=== PATIENT | female | born 1950 | race Caucasian/White ===

== ENCOUNTER → 2024-08-07 | Outpatient (CLI) | payer MEDICAID, SELFPAY ==
--- NOTE | 2024-08-07 14:05 | XR_ITS ---
Examination: Bone densitometry Date and time of exam:August 07, 2024 1415 hours INDICATIONS: Menopause age 51 Technique: Lumbar spine and hip total bone mineralization values of an calculated. Peak reference and age match control results have been displayed. Findings: Lumbar spine total bone mineralization is0.879 gm/cm2. This is 1.5 standard deviations below peak reference. This is 0.8 standard deviations above age-matched controls. Hip total bone mineralization is 0.888 gm/cm2 This is 0.4 standard deviations below peak reference. This is 1.2 standard deviations above age-matched controls Impression: There is osteopenia based on lumbar spine measurements. There is osteopenia based on hip measurements Lumbar mineralization is decreased 16.6% compared with August 25, 2017 Hip mineralization is decreased 15.9% compared with August 25, 2017
== END | disposition home or self-care (01) ==
PROVIDERS: PCP Physician Assistant; Referring Provider Physician Assistant; Visit Provider Physician Assistant
DX: M85.89 Other specified disorders of bone density and structure, multiple sites (principal)
CPT/HCPCS: 77080

== ENCOUNTER 2024-11-17 10:17 | Inpatient (IN) | payer MEDICARE, MEDICAID, SELFPAY ==
--- NOTE | 2024-11-17 | XR_ITS ---
Examination: CT abdomen with intravenous contrast CT pelvis with intravenous contrast 2-D coronal reconstructions 2-D sagittal reconstructions Date and time of exam:November 17, [address] abdomen and pelvis without contrast November 17, 2024 INDICATIONS: Left lower abdominal pain this week, acute sigmoid diverticulitis, suspicious for a 32 mm. Diverticular abscess on this CT abdomen and pelvis this morning. CTDI: vol (mGy) 32.9 DLP: (mGycm) 1315 Technique: Multiple axial sections of the abdomen and pelvis have been obtained. 64 slice high-resolution scanner used. 3 mm axial sections have been obtained, post intravenous injection 30 cc Isovue 300 2-D sagittal, coronal reconstructions obtained. Low dose protocols were performed. One or more of the following dose reduction techniques were used; automated exposure control, adjustment of the mA and/or KV according to patient size, use of iterative reconstruction technique. Findings: There is very poor opacification of the abdominal structures Absent gallbladder Left ileostomy again depicted Sigmoid diverticulitis again noted with a 4.5 x 3.3 cm. Peridiverticular abscess This is contiguous with the upper margin of the bladder and there is marked wall thickening in the bladder. IMPRESSION: Acute sigmoid diverticulitis 4.5 x 3.3 cm pelvic abscess Findings remains suspicious for fistulous communication diverticular abscess to the urinary bladder with marked cystitis
[2024-11-17 10:19] VITALS: BMI 26.9
[2024-11-17 10:45] VITALS: BP 143/72; PULSE 88; RESP 16; TEMP 36.8; O2SAT 96
--- NOTE | 2024-11-17 11:03 | XR_ITS ---
Examination: CT abdomen and pelvis without contrast. Coronal 3-D reconstructions. Sagittal 2-D reconstructions. Date and time of exam:November 17, 2024 1129 hrs. Comparison December 29, 2021 Indications: Painful urination one week, history appendectomy cholecystectomy colostomy secondary to diverticulitis CTDI: vol (mGy): 10.4 DLP: (mGycm): 524 Technique: Axial images of the abdomen have been obtained, 3 mm slice thickness Intravenous contrast material has not been administered. Low dose protocols were performed. One or more of the following dose reduction techniques were used; automated exposure control, adjustment of the mA and/or KV according to patient size, use of iterative reconstruction technique. Findings: No focal liver or splenic lesions Absent gallbladder No pancreatic or adrenal mass Left ileostomy Minimal fluid distended small bowel loops No bowel obstruction Absent appendix Mild acute sigmoid diverticulitis Suspicious for 32 mm peridiverticular abscess axial image 173 on this noncontrast study Urinary bladder wall thickening, suspicious for fistulous communication between the abscess and the urinary bladder Impression: Acute sigmoid diverticulitis Suspicious for 32 mm peridiverticular abscess on this noncontrast study Suspicious for fistulous communication between the abscess and the urinary bladder producing marked cystitis pattern Repeating this study with intravenous contrast would be helpful
--- NOTE | 2024-11-17 11:23 | PD.EDADULT ---
ED General RME/HPI General Chief complaint: Urogenital-Female Stated complaint: DYSURIA X2 WEEKS ON ABX Time Seen by Provider: 11/17/24 11:08 Arrival date/time: 11/17/24 10:17 Limitations: no limitations RME / HPI RME / HPI narrative: DR. BRADLEY MAIN ED EVALUATION: 74 year old female with past medical history significant for chronic kidney disease presents to the Emergency Department with complaint of dysuria and mild hematuria onset 2 weeks. Patient states she went to see her PCP on Monday, 6 days ago, and was prescribed macrobid for her UTI, which helped for a couple of days but now worsening again in the last 2 days. Patient is nauseous but no vomiting or diarrhea. Related Data Home Medications ?Medication ?Instructions ?Recorded ?Confirmed MONTELUKAST SODIUM 10 mg PO QDAY 30 days ##0 06/08/17 12/29/21 losartan 50 mg tablet 50 mg PO QDAY 12/30/21 12/30/21 Held on 01/01/22. Instructions: Resume on 01/24/22. Follow-up with nephrology and PCP within 2 weeks of discharge prior to resuming this medication Allergies Allergy/AdvReac Type Severity Reaction Status Date / Time codeine Allergy Intermediate Rash Verified 11/17/24 10:18 Review of Systems Review of Systems Systems Reviewed: All systems reviewed, normal except as documented Past Medical History Past Medical History CARDIAC: Positive Cardiac Disorders, Hypercholesterolemia and Hypertension RESPIRATORY: Positive Chronic Obstructive Pulmonary Disease (COPD), Bronchitis and Pneumonia GASTROINTESTINAL: Positive Gastrointestinal Disorders and Gall Bladder Disease GENITOURINARY: Positive Genitourinary Disorders REPRODUCTIVE: Positive Previous Pregnancies PSYCHO/SOCIAL: Positive Depression and Anxiety OTHER HISTORY: Positive Hospitalization Family History FAMILY HISTORY: Positive Family Psychiatric Problems, Family Respiratory Disorders, Family Cardiac Disorders and Family Surgery Surgical History SURGICAL: Positive Gastrostomy Social History SMOKING STATUS: Never smoker SUBSTANCE USE: does not use ALCOHOL: Never ED Exam General Limitations: Present no limitations General appearance: Present alert and in no apparent distress Head Head exam: Present atraumatic, normocephalic and normal inspection Eye Eye exam: Present normal appearance, PERRL and EOMI ENT ENT exam: Present normal exam, normal oropharynx and mucous membranes moist Neck Neck exam: Present normal inspection, full ROM and trachea midline Chest Chest inspection: Present normal inspection and symmetric chest wall rise Respiratory Respiratory exam: Present normal lung sounds bilaterally Cardiovascular Cardiovascular exam: Present regular rate, normal rhythm and normal heart sounds Abdominal Exam Abdominal exam: Present soft, normal bowel sounds and other (left colostomy bag, stools in place) Extremities Exam Extremities exam: Present normal inspection and full ROM Back Exam Back exam: Present normal inspection and full ROM Neurological Exam Neurological exam: Present alert, oriented X3 and CN II-XII intact Psychiatric Psychiatric exam: Present normal affect and normal mood Skin Skin exam: Present warm, dry, intact and normal color Course Quality Measures none Orders Category Date Time Status COVID-19 Screening Questionnaire NOW Care 11/17/24 17:[address] Screening NOW Care 11/17/24 12:41 Active Decision to Admit X1 Care 11/17/24 17:17 Active Insert [Insert IV] NOW Care 11/17/24 11:26 Active Consult to General Surgery Stat Cons 11/17/24 17:[address] abdomen pelvis w con Stat Exams 11/17/[address] abdomen pelvis wo con Stat Exams 11/17/24 11:03 Completed Blood Culture (Lab) Stat Lab 11/17/24 13:00 Received CBC Stat Lab 11/17/24 11:40 Completed Comprehensive Metabolic Panel Stat Lab 11/17/24 11:40 Completed Lactic Acid [Lactate (Lactic Acid)] Stat Lab 11/17/24 13:04 Completed Lipase Stat Lab 11/17/24 11:40 Completed UA, C/S IF [Urinalysis, C/S if Indicated] Stat Lab 11/17/24 11:32 Completed Urine Culture Stat Lab 11/17/24 11:32 Received Famotidine Inj [Pepcid Inj] Med 11/17/24 11:29 Discontinued 20 mg IVP X1 ONE Ondansetron Inj [Zofran Inj] Med 11/17/24 11:26 Discontinued 4 mg IV X1 ONE Piper/Tazo 3.375 gm Premix [Zosyn] Med 11/17/24 12:49 Discontinued 3.375 gm in 50 ml IV X1 Piper/Tazo 3.375 gm Premix [Zosyn] Med 11/17/24 19:00 Active 3.375 gm in 50 ml IV X1 Sodium Chloride 0.9% 1000 ml [Ns] 1,000 ml Med 11/17/24 11:26 Discontinued IV 999 mls/hr Vital Signs Vital signs: Vital Signs Temperature 98.3 F 05/25/25 10:45 Pulse Rate 88 11/17/24 10:45 Respiratory Rate 16 11/17/24 10:45 Blood Pressure 143/72 H 11/17/24 10:45 Pulse Oximetry (%) 96 11/17/24 10:45 Oxygen Delivery Method Room Air 11/17/24 10:45 Critical Care Time Critical Care Time Critical Care Time: Yes Total Critical Care Time (min.): 80 Attestation: The high probability of sudden, clinically significant deterioration in the patient?s condition required the highest level of my preparedness to intervene urgently. The services I provided to this patient were to treat and/or prevent clinically significant deterioration. Services included the following: chart data review, reviewing nursing notes and/or old charts, documentation time, client care consultant collaboration regarding findings and treatment options, medication orders and management, direct patient care, vital sign assessments and ordering, interpreting and reviewing diagnostic studies and lab tests. Aggregate critical care time includes only time during which I was engaged in work directly related to the patient?s care, as described above, whether at bedside or elsewhere in the Emergency Department. It did not include time spent performing other reported procedures or the services of residents, students, nurses or physician assistants. Discharge Plan Plan Patient Disposition: Admit Acute Care w/in Hospital Prescriptions/Referrals Prescriptions/Med Rec: No Action MONTELUKAST SODIUM 10 MG tablet 10 mg PO QDAY 30 Days Qty: 0 losartan 50 mg Tablet 50 mg PO QDAY Referrals: Katharina Arana PA-C [Primary Care Provider] - In 1 week Problem List Clinical Impression: Diverticulitis of sigmoid colon, Pelvic abscess Patient/Caregiver Discharge Instructions Print Language: Spanish Stand Alone Forms: Josette Award Info., Patient Portal Info Letter MDM Narrative [facility] hospital course: I, Dyan Salgado am scribing for and in the presence of Dr. Bradley. Abdomen/pelvis CT came back and showed acute sigmoid diverticulitis, and suspicious for 32 mm peridiverticular abscess on this noncontrast study and/or fistulous communication between the abscess and the urinary bladder producing marked cystitis pattern. We will repeat this study with intravenous contrast. Abdomen/pelvis CT with contrast showed acute sigmoid diverticulitis, 4.5 x 3.3 cm pelvic abscess, and findings remains suspicious for fistulous communication diverticular abscess to the urinary bladder with marked cystitis. Clinical Information Provided by patient Medical Records Reviewed [facility] Meds/Rx Considered, not Ordered None Labs/Rad/Tests considered, not Ordered None Chronic Illness/Social Conditions Add or document further as needed: chronic kidney disease Lab Interpretation Labs: see narrative above Imaging Imaging interpretation: see narrative above Radiology reports / interpretation(s): Procedure(s): CT abdomen pelvis wo con Accession Number(s): [id number] cc: Katharina Arana PA-C; John (NIA),Ignacio KRAMER; Manjinder Palacios MD~ Examination: CT abdomen and pelvis without contrast. Coronal 3-D reconstructions. Sagittal 2-D reconstructions. Date and time of exam:November 17, 2024 1129 hrs. Comparison December 29, 2021 Indications: Painful urination one week, history appendectomy cholecystectomy colostomy secondary to diverticulitis CTDI: vol (mGy): 10.4 DLP: (mGycm): 524 Technique: Axial images of the abdomen have been obtained, 3 mm slice thickness Intravenous contrast material has not been administered. Low dose protocols were performed. One or more of the following dose reduction techniques were used; automated exposure control, adjustment of the mA and/or KV according to patient size, use of iterative reconstruction technique. Findings: No focal liver or splenic lesions Absent gallbladder No pancreatic or adrenal mass Left ileostomy Minimal fluid distended small bowel loops No bowel obstruction Absent appendix Mild acute sigmoid diverticulitis Suspicious for 32 mm peridiverticular abscess axial image 173 on this noncontrast study Urinary bladder wall thickening, suspicious for fistulous communication between the abscess and the urinary bladder Impression: Acute sigmoid diverticulitis Suspicious for 32 mm peridiverticular abscess on this noncontrast study Suspicious for fistulous communication between the abscess and the urinary bladder producing marked cystitis pattern Repeating this study with intravenous contrast would be helpful Dictated By: Manjinder Palacios MD Procedure(s): CT abdomen pelvis w con Accession Number(s): [id number] cc: Katharina Arana PA-C; Shelton Bradley MD; Manjinder Palacios MD~ Examination: CT abdomen with intravenous contrast CT pelvis with intravenous contrast 2-D coronal reconstructions 2-D sagittal reconstructions Date and time of exam:November 17, [address] abdomen and pelvis without contrast November 17, 2024 INDICATIONS: Left lower abdominal pain this week, acute sigmoid diverticulitis, suspicious for a 32 mm. Diverticular abscess on this CT abdomen and pelvis this morning. CTDI: vol (mGy) 32.9 DLP: (mGycm) 1315 Technique: Multiple axial sections of the abdomen and pelvis have been obtained. 64 slice high-resolution scanner used. 3 mm axial sections have been obtained, post intravenous injection 30 cc Isovue 300 2-D sagittal, coronal reconstructions obtained. Low dose protocols were performed. One or more of the following dose reduction techniques were used; automated exposure control, adjustment of the mA and/or KV according to patient size, use of iterative reconstruction technique. Findings: There is very poor opacification of the abdominal structures Absent gallbladder Left ileostomy again depicted Sigmoid diverticulitis again noted with a 4.5 x 3.3 cm. Peridiverticular abscess This is contiguous with the upper margin of the bladder and there is marked wall thickening in the bladder. IMPRESSION: Acute sigmoid diverticulitis 4.5 x 3.3 cm pelvic abscess Findings remains suspicious for fistulous communication diverticular abscess to the urinary bladder with marked cystitis Dictated By: Manjinder Palacios MD Medication Administration(s) Medication Administration History Piperacillin/Tazobactam/Dextrose (Zosyn) 3.375 gm in 50 mls @ 100 mls/hr IV X1 ONE Stop: 11/17/24 19:29 Discontinued Medications Famotidine (Famotidine Inj 10 Mg/Ml Vial 2 Ml) 20 mg IVP X1 ONE Stop: 11/17/24 11:30 Last Admin: 11/17/24 11:46 Dose: 20 mg Documented By: AMANDA Sodium Chloride (Ns) 1,000 mls @ 999 mls/hr IV .Q1H1M ONE Stop: 11/17/24 12:26 Last Infusion: 11/17/24 13:05 Dose: Infused Documented By: Admin: 11/17/24 11:45 Dose: 999 mls/hr Documented By: AMANDA Piperacillin/Tazobactam/Dextrose (Zosyn) 3.375 gm in 50 mls @ 100 mls/hr IV X1 ONE Stop: 11/17/24 13:18 Last Infusion: 11/17/24 13:38 Dose: Infused Documented By: Admin: 11/17/24 13:05 Dose: 100 mls/hr Documented By: AMANDA Ondansetron HCl (Ondansetron Inj 2 Mg/Ml Inj 2 Ml) 4 mg IV X1 ONE; Protocol Stop: 11/17/24 11:27 Last Admin: 11/17/24 11:46 Dose: 4 mg Documented By: AMANDA Consultations/Discussions re: Management Consult #1: Date/time: 11/17/24 5:14 pm Physician, specialty, service, details: Discussed test HPI, PMHx, lab, radiology results and/or management with Dr. Soto. Will consult an admission to the hospitalist. Consult #2: Date/time: 11/17/24 5:15 pm Physician, specialty, service, details: Discussed test HPI, PMHx, lab, radiology results and/or management with resident Dr. Velasquez working with the hospitalist. Will admit for further evaluation and management. Accepts patient for admission. Diagnosis Differential diagnosis: UTI, pyelonephritis, sepsis Most likely dx, and/or detailed dx discussion: Acute sigmoid diverticulitis Pelvis abscess Fistula between the abscess and the bladder Dispositon Disposition: Admit
[2024-11-17] MEDS: SODIUM CHLORIDE 0.9% 1000 ML 1,000 ML 999 ML IV (11:45)
[2024-11-17] MEDS: FAMOTIDINE INJ 10 MG/ML VIAL 2 ML 20 MG IVP (11:46)
[2024-11-17] MEDS: ONDANSETRON INJ 2 MG/ML INJ 2 ML 4 MG IV (11:46)
[2024-11-17 12:05] LABS: Collection Type, Urine Clean Catch
[2024-11-17 12:11] LABS: Basophils # (Auto) 0.1 Thou/mm3 (0.0-0.2); Basophils % (Auto) 0 % (0-2.5); Eosinophils # (Auto) 0.1 Thou/mm3 (0.0-0.5); Eosinophils % (Auto) 1 % (0-10); Hematocrit 35.2 % (36.0-46.0); Hemoglobin 11.7 g/dL (12.0-16.0); Immature Granulocytes % (Auto) 1 % (0-0); Immature Granulocytes Auto 0.11 Thou/mm3 (0.00-0.00); Lymphocytes % (Auto) 29 % (10-50); Mean Corpuscular HGB Conc 33.2 g/dl (31.0-37.0); Mean Corpuscular Volume 87 fL (80-100); Monocytes # (Auto) 1.5 Thou/mm3 (0.0-0.8); Monocytes % (Auto) 11 % (0-12); Neutrophils # (Auto) 8.1 Thou/mm3 (1.8-7.7); Neutrophils % (Auto) 58 % (37-80); Nucleated Red Blood Cell % 0 /100 WBC (0); Platelet Count 386 Thou/mm3 (140-440); RDW Standard Deviation 39.8 fL (36.4-46.3); Red Blood Count 4.04 Miln/mm3 (4.00-5.20); White Blood Count 13.8 Thou/mm3 (3.6-11.0)
[2024-11-17 12:34] LABS: Alanine Aminotransferase 26 U/L (10-49); Albumin/Globulin Ratio 1.2 (1.2-2.2); Alkaline Phosphatase 96 U/L (46-116); Anion Gap 11 (7-16); Aspartate Amino Transferase 19 U/L (0-34); BUN/Creatinine Ratio 19 Ratio (12-20); Bilirubin,Total 0.5 mg/dL (0.3-1.2); Blood Urea Nitrogen 26 mg/dL (9-23); Calcium 8.6 mg/dL (8.3-10.6); Calcium (Corrected) 8.6 mg/dL (8.5-10.1); Chloride 107 mMol/L (98-107); Creatinine (Component) 1.4 mg/dL (0.6-1.3); Estimated Creatinine Clearance 32.1 mL/min (>60); Globulin 3.3 gm/dL (2.3-3.5); Glucose 79 mg/dL (74-106); Lipase 45 U/L (12-53); Osmolality,Calculated 290 (275-295); Potassium 4.3 mMol/L (3.4-5.1); Sodium 144 mMol/L (136-145); Total Protein 7.3 gm/dL (5.7-8.2); eGFR 40 See Note
[2024-11-17 12:45] LABS: Bilirubin,Urine Negative (Negative); Blood,Urine 1+ (Negative); Color,Urine Yellow (Lt Yel-Yel); Glucose, Urine Negative (Negative); Ketones,Urine Negative (Negative); Leukocyte Esterase,Urine Negative (Negative); Nitrite,Urine Negative (Negative); PH,Urine 6.5 (5.0-7.0); Protein,Urine 2+ (Neg - Trace); RBC,Urine 7 /hpf (0-3); Squamous Epithelial Cell,Urine 8 /hpf (0-5); Transitional Epi Cells,Urine < 1 /hpf (0-5); Urobilinogen,Urine Negative mg/dL (0.0-1.0); WBC,Urine 12 /hpf (0-5)
[2024-11-17 12:55] LABS: Clarity,Urine Hazy (Clear/Hazy); Culture Indicated,Urine Yes
[2024-11-17] MEDS: PIPER/TAZO 3.375 GM PREMIX 3.375 GM/50 ML BAG IV ×2 (13:05→21:14)
[2024-11-17 13:07] LABS: Lactate (Lactic Acid) 0.9 mMol/L (0.4-2.0)
[2024-11-17 14:35] VITALS: BP 162/75; PULSE 74; RESP 16; TEMP 36.7; O2SAT 95
--- NOTE | 2024-11-17 17:25 | PD.RESHP ---
Documentation for date of: 11/17/24 HPI History of Present Illness Chief complaint: suprapubic/abdominal pain History of present illness: 74-year-old female with past medical history of chronic kidney disease, diverticulosis, COPD, hypertension, history of ileostomy presented to the ED due to abdominal pain. Patient states she had suprapubic pain about 2 weeks ago pain was exacerbated when she urinated took antifungal thinking it was yeast infection however did not improve and later went to her primary care physician who prescribed nitrofurantoin and rifampin finished a course about 2 days ago but did not improve. Patient states her belly feels swollen and is having left lower quadrant and suprapubic pain that it gets worse with changing in position. At this time patient denies fever, chills, shortness of breath, chest pain, nausea, vomiting, recent sick contacts. Patient will be admitted for acute diverticulitis. ED course: ED vitals: BP 143/72, HR 88, RR 16, O2 sat 96% on room air ED labs: Leukocytosis, normocytic anemia, BUN 26, creatinine 1.4, GFR 40, UA shows +2 protein, +1 blood, 7 RBCs, [address] abdomen pelvis shows acute sigmoid diverticulitis with 4.5 x 3.3 cm pelvic abscess, fistulous communication diverticular abscess to urinary bladder with marked cystitis In the ED patient received Zosyn, famotidine, Zofran, 1 L NS PMHx: As above SX Hx: Ileostomy, appendectomy, cholecystectomy, Social Hx: Denies smoking, denies alcohol use denies illicit substances including THC FH X: Unknown allergies: Codeine causes rash Review of Systems Review of Systems Systems Reviewed: All systems reviewed, normal except as documented Narrative Review of Systems: All 12 systems reviewed and found normal unless otherwise stated in the HPi Exam Vital Signs Temp Pulse Resp BP Pulse Ox O2 Del Method 98.0 F 74 16 162/75 H 95 Room Air 11/17/24 14:35 11/17/24 14:35 11/17/24 14:35 11/17/24 14:35 11/17/24 14:35 11/17/24 14:35 Narrative Exam Physical Exam GENERAL: NAD, AAOx3 HEENT: Moist mucosa. Eyes open, symmetrical, & clear CARDIO: Heart RRR, no obvious murmurs PULM: No noted coughing/dyspnea CTA B/L, no R/W/R GI: Abdomen soft, nondistended, pain on palpation of left lower quadrant and suprapubic area ileostomy in place SKIN/MSK/EXT: No wounds/rashes/edema/amputations, no pain on palpation. Pedal pulses present B/L NEURO: AAOx3, no focal neuro deficits, able to move all 4 extremities Results: Labs 11/18/24 05:39 11/18/24 05:39 Labs: Short CBC 11/17/24 Range/Units 11:40 WBC 13.8 H (3.6-11.0) Thou/mm3 Hgb 11.7 L (12.0-16.0) g/dL Hct 35.2 L (36.0-46.0) % Plt Count 386 (140-440) Thou/mm3 BMP 11/17/24 11:40 Sodium 144 Potassium 4.3 Chloride 107 Carbon Dioxide 26.0 BUN 26 H Creatinine 1.4 H Glucose 79 Calcium 8.6 Liver Function 11/17/24 Range/Units 11:40 Total Bilirubin 0.5 (0.3-1.2) mg/dL AST 19 (0-34) U/L ALT 26 (10-49) U/L Alkaline Phosphatase 96 (46-116) U/L Albumin 4.0 (3.4-4.8) gm/dL Urine 11/17/24 Range/Units 11:32 Urine Color Yellow (Lt Yel-Yel) Urine Clarity Hazy (Clear/Hazy) Urine pH 6.5 (5.0-7.0) Ur Specific [place] 1.020 (1.001-1.035) Urine Protein 2+ A (Neg - Trace) Urine Glucose (UA) Negative (Negative) Quality Measures Quality Measures none Advance care planning discussed with:: patient Medications Home Medications and Allergies Home Medications ?Medication ?Instructions ?Recorded ?Confirmed ?Type losartan 50 mg tablet 50 mg PO QDAY 12/30/21 11/17/24 History Held on 01/01/22. Instructions: Resume on 01/24/22. Follow-up with nephrology and PCP within 2 weeks of discharge prior to resuming this medication carvedilol 12.5 mg tablet 12.5 mg PO 2XD 11/17/24 11/17/24 History nitrofurantoin 100 mg PO 1XD 11/17/24 11/17/24 History monohydrate/macrocrystals 100 mg capsule simvastatin 40 mg tablet 40 mg PO 1XD 11/17/24 11/17/24 History Allergies Allergy/AdvReac Type Severity Reaction Status Date / Time codeine Allergy Intermediate Rash Verified 11/17/24 10:18 Visit Medications Piperacillin/Tazobactam/Dextrose (Zosyn) 3.375 gm in 50 mls @ 100 mls/hr IV X1 ONE Stop: 11/17/24 19:29 Discontinued Medications Famotidine (Famotidine Inj 10 Mg/Ml Vial 2 Ml) 20 mg IVP X1 ONE Stop: 11/17/24 11:30 Last Admin: 11/17/24 11:46 Dose: 20 mg Sodium Chloride (Ns) 1,000 mls @ 999 mls/hr IV .Q1H1M ONE Stop: 11/17/24 12:26 Last Infusion: 11/17/24 13:05 Dose: Infused Piperacillin/Tazobactam/Dextrose (Zosyn) 3.375 gm in 50 mls @ 100 mls/hr IV X1 ONE Stop: 11/17/24 13:18 Last Infusion: 11/17/24 13:38 Dose: Infused Ondansetron HCl (Ondansetron Inj 2 Mg/Ml Inj 2 Ml) 4 mg IV X1 ONE; Protocol Stop: 11/17/24 11:27 Last Admin: 11/17/24 11:46 Dose: 4 mg Assessment & Plan Plan 74-year-old female with past medical history of CKD, diverticulosis, COPD, hypertension presented to the ED with left lower quadrant and suprapubic pain. Admitted for diverticulitis #Acute sigmoid diverticulitis #Peridiverticular abscess Patient states her belly feels swollen and is having left lower quadrant and suprapubic pain that it gets worse with changing in position Findings on CT show 4.5 x 3.3 cm abscess contiguous with the upper margin of the bladder and there is marked wall thickening ? on Zosyn ( ? Follow-up cultures ? IV fluids ? Clear liquid diet ? General Surgery Dr. Patel consulted, appreciate recommendations #CKD stage IIIb ? on IVF ? Avoid nephrotoxins ? Renally dose medications #COPD ? DuoNebs as needed #Hypertension ? Resume losartan 50 mg daily as taken at home once med rec is done Health Maintenance: Disposition: Med telemetry, IV antibiotics Fluids: NS Feeding: Clear liquid diet Thrombo prophylaxis: Lovenox Gastric Ulcer prophylaxis: Pantoprazole CODE STATUS: Limited code, no intubation Case discussed with my attending Dr. Kathia Toledo MD PGY-1 Attending Provider Attestation/Addendum Luz Maria Murphy, , attest that I was physically present for the valdez portions of the service and evaluated the patient with the resident and I reviewed and discussed the case with the resident and agree with the resident's findings and plans of care as documented above Patient is a 74-year-old female with past medical history of CKD,, hypertension and diverticulitis status post ileostomy and bowel resection who was brought to ED due to worsening abdominal pain. Patient states that she has had pain with urination for the past 2 weeks and was given Pyridium and antibiotics. However, she continued to have excruciating pain with urination in her suprapubic region. Patient subsequently brought to the ED due to worsening abdominal pain during which CT abdomen pelvis was done showing acute sigmoid diverticulitis with a suspicious 32 mm peridiverticular abscess and suspicious for fistulous communication between the abscess and urinary bladder causing cystitis pattern. Patient denies noting any changes in her urine including passing air or any discharge. Bowel movements have been regular. Patient states that she follows with Dr. Tr ahuja in [place] and plans for reversal of ileostomy in the near future. Patient has had previous episodes of diverticular abscess and noted to have a scar in her left lower quadrant due to abscess drainage. Ileostomy has been functioning and tissue appear healthy. She endorses having some pain and tenderness to palpation in her left lower quadrant. Will admit patient to med/telemetry for further workup and medical management of acute diverticulitis complicated by abscess. Will start on IV antibiotics and follow-up cultures. IR currently not available due to weekend. But will consult IR on Monday once available. Surgeon will be following and case was discussed with surgeon at bedside.
[2024-11-17 18:01] VITALS: BP 153/75; PULSE 78; RESP 18; TEMP 37; O2SAT 95
[2024-11-17 18:29] VITALS: PULSE 76; RESP 17; O2SAT 94
--- NOTE | 2024-11-17 18:37 | PD.SURCONS ---
HPI Consult details History of present illness: 74F HTN, COPD, CKD, chronic diverticulitis s/p diverting colostomy at [facility] (Dr Armando) planned for reversal in December, presenting with a painful UTI. Patient reports she has been having severe pain with urination for the past 2 weeks, had been prescribed Macrobid but felt that her symptoms worsened prompting her to seek care in ER. She denies any pneumaturia or fecaluria, at the moment is not having any abdominal pain. She has mild nausea but no fever or malaise and states her colostomy has been functioning throughout this time PMH: HTN, COPD, CKD, chronic diverticulitis PSH: Appendectomy, cholecystectomy, diverting colostomy Meds: No antiplatelet or anticoagulation Allergies: Codeine causes rash Review of Systems Review of Systems ROS Unobtainable: All systems reviewed & no additional complaints except as documented Meds Home Medications and Allergies Home Medications ?Medication ?Instructions ?Recorded ?Confirmed ?Type MONTELUKAST SODIUM 10 mg PO QDAY 30 days ##0 06/08/17 12/29/21 History losartan 50 mg tablet 50 mg PO QDAY 12/30/21 12/30/21 History Held on 01/01/22. Instructions: Resume on 01/24/22. Follow-up with nephrology and PCP within 2 weeks of discharge prior to resuming this medication Allergies Allergy/AdvReac Type Severity Reaction Status Date / Time codeine Allergy Intermediate Rash Verified 11/17/24 10:18 Exam Vital Signs Temp Pulse Resp BP Pulse Ox O2 Del Method 98.6 F 76 17 153/75 H 94 L Room Air 11/17/24 18:01 11/17/24 18:29 11/17/24 18:29 11/17/24 18:01 11/17/24 18:29 11/17/24 18:01 Constitutional Constitutional: no acute distress Routine Respiratory Exam Respiratory: Present no resp distress Routine Abdominal Exam Abdominal: Present soft and ostomy (Colostomy pink with brown stool in appliance); Absent tenderness or distended Results Results: Laboratory Laboratory results: results reviewed Results: Imaging CT scan - abdomen: report reviewed Assessment & Plan Plan 74F HTN, COPD, CKD, chronic diverticulitis s/p diverting colostomy at [facility] (Dr Armando) planned for reversal in December, presenting with a painful UTI workup consistent with sigmoid diverticulitis and associated colovesicular fistula. Patient appears overall clinically well with no signs of severe infection, not requiring urgent intervention IV ABX CLD, advance as tolerated Percutaneous drainage if abscess is amenable Follow up with Dr. Armando as outpatient
[2024-11-17 19:15] VITALS: BP 145/77; PULSE 78; RESP 18; TEMP 37.2; O2SAT 93
[2024-11-17] MEDS: SODIUM CHLORIDE 0.9% 1000 ML 1,000 ML 60 ML IV (19:18)
--- NOTE | 2024-11-17 19:38 | PC.NURSE ---
REPORT GIVEN TO LAURENCE NIX AT [facility]
[2024-11-17 20:00] VITALS: PULSE 73
[2024-11-17] MEDS: MELATONIN 3 MG TABLET PO (21:14)
[2024-11-18] VITALS (9 sets, daily range): BP systolic 113–152; BP diastolic 62–86; PULSE 66–85; RESP 17–19; TEMP 36.3–36.9; O2SAT 93–97; BMI 26.9
[2024-11-18] MEDS: PIPER/TAZO 3.375 GM PREMIX 3.375 GM/50 ML BAG IV ×3 (05:05→20:45)
[2024-11-18] MEDS: ONDANSETRON INJ 2 MG/ML INJ 2 ML 4 MG IVP ×2 (06:02→20:15)
[2024-11-18 06:44] LABS: Alanine Aminotransferase 18 U/L (10-49); Albumin, Serum 3.5 gm/dL (3.4-4.8); Albumin/Globulin Ratio 1.3 (1.2-2.2); Alkaline Phosphatase 78 U/L (46-116); Anion Gap 11 (7-16); Aspartate Amino Transferase 15 U/L (0-34); BUN/Creatinine Ratio 13 Ratio (12-20); Bilirubin,Total 0.5 mg/dL (0.3-1.2); Blood Urea Nitrogen 18 mg/dL (9-23); Calcium 8.3 mg/dL (8.3-10.6); Calcium (Corrected) 8.7 mg/dL (8.5-10.1); Carbon Dioxide 24.8 mMol/L (20.0-31.0); Chloride 109 mMol/L (98-107); Creatinine (Component) 1.4 mg/dL (0.6-1.3); Estimated Creatinine Clearance 32.1 mL/min (>60); Globulin 2.7 gm/dL (2.3-3.5); Glucose 84 mg/dL (74-106); Magnesium 1.7 mg/dL (1.6-2.6); Osmolality,Calculated 289 (275-295); Potassium 4.2 mMol/L (3.4-5.1); Sodium 145 mMol/L (136-145); Total Protein 6.2 gm/dL (5.7-8.2); eGFR 40 See Note
[2024-11-18 07:07] LABS: Basophils # (Auto) 0.1 Thou/mm3 (0.0-0.2); Basophils % (Auto) 1 % (0-2.5); Eosinophils # (Auto) 0.1 Thou/mm3 (0.0-0.5); Eosinophils % (Auto) 1 % (0-10); Hematocrit 32.6 % (36.0-46.0); Hemoglobin 10.7 g/dL (12.0-16.0); Immature Granulocytes % (Auto) 1 % (0-0); Immature Granulocytes Auto 0.09 Thou/mm3 (0.00-0.00); Lymphocytes # (Auto) 2.3 Thou/mm3 (1.0-4.8); Lymphocytes % (Auto) 25 % (10-50); Mean Corpuscular HGB Conc 32.8 g/dl (31.0-37.0); Mean Corpuscular Hemoglobin 29.2 pg (25.0-35.0); Mean Corpuscular Volume 89 fL (80-100); Monocytes # (Auto) 0.9 Thou/mm3 (0.0-0.8); Monocytes % (Auto) 10 % (0-12); Neutrophils # (Auto) 5.9 Thou/mm3 (1.8-7.7); Neutrophils % (Auto) 63 % (37-80); Nucleated Red Blood Cell % 0 /100 WBC (0); Platelet Count 282 Thou/mm3 (140-440); RDW Standard Deviation 39.8 fL (36.4-46.3); Red Blood Count 3.67 Miln/mm3 (4.00-5.20); White Blood Count 9.4 Thou/mm3 (3.6-11.0)
[2024-11-18] MEDS: Magnesium Sulfate 4 GM Ivpb 4 GM/50 ML BAG IV (09:20)
[2024-11-18] MEDS: SENNA TABLET 1 TAB PO (09:20)
[2024-11-18] MEDS: ENOXAPARIN SOD INJ 40 MG/0.4 ML SYRINGE SC (09:20)
--- NOTE | 2024-11-18 11:33 | PD.RESPRO ---
Documentation for date of: 11/18/24 Subjective Subjective Interval history: 11/18/2024: No acute overnight events to report. Patient seen and examined in hospital bed reporting improvement in presenting symptoms; however, with examination she still has some tenderness to palpation of the left lower quadrant. Blood cultures are positive for GPC, likely contaminant but we will repeat blood cultures. General surgery recommends clear liquid diet and advancing as tolerated;, patient will be n.p.o. after midnight for CT-guided IR drainage of the abscess. Will continue to monitor and expect discharge within the next 24-48 hours. Exam Vital Signs Temp Pulse Resp BP Pulse Ox O2 Del Method 97.4 F 77 18 132/74 H 95 Room Air 11/18/24 08:00 11/18/24 08:15 11/18/24 08:15 11/18/24 08:00 11/18/24 08:15 11/18/24 08:00 Narrative Exam Physical Exam: GENERAL: Awake, answering questions appropriately, appears stated age HEENT: Moist mucosa. Eyes open, symmetrical, & clear CARDIO: Heart RRR, no obvious murmurs PULM: No noted coughing/dyspnea CTA B/L, no R/W/R GI: Abdomen soft, nondistended, pain on palpation of left lower quadrant and suprapubic area ileostomy in place SKIN/MSK/EXT: No wounds/rashes/edema/amputations, no pain on palpation. Pedal pulses present B/L NEURO: AAOx3, no focal neuro deficits, able to move all 4 extremities Objective Labs 11/19/24 04:40 11/19/24 04:40 Labs: Laboratory Results - last 24 hr 11/17/24 11/17/24 11/17/24 11:32 11:40 13:04 WBC 13.8 H RBC 4.04 Hgb 11.7 L Hct 35.2 L MCV 87 MCH 29.0 MCHC 33.2 RDW Std Deviation 39.8 Plt Count 386 Neut % (Auto) 58 Lymph % (Auto) 29 [place] % (Auto) 11 Eos % (Auto) 1 Baso % (Auto) 0 Neut # (Auto) 8.1 H Lymph # (Auto) 4.0 [place] # (Auto) 1.5 H Eos # (Auto) 0.1 Baso # (Auto) 0.1 Immature Gran # (Auto) 0.11 H Absolute Nucleated RBC 0.00 Immature Gran % 1 H Nucleated RBC % 0 Sodium 144 Potassium 4.3 Chloride 107 Carbon Dioxide 26.0 Anion Gap 11 BUN 26 H Creatinine 1.4 H Estim Creat Clear Calc 32.1 L eGFR 40 L BUN/Creatinine Ratio 19 Glucose 79 Calculated Osmolality 290 Lactic Acid 0.9 Calcium 8.6 Corrected Calcium 8.6 Phosphorus Magnesium Total Bilirubin 0.5 AST 19 ALT 26 Alkaline Phosphatase 96 Total Protein 7.3 Albumin 4.0 Globulin 3.3 Albumin/Globulin Ratio 1.2 Lipase 45 Ur Collection Type Clean Catch Urine Color Yellow Urine Clarity Hazy Urine pH 6.5 Ur Specific [place] 1.020 Urine Protein 2+ A Urine Glucose (UA) Negative Urine Ketones Negative Urine Blood 1+ A Urine Nitrite Negative Urine Bilirubin Negative Urine Urobilinogen (Auto) Negative Ur Leukocyte Esterase Negative Urine RBC 7 H Urine WBC 12 H Ur Squamous Epith Cells 8 H Ur Transition Epith Cell < 1 Urine Bacteria None Ur Culture Indicated? Yes 11/18/24 05:39 WBC 9.4 RBC 3.67 L Hgb 10.7 L Hct 32.6 L MCV 89 MCH 29.2 MCHC 32.8 RDW Std Deviation 39.8 Plt Count 282 D Neut % (Auto) 63 Lymph % (Auto) 25 [place] % (Auto) 10 Eos % (Auto) 1 Baso % (Auto) 1 Neut # (Auto) 5.9 Lymph # (Auto) 2.3 [place] # (Auto) 0.9 H Eos # (Auto) 0.1 Baso # (Auto) 0.1 Immature Gran # (Auto) 0.09 H Absolute Nucleated RBC 0.00 Immature Gran % 1 H Nucleated RBC % 0 Sodium 145 Potassium 4.2 Chloride 109 H Carbon Dioxide 24.8 Anion Gap 11 BUN 18 Creatinine 1.4 H Estim Creat Clear Calc 32.1 L eGFR 40 L BUN/Creatinine Ratio 13 Glucose 84 Calculated Osmolality 289 Lactic Acid Calcium 8.3 Corrected Calcium 8.7 Phosphorus 4.0 Magnesium 1.7 Total Bilirubin 0.5 AST 15 ALT 18 Alkaline Phosphatase 78 Total Protein 6.2 Albumin 3.5 D Globulin 2.7 Albumin/Globulin Ratio 1.3 Lipase Ur Collection Type Urine Color Urine Clarity Urine pH Ur Specific [place] Urine Protein Urine Glucose (UA) Urine Ketones Urine Blood Urine Nitrite Urine Bilirubin Urine Urobilinogen (Auto) Ur Leukocyte Esterase Urine RBC Urine WBC Ur Squamous Epith Cells Ur Transition Epith Cell Urine Bacteria Ur Culture Indicated? Quality Measures Quality Measures none Advance care planning discussed with:: patient Assessment & Plan Assessment Current Active Medications: Generic Name Dose Route Start Last Admin Trade Name Freq PRN Reason Stop Dose Admin Acetaminophen 650 mg 11/17/24 17:47 Acetaminophen 325 Mg Tablet PO 12/17/24 17:46 Q6H PRN Fever >99.5 Acetaminophen 1,000 mg 11/18/24 10:32 Acetaminophen 500 Mg Tablet PO 12/17/24 17:46 Q6H PRN PAIN SCALE 1-3 (mild Albuterol/Ipratropium 3 ml 11/17/24 18:20 Albuterol/Ipratropium (Duoneb) Rt Malissa 3 Ml Nebu INH 12/17/24 18:19 Q6H PRN SHORTNESS OF BREATH OR WHEEZE Docusate Sodium 100 mg 11/18/24 09:00 11/18/24 09:19 Docusate Sod 100 Mg Capsule PO 12/18/24 08:59 Not Given QDAY GRANT Protocol Enoxaparin Sodium 40 mg 11/18/24 09:00 11/18/24 09:20 Enoxaparin Sod Inj 40 Mg/0.4 Ml Syringe SC 12/02/24 08:59 40 mg QDAY GRANT Administration Piperacillin/Tazobactam/Dextrose 3.375 gm in 50 mls @ 12.5 mls/hr 11/17/24 22:00 11/18/24 05:05 Zosyn IV 11/24/24 21:59 12.5 mls/hr Q8HR GRANT Administration Sodium Chloride 1,000 mls @ 60 mls/hr 11/17/24 17:51 11/17/24 19:18 Ns IV 12/17/24 17:50 60 mls/hr .[id number] GRANT Administration Magnesium Sulfate 4 gm in 50 mls @ 12.5 mls/hr 11/18/24 07:54 11/18/24 09:20 Magnesium Sulfate Ivpb IV 11/18/24 11:53 12.5 mls/hr X1 ONE Administration Melatonin 3 mg 11/17/24 21:00 11/17/24 21:14 Melatonin 3 Mg Tablet PO 12/17/24 20:59 3 mg HS GRANT Administration Morphine Sulfate 2 mg 11/17/24 17:47 Morphine Sulf Inj 10 Mg/Ml Vial IVP 11/22/24 17:46 Q4H PRN PAIN SCALE 7-10 (Severe Ondansetron HCl 4 mg 11/17/24 17:47 11/18/24 06:02 Ondansetron Inj 2 Mg/Ml Inj 2 Ml IVP 12/17/24 17:46 4 mg Q6H PRN Administration NAUSEA OR VOMITING Protocol Sennosides 1 tab 11/18/24 09:00 11/18/24 09:20 Senna Tablet PO 12/18/24 08:59 1 tab QDAY GRANT Administration Protocol Plan 74-year-old female with past medical history of CKD, diverticulosis, COPD, hypertension presented to the ED with left lower quadrant and suprapubic pain. Admitted for diverticulitis with abscess. #Acute sigmoid diverticulitis #Peridiverticular abscess Patient states her belly feels swollen and is having left lower quadrant and suprapubic pain that it gets worse with changing in position Findings on CT show 4.5 x 3.3 cm abscess contiguous with the upper margin of the bladder and there is marked wall thickening Blood cultures positive on aerobic bottle with GPC; likely contaminant Plan: Continue IV Zosyn Repeat blood cultures sent Advancing diet, n.p.o. after midnight for CT-guided abscess drainage General Surgery Dr. Soto consulted, appreciate recommendations #CKD stage IIIb #Normocytic anemia, anemia of chronic disease #Electrolyte abnormalities Chronic medical condition, currently stable Anemia likely secondary to CKD Plan: Avoid nephrotoxic agents Renally dose medications when appropriate Monitor with morning labs Replete electrolytes when necessary Follow-up on iron panel, ferritin, reticulocyte count #COPD Chronic medical condition, patient is currently stable with no acute exacerbation Plan: DuoNebs as needed #Hypertension Patient on home losartan 50 mg daily Plan: Resume home medication Health Maintenance: Disposition: Med telemetry, IV antibiotics Fluids: NS Diet: Dysphagia I, renal; n.p.o. after midnight for CT-guided drainage of abscess DVT prophylaxis: Lovenox GI prophylaxis: Not needed Code: Limited code, no intubation Patient seen and assessed with attending Dr. Kathia Dennis, PGY-1 Attending Provider Attestation/Addendum Luz Maria Murphy, , attest that I was physically present for the valdez portions of the service and evaluated the patient with the resident and I reviewed and discussed the case with the resident and agree with the resident's findings and plans of care as documented above Patient seen and eval this a.m. She continues to have mild left lower quadrant pain. She endorses some dysuria. Afebrile overnight and no further episodes of chills. Will place patient n.p.o. after midnight and plan for CT-guided abscess drainage in a.m. by IR. Will continue with IV antibiotics at this time. Ileostomy appears to be functioning well.
--- NOTE | 2024-11-18 14:50 | PD.SURPROG ---
Documentation for date of: 11/18/24 Subjective Subjective Brief History: 74F HTN, COPD, CKD, chronic diverticulitis s/p diverting colostomy at [facility] (Dr Armando) planned for reversal in December, presenting with a painful UTI. Patient reports she has been having severe pain with urination for the past 2 weeks, had been prescribed Macrobid but felt that her symptoms worsened prompting her to seek care in ER. She denies any pneumaturia or fecaluria, at the moment is not having any abdominal pain. She has mild nausea but no fever or malaise and states her colostomy has been functioning throughout this time PMH: HTN, COPD, CKD, chronic diverticulitis PSH: Appendectomy, cholecystectomy, diverting colostomy Meds: No antiplatelet or anticoagulation Allergies: Codeine causes rash Narrative: Pain controlled, nausea this am but that has since improved, now tolerating pureed diet, remaining afebrile and WBC 9 from 13 Exam Vital Signs Temp Pulse Resp BP Pulse Ox O2 Del Method 97.9 F 69 19 144/73 H 95 Room Air 11/18/24 12:00 11/18/24 12:00 11/18/24 12:00 11/18/24 12:00 11/18/24 12:00 11/18/24 12:00 Constitutional Constitutional: no acute distress Routine Respiratory Exam Respiratory: Present no resp distress Routine Abdominal Exam Abdominal: Present soft; Absent tenderness or distended Results Results: Laboratory Laboratory results: results reviewed Assessment & Plan Plan 74F HTN, COPD, CKD, chronic diverticulitis s/p diverting colostomy at [facility] (Dr Armando) planned for reversal in December, presenting with a painful UTI workup consistent with sigmoid diverticulitis and associated colovesicular fistula. Patient appears overall clinically well with no signs of severe infection, not requiring urgent intervention Continue abx IR for possible percutaneous drainage tomorrow
--- NOTE | 2024-11-18 14:54 | PC.SS ---
rounding note: IR abscess
--- NOTE | 2024-11-18 15:05 | PC.SS ---
Maggie Blood is 74 year old female admitted to [facility] for Diverticulitis. SS conducted bedside contact with the patient to complete initial assessment and to discuss discharge planning.? SW used all precautionary measures to complete initial. Role and reason for the contact was explained to Maggie. Pt is alert and oriented times 4. Patient confirmed demographic information and is on facesheet and lives with her family. Patient identifies Lima Dao, granddaughter, as her surrogate decision maker. Pt states prior to hospitalization she is able to complete ADL?s independently. Pt does not use DME equipment nor O2. Pt confirmed no history of mental health or substance abuse. Pts PCP is Katharina Garcia last seen about 1-2 months ago. Pharmacy of choice is [facility]. Advance life directive discussed and pt not receptive. Pt does not have diabetes nor dialysis. If HH is needed then pt is receptive and no provider preference. Discharge options discussed and the pt will return home. ?Family will provide transportation upon DC. No further intervention required at this time, social work specialist would be available to address any further concerns. DC Plan: Home Contact: pranay Riversughter, Address: Confirmed on face sheet PCP: Katharina Garcia
[2024-11-18] MEDS: SODIUM CHLORIDE 0.9% 1000 ML 1,000 ML 60 ML IV (16:10)
[2024-11-18] MEDS: ACETAMINOPHEN 500 MG TABLET 1000 MG PO (20:13)
[2024-11-18] MEDS: MELATONIN 3 MG TABLET PO (20:17)
[2024-11-19] VITALS (15 sets, daily range): BP systolic 115–167; BP diastolic 52–98; PULSE 55–86; RESP 14–23; TEMP 36–36.7; O2SAT 94–100
[2024-11-19] MEDS: PIPER/TAZO 3.375 GM PREMIX 3.375 GM/50 ML BAG IV ×3 (05:20→21:34)
[2024-11-19 05:56] LABS: Basophils # (Auto) 0.1 Thou/mm3 (0.0-0.2); Basophils % (Auto) 1 % (0-2.5); Eosinophils # (Auto) 0.2 Thou/mm3 (0.0-0.5); Eosinophils % (Auto) 2 % (0-10); Hematocrit 31.4 % (36.0-46.0); Hemoglobin 10.5 g/dL (12.0-16.0); Immature Granulocytes % (Auto) 1 % (0-0); Immature Granulocytes Auto 0.07 Thou/mm3 (0.00-0.00); Immature Reticulocyte Fraction 13.1 % (3.0-15.9); Lymphocytes # (Auto) 1.9 Thou/mm3 (1.0-4.8); Lymphocytes % (Auto) 24 % (10-50); Mean Corpuscular HGB Conc 33.4 g/dl (31.0-37.0); Mean Corpuscular Hemoglobin 29.3 pg (25.0-35.0); Mean Corpuscular Volume 88 fL (80-100); Monocytes # (Auto) 0.8 Thou/mm3 (0.0-0.8); Monocytes % (Auto) 11 % (0-12); Neutrophils # (Auto) 4.7 Thou/mm3 (1.8-7.7); Neutrophils % (Auto) 61 % (37-80); Nucleated Red Blood Cell % 0 /100 WBC (0); Platelet Count 274 Thou/mm3 (140-440); RDW Standard Deviation 39.2 fL (36.4-46.3); Red Blood Count 3.58 Miln/mm3 (4.00-5.20); Reticulocyte % (Auto) 1.3 % (0.5-1.5); Reticulocyte Absolute Auto 44.8 Biln/L (25.0-75.0); Reticulocyte Hgb Content 33.9 pg (28.0-35.0); White Blood Count 7.6 Thou/mm3 (3.6-11.0)
[2024-11-19 06:13] LABS: Alanine Aminotransferase 18 U/L (10-49); Albumin, Serum 3.5 gm/dL (3.4-4.8); Albumin/Globulin Ratio 1.2 (1.2-2.2); Alkaline Phosphatase 77 U/L (46-116); Anion Gap 9 (7-16); Aspartate Amino Transferase 16 U/L (0-34); BUN/Creatinine Ratio 9 Ratio (12-20); Bilirubin,Total 0.5 mg/dL (0.3-1.2); Blood Urea Nitrogen 15 mg/dL (9-23); Calcium 9.2 mg/dL (8.3-10.6); Calcium (Corrected) 9.6 mg/dL (8.5-10.1); Carbon Dioxide 25.3 mMol/L (20.0-31.0); Chloride 108 mMol/L (98-107); Creatinine (Component) 1.7 mg/dL (0.6-1.3); Estimated Creatinine Clearance 26.4 mL/min (>60); Glucose 91 mg/dL (74-106); Magnesium 2.9 mg/dL (1.6-2.6); Osmolality,Calculated 283 (275-295); Phosphorous 4.1 mg/dL (2.4-5.1); Sodium 142 mMol/L (136-145); Total Protein 6.5 gm/dL (5.7-8.2); eGFR 31 See Note
[2024-11-19 06:33] LABS: Ferritin 405 ng/mL (7.3-270.7); Iron 45 mcg/dL (50-170); Percent Iron Saturation 21 % (20-55); Total Iron Binding Capacity 212 mcg/dL (250-425); Unsaturated Iron Binding 167 (225-295)
[2024-11-19 09:03] LABS: Partial Thromboplastin Time 28.8 Seconds (22.0-36.0)
--- NOTE | 2024-11-19 09:22 | XR_ITS ---
Examination: CT-guided percutaneous catheter drainage pelvic abscess CT abdomen pelvis without intravenous contrast Date and time of procedure: November 19, 2024 1040 hours INDICATIONS: Abdominal pain this week, CT abdomen pelvis November 17, 2024 4.5 cm pelvic abscess adjacent to acute sigmoid diverticulitis Informed consent provided. A timeout was completed verifying correct patient, procedure, site and positioning. Technique: Axial 3 mm sections were obtained for localization of the pelvic abscess Appropriate area is marked. The patient's site was prepped and draped in sterile fashion Maximal sterile barrier technique utilized, including hand hygiene Local anesthesia was obtained with 1% lidocaine. Low dose protocols were performed. One or more of the following dose reduction techniques were used; automated exposure control, adjustment of the mA and/or KV according to patient size, use of iterative reconstruction technique. Pelvic abscess is much smaller on the current study, 2.8 cm in maximum transverse dimension Utilizing fluoroscopic guidance 5 Thai catheter placed in the abscess with aspiration of 6 cc purulent material sent to laboratory for culture and sensitivity. Estimated blood loss 0 cc Complete pathology report to follow. Impression: Much smaller pelvic abscess on this study compared with November 17, [address]-guided percutaneous catheter drainage of the pelvic abscess
[2024-11-19] MEDS: fentaNYL CIT INJ 50 mCg/ML AMP 2ML 100 MCG IVP (10:46)
--- NOTE | 2024-11-19 11:47 | ESPR_ITS ---
Documentation for date of: 11/19/24 Subjective Subjective Interval history: no acute overnight events reported. Pt is seen and examined at bedside this morning. Pt underwent IR drainage for the abscess and 6cc of purulent material was removed and sent for culture. Post drainage pt is seen again and reports significant improvement of her symptoms. Denies abdominal pain or tenderness, is able to tolerate oral diet. repeat BC show no growth at 24 hours. Vitals and labs are stable with the exception of creatinine uptrende to 1.7, although Pt has CKD due to worsenig creatinine will hold home losartan and start pt on amlodipin and resume losartan upon discharge. pt has no other complains and is eager to go home. Exam Vital Signs Temp Pulse Resp BP Pulse Ox O2 Del Method O2 Flow Rate 98.0 F 75 16 164/60 H 99 Nasal Cannula 3 11/19/24 09:55 11/19/24 11:11 11/19/24 11:11 11/19/24 11:11 11/19/24 11:11 11/19/24 11:11 11/19/24 11:11 Narrative Exam GENERAL: A&Ox3 . Awake, Not in acute distress NEURO: no focal neurological deficits HEENT: Atraumatic, Normocephalic. mucous membranes moist. Eyes open, symmetrical, & clear HEART: Normal Heart Sounds LUNGS: Clear to auscultation with no wheezing or crackles. ABDOMEN: soft, non-distended, no guarding or rebound tenderness SKIN: No Rash or ecchymoses EXTREMITIES: No edema, tenderness, able to move all 4 extremities, pedal pulses palpated Objective Labs 11/20/24 05:26 11/20/24 05:26 Labs: Laboratory Results - last 24 hr 11/19/24 04:40 WBC 7.6 RBC 3.58 L Hgb 10.5 L Hct 31.4 L MCV 88 MCH 29.3 MCHC 33.4 RDW Std Deviation 39.2 Plt Count 274 Neut % (Auto) 61 Lymph % (Auto) 24 [place] % (Auto) 11 Eos % (Auto) 2 Baso % (Auto) 1 Neut # (Auto) 4.7 Lymph # (Auto) 1.9 [place] # (Auto) 0.8 Eos # (Auto) 0.2 Baso # (Auto) 0.1 Immature Gran # (Auto) 0.07 H Absolute Nucleated RBC 0.00 Immature Gran % 1 H Nucleated RBC % 0 Retic Count (auto) 1.3 Absolute Retic 44.8 Immature Retic Fraction 13.1 Retic Hgb Content CHr 33.9 PT 11.0 INR 1.0 APTT 28.8 Sodium 142 Potassium 4.0 Chloride 108 H Carbon Dioxide 25.3 Anion Gap 9 BUN 15 Creatinine 1.7 H Estim Creat Clear Calc 26.4 L eGFR 31 L BUN/Creatinine Ratio 9 L Glucose 91 Calculated Osmolality 283 Calcium 9.2 Corrected Calcium 9.6 Phosphorus 4.1 Magnesium 2.9 H Iron 45 L TIBC 212 L Iron Saturation 21 Unsat Iron Binding 167 L Ferritin 405 H Total Bilirubin 0.5 AST 16 ALT 18 Alkaline Phosphatase 77 Total Protein 6.5 Albumin 3.5 Globulin 3.0 Albumin/Globulin Ratio 1.2 Quality Measures Quality Measures none Advance care planning discussed with:: patient Assessment & Plan Assessment Current Active Medications: Generic Name Dose Route Start Last Admin Trade Name Freq PRN Reason Stop Dose Admin Acetaminophen 650 mg 11/17/24 17:47 Acetaminophen 325 Mg Tablet PO 12/17/24 17:46 Q6H PRN Fever >99.5 Acetaminophen 1,000 mg 11/18/24 10:32 11/18/24 20:13 Acetaminophen 500 Mg Tablet PO 12/17/24 17:46 1,000 mg Q6H PRN Administration PAIN SCALE 1-3 (mild Albuterol/Ipratropium 3 ml 11/17/24 18:20 Albuterol/Ipratropium (Duoneb) Rt Malissa 3 Ml Nebu INH 12/17/24 18:19 Q6H PRN SHORTNESS OF BREATH OR WHEEZE Amlodipine Besylate 5 mg 11/19/24 10:15 Amlodipine Besylate 5 Mg Tablet PO 12/19/24 10:14 QDAY [facility] Docusate Sodium 100 mg 11/18/24 09:00 11/19/24 07:54 Docusate Sod 100 Mg Capsule PO 12/18/24 08:59 Not Given QDAY [facility] Protocol Enoxaparin Sodium 40 mg 11/18/24 09:00 11/18/24 09:20 Enoxaparin Sod Inj 40 Mg/0.4 Ml Syringe SC 12/02/24 08:59 40 mg QDAY [facility] Administration Piperacillin/Tazobactam/Dextrose 3.375 gm in 50 mls @ 12.5 mls/hr 11/17/24 22:00 11/19/24 05:20 Zosyn IV 11/24/24 21:59 12.5 mls/hr Q8HR GRANT Administration Sodium Chloride 1,000 mls @ 100 mls/hr 11/19/24 07:32 Ns IV 12/19/24 07:31 .Q10H GRANT Melatonin 3 mg 11/17/24 21:00 11/18/24 20:17 Melatonin 3 Mg Tablet PO 12/17/24 20:59 3 mg HS GRANT Administration Morphine Sulfate 2 mg 11/17/24 17:47 Morphine Sulf Inj 10 Mg/Ml Vial IVP 11/22/24 17:46 Q4H PRN PAIN SCALE 7-10 (Severe Ondansetron HCl 4 mg 11/17/24 17:47 11/18/24 20:15 Ondansetron Inj 2 Mg/Ml Inj 2 Ml IVP 12/17/24 17:46 4 mg Q6H PRN Administration NAUSEA OR VOMITING Protocol Sennosides 1 tab 11/18/24 09:00 11/19/24 07:54 Senna Tablet PO 12/18/24 08:59 Not Given QDAY GRANT Protocol Plan 74-year-old female with past medical history of CKD, diverticulosis, COPD, hypertension presented to the ED with left lower quadrant and suprapubic pain. Admitted for diverticulitis with abscess. #Acute sigmoid diverticulitis #Peridiverticular abscess, s/p drainage by IR Patient states her belly feels swollen and is having left lower quadrant and suprapubic pain that it gets worse with changing in position Findings on CT show 4.5 x 3.3 cm abscess contiguous with the upper margin of the bladder and there is marked wall thickening Blood cultures positive on aerobic bottle with GPC; likely contaminant Plan: Continue IV Zosyn Repeat blood cultures show no growth at [address]-guided abscess drainage on 11/19 and 6cc of purulent material removed and sent for culture General Surgery Dr. Soto consulted, appreciate recommendations #KAILA on CKD stage IIIb #Normocytic anemia, anemia of chronic disease #Electrolyte abnormalities Chronic medical condition, currently stable Anemia likely secondary to CKD Plan: Will hold home losartan due to worsening creatinine, will resume upon discharge Avoid nephrotoxic agents Renally dose medications when appropriate Monitor with morning labs Replete electrolytes when necessary Iron panel(Iron 45, TIBC 212, unsat iron 167)- ferritin 405, reticulocyte count pending #COPD Chronic medical condition, patient is currently stable with no acute exacerbation Plan: DuoNebs as needed #Primary Hypertension Patient on home Losartan 50 mg daily Plan: Holding home Losartan due to worsening creatinine, started pt on amlodipine 5mg during hospitalization. will consider resuming home Losartan on discharge as creatinine improves Health Maintenance: Disposition: Med telemetry, IV antibiotics Fluids: NS Diet: regular diet DVT prophylaxis: Lovenox GI prophylaxis: Not needed Code: Limited code, no intubation Assessment and plan discussed with attending physician Dr. Kathia Kim (PGY-1)- Internal medicine resident Attending Provider Attestation/Addendum ILuz Maria, , attest that I was physically present for the valdez portions of the service and evaluated the patient with the resident and I reviewed and discussed the case with the resident and agree with the resident's findings and plans of care as documented above Patient seen and evaluated this AM. She states she is feeling much improved today since her dysuria has resolved. Pending CT guiding abscess drainage today by IR. Patient reports improvement of LLQ pain. Continue with IV abx and follow up with cultures. Will hold losartan and switch to amlodipine due to KAILA. Increased rate of IV fluids.
[2024-11-19] MEDS: ONDANSETRON INJ 2 MG/ML INJ 2 ML 4 MG IVP (11:56)
[2024-11-19] MEDS: amLODIPine BESYLATE 5 MG TABLET PO (14:05)
[2024-11-19] MEDS: SODIUM CHLORIDE 0.9% 1000 ML 1,000 ML 100 ML IV ×2 (14:06→23:21)
[2024-11-19] MEDS: MELATONIN 3 MG TABLET PO (21:34)
[2024-11-19] MEDS: ACETAMINOPHEN 500 MG TABLET 1000 MG PO (21:37)
[2024-11-20] VITALS: BP 135/66; PULSE 85; RESP 18; TEMP 36.3; O2SAT 96
--- NOTE | 2024-11-20 00:21 | PC.NURSE ---
okay to stop fluids per MD Rodríguez
[2024-11-20 04:00] VITALS: BP 129/69; PULSE 68; PULSE 73; RESP 17; TEMP 36.2; O2SAT 96
[2024-11-20] MEDS: PIPER/TAZO 3.375 GM PREMIX 3.375 GM/50 ML BAG IV (05:51)
[2024-11-20 06:05] LABS: Basophils # (Auto) 0.1 Thou/mm3 (0.0-0.2); Basophils % (Auto) 1 % (0-2.5); Eosinophils # (Auto) 0.1 Thou/mm3 (0.0-0.5); Eosinophils % (Auto) 2 % (0-10); Hematocrit 33.6 % (36.0-46.0); Hemoglobin 11.2 g/dL (12.0-16.0); Immature Granulocytes % (Auto) 1 % (0-0); Immature Granulocytes Auto 0.06 Thou/mm3 (0.00-0.00); Lymphocytes # (Auto) 2.2 Thou/mm3 (1.0-4.8); Lymphocytes % (Auto) 31 % (10-50); Mean Corpuscular HGB Conc 33.3 g/dl (31.0-37.0); Mean Corpuscular Hemoglobin 29.1 pg (25.0-35.0); Mean Corpuscular Volume 87 fL (80-100); Monocytes # (Auto) 0.6 Thou/mm3 (0.0-0.8); Monocytes % (Auto) 8 % (0-12); Neutrophils # (Auto) 4.2 Thou/mm3 (1.8-7.7); Neutrophils % (Auto) 58 % (37-80); Nucleated Red Blood Cell % 0 /100 WBC (0); Platelet Count 258 Thou/mm3 (140-440); RDW Standard Deviation 39.4 fL (36.4-46.3); Red Blood Count 3.85 Miln/mm3 (4.00-5.20); White Blood Count 7.2 Thou/mm3 (3.6-11.0)
[2024-11-20 06:32] LABS: Alanine Aminotransferase 18 U/L (10-49); Albumin, Serum 3.5 gm/dL (3.4-4.8); Albumin/Globulin Ratio 1.1 (1.2-2.2); Alkaline Phosphatase 74 U/L (46-116); Anion Gap 9 (7-16); Aspartate Amino Transferase 14 U/L (0-34); BUN/Creatinine Ratio 8 Ratio (12-20); Bilirubin,Total 0.3 mg/dL (0.3-1.2); Blood Urea Nitrogen 12 mg/dL (9-23); Calcium 9.2 mg/dL (8.3-10.6); Calcium (Corrected) 9.6 mg/dL (8.5-10.1); Carbon Dioxide 24.6 mMol/L (20.0-31.0); Chloride 108 mMol/L (98-107); Creatinine (Component) 1.6 mg/dL (0.6-1.3); Globulin 3.1 gm/dL (2.3-3.5); Glucose 92 mg/dL (74-106); Osmolality,Calculated 282 (275-295); Phosphorous 3.3 mg/dL (2.4-5.1); Potassium 3.9 mMol/L (3.4-5.1); Sodium 142 mMol/L (136-145); Total Protein 6.6 gm/dL (5.7-8.2); eGFR 34 See Note
[2024-11-20 06:48] LABS: Magnesium 2.1 mg/dL (1.6-2.6)
[2024-11-20 07:36] VITALS: PULSE 88; RESP 20; O2SAT 93
[2024-11-20 08:00] VITALS: BP 168/63; PULSE 96; RESP 20; TEMP 36.2; O2SAT 95
--- NOTE | 2024-11-20 10:40 | ESPR_ITS ---
Documentation for date of: 11/20/24 Subjective Subjective Brief History: 74F HTN, COPD, CKD, chronic diverticulitis s/p diverting colostomy at [facility] (Dr Armadno) planned for reversal in December, presenting with a painful UTI. Patient reports she has been having severe pain with urination for the past 2 weeks, had been prescribed Macrobid but felt that her symptoms worsened prompting her to seek care in ER. She denies any pneumaturia or fecaluria, at the moment is not having any abdominal pain. She has mild nausea but no fever or malaise and states her colostomy has been functioning throughout this time PMH: HTN, COPD, CKD, chronic diverticulitis PSH: Appendectomy, cholecystectomy, diverting colostomy Meds: No antiplatelet or anticoagulation Allergies: Codeine causes rash Narrative: Underwent aspiration of pelvic abscess yesterday with return of 60 cc of pus, feeling well today with no pain, no nausea, tolerating regular diet with appropriate colostomy output, remaining afebrile with normal WBC Exam Vital Signs Temp Pulse Resp BP Pulse Ox O2 Del Method O2 Flow Rate 97.2 F 96 20 168/63 H 95 Room Air 3 11/20/24 08:00 11/20/24 08:00 11/20/24 08:00 11/20/24 08:00 11/20/24 08:00 11/20/24 08:00 11/19/24 11:11 Constitutional Constitutional: no acute distress Routine Respiratory Exam Respiratory: Present no resp distress Routine Abdominal Exam Abdominal: Present soft; Absent tenderness or distended Results Results: Laboratory Laboratory results: results reviewed Assessment & Plan Plan Wanted to get [id number] HTN, COPD, CKD, chronic diverticulitis s/p diverting colostomy at [facility] (Dr Armando) planned for reversal in December, presenting with a painful UTI workup consistent with sigmoid diverticulitis with associated abscess s/p percutaneous drainage 11/19, recovering well OK for dc from my standpoint Pt has planned follow up with Dr Armando colorectal surgeon at
--- NOTE | 2024-11-20 11:57 | ESDS_ITS ---
<Statement entered by Luz Maria Bae DO - 11/21/24 07:33> I, Luz Maria Bae DO, attest that I was physically present for the valdez portions of the service and evaluated the patient with the resident and I reviewed and discussed the case with the resident and agree with the resident's findings and plans of care as documented above <Statement entered by Mateo Rojas MD - 11/20/24 15:50> Patient was examined with the team including attending physician. Note reviewed, I agree with the discharge plan as documented. - Mateo Rojas MD PGY2 Disclaimer: The document may contain phonetic/typographic errors due to voice recognition software. Planned Discharge Date 11/20/24 DS: Providers Provider Date of admission: 11/17/24 17:47 Primary care physician: Katharina Arana PA-C Admitting Provider: Luz Maria Bae DO Attending Provider on Admission: Luz Maria Bae DO Consults: 11/17/24 17:17 Consult to General Surgery Stat Comment: Consulting Provider: Rebeka Soto Attending Provider on DC: Luz Maria Bae DO Discharging Provider: Brice Toledo MD Anticipated date of discharge: 11/20/24 DS: Diagnosis Problem List Completed Was Problem List Reviewed/Reconciled?: Yes Hospital Course Hospital Course Hospital course: 74-year-old female with past medical history of chronic kidney disease, diverticulosis, COPD, hypertension who presented to the ED due to left lower quadrant pain and suprapubic pain. Patient was admitted for acute sigmoid diverticulitis with peridiverticular abscess. During hospital stay interventional radiology and general surgery were consulted and had IR drainage of peridiverticular abscess. Patient was also managed with IV antibiotics, and advancing diet as tolerated. At this time patient is medically stable for discharge. Recommended to follow- up with primary care physician within 1 week of discharge. Recommended to follow-up with general surgeon Dr. Patel within 2 weeks of discharge. You have been prescribed Augmentin antibiotic for 10 more days please take this medication as prescribed, he has been instructed on the importance of maintaining a high-fiber diet. Should any symptoms recur or worsen patient is instructed to return to the ED. Problem list: #Acute sigmoid diverticulitis #Peridiverticular abscess, s/p drainage by IR #KAILA on CKD stage IIIb #Normocytic anemia, anemia of chronic disease #COPD #Primary Hypertension Case discussed with my senior Dr. Rojas and my attending Dr. Kathia Toeldo MD PGY-1 Status at Discharge Functional status at discharge: independent ambulation Overall status at discharge: patient is back to baseline Time Spent with Patient Time attestation: Total time spent providing and/or coordinating discharge services: Time spent: Greater than 30 minutes Exam Vital Signs Temp Pulse Resp BP Pulse Ox O2 Del Method O2 Flow Rate 97.2 F 96 20 168/63 H 95 Room Air 3 11/20/24 08:00 11/20/24 08:00 11/20/24 08:00 11/20/24 08:00 11/20/24 08:00 11/20/24 08:00 11/19/24 11:11 Narrative Exam Physical Exam GENERAL: NAD, AAOx3 HEENT: Moist mucosa. Eyes open, symmetrical, & clear CARDIO: Heart RRR, no obvious murmurs PULM: No noted coughing/dyspnea CTA B/L, no R/W/R GI: Abdomen soft, nondistended, pain on palpation of left lower quadrant and suprapubic area ileostomy in place SKIN/MSK/EXT: No wounds/rashes/edema/amputations, no pain on palpation. Pedal pulses present B/L NEURO: AAOx3, no focal neuro deficits, able to move all 4 extremities Discharge Plan Plan Patient Disposition: HOME (Self Care) Care Plan Goals: Follow up with primary care physician within 1 week of discharge Follow up with General surgeon Dr. Soto within 2 weeks of discharge You have been prescribed augmentin antibiotic for 10 more days, please take this medication as prescribed You have been instructed on the importance of maintaining a high fiber diet. Should any symptoms recur or worsen patient is instructed to return to the ED. Prescriptions/Referrals Prescriptions/Med Rec: New amoxicillin-pot clavulanate 875-125 mg tablet 1 tab PO BID 10 Days Qty: 20 0RF Benefiber Clear SF (dextrin) 3 gram/3.5 gram powder in packet 3 g PO QDAY 30 Days Qty: 28 0RF Rx Instructions: mix into at least 4 oz water or juice before administering Lactobacillus acidophilus 1 billion cell capsule 1,000 mmu cells PO QDAY 30 Days Qty: 30 0RF Continued losartan 50 mg Tablet 50 mg PO QDAY simvastatin 40 mg tablet 40 mg PO 1XD Patient Comments: TAKE 1 TABLET BY MOUTH EVERY DAY IN THE EVENING nitrofurantoin monohyd/m-cryst 100 mg capsule 100 mg PO 1XD Patient Comments: TAKE 1 CAPSULE BY MOUTH EVERY 12 HOURS WITH FOOD carvedilol 12.5 mg tablet 12.5 mg PO 2XD Patient Comments: TAKE 1 TABLET BY MOUTH TWICE DAILY Referrals: Katharina Arana PA-C [Primary Care Provider] - Patient/Caregiver Discharge Instructions Discharge Activity: activity as tolerated Education Materials: Diverticulosis Diverticulitis, High Fiber Diet Dc Print Language: Kuwaiti Stand Alone Forms: [employer]et[employer] Award Info., Patient Portal Info Letter Discharge Order Discharge Orders: Discharge (Routine); Ordered 11/20/24 Ordered By: Brice Toledo Quality Discharge Quality Measures VTE prophylaxis
[2024-11-20 12:00] VITALS: BP 125/63; PULSE 76; RESP 20; TEMP 36.2; O2SAT 95
== END 2024-11-20 15:12 | disposition home or self-care (01) | DRG 392 ==
LOC: SERX 17:18 → SERHOLD 18:18 → S3SX 19:53
PROVIDERS: Nurse Practitioner Primary Care; Radiology Diagnostic Radiology; Student in an Organized Health Care Education/Training Program; Admitting Provider Internal Medicine; Emergency Provider Family Medicine; PCP Physician Assistant; Visit Provider Internal Medicine
DX: K57.20 Diverticulitis of large intestine with perforation and abscess without bleeding (principal); N17.9 Acute kidney failure, unspecified; J44.9 Chronic obstructive pulmonary disease, unspecified; I12.9 Hypertensive chronic kidney disease with stage 1 through stage 4 chronic kidney disease, or unspecified chronic kidney disease; N18.32 Chronic kidney disease, stage 3b; D63.1 Anemia in chronic kidney disease; N30.91 Cystitis, unspecified with hematuria; N73.9 Female pelvic inflammatory disease, unspecified; Z79.899 Other long term (current) drug therapy; Z93.2 Ileostomy status; Z93.3 Colostomy status; Z88.5 Allergy status to narcotic agent
CPT/HCPCS: 36415; 74176; 74177; 75989; 80053; 81001; 82728; 83540; 83550; 83605; 83690; 83735; 84100; 85025; 85046; 85610; 85730; 87040; 87070; 87075; 87077; 87086; 87186; 87205; 93225; 96361; 96365; 96375; 99291; 99292; A4649; J1650; J2405; J2543; J3010; J3475; J3490; J7030; Q9967; A9270

== ENCOUNTER 2024-12-02 10:08 | Outpatient (AMB) | payer MEDICARE, MEDICAID, SELFPAY ==
--- NOTE | 2024-12-02 10:22 | GSCOFFNT_ITS ---
Vital Signs - [facility] 12/02/24 10:23 Height 1.57 m Height Method Stated Weight 67.727 kg Weight Measurement Method Standing Scale BMI 27.3 BP 140/78 H Blood Pressure Source Automatic Cuff Blood Pressure Location Left Upper Arm Position Sitting Respiration 18 Pulse 81 Pulse Source Monitor Temp 98.4 F Temp Source Temporal Artery Scan Pulse Oximetry (%) 94 L Oxygen Delivery Method Room Air Med/Allergies Allergies & Medications Allergies codeine Allergy (Intermediate, Verified 12/02/24 10:23) Rash Medication Reconciliation losartan 50 mg tablet 50 mg PO QDAY 12/30/21 [History Confirmed 12/02/24] carvedilol 12.5 mg tablet 12.5 mg PO 2XD 11/17/24 [History Confirmed 12/02/24] nitrofurantoin monohydrate/macrocrystals 100 mg capsule 100 mg PO 1XD 11/17/24 [History Confirmed 12/02/24] simvastatin 40 mg tablet 40 mg PO 1XD 11/17/24 [History Confirmed 12/02/24] Lactobacillus acidophilus 1 billion cell capsule 1,000 mmu cells PO QDAY 1 month #30 caps 11/20/24 [Rx Confirmed 12/02/24] wheat dextrin 3 gram/3.5 gram oral powder packet (Benefiber Clear Sugar Free(dextrin)) 3 g PO QDAY 1 month #28 ea 11/20/24 [Rx Confirmed 12/02/24] levofloxacin 500 mg tablet 500 mg PO QDAY #7 tabs 12/02/24 [Rx] MA Intake Visit Data Collection New Patient or Established: Established Patient (seen at [facility] within 3 years) Seen by Clinical Staff ONLY (RN/MA): No Reason for Visit:: ABSCESS CONCERN Pain Present Currently: No Pain Location: Abdomen PCP or OBGYN visit in last 3 months: Yes Hx Now: No Do You Feel Safe at Home: Yes Authorities Contacted: N/A Smoking Status Smoking Status: Never smoker Immunization / Flu Flu Vaccine in the Last 12 Months: Yes Flu Vaccine Exclusion Criteria: Already Received Past Medical History Past Medical History NEUROLOGIC: Negative Neurological Disorders CARDIAC: Positive Cardiac Disorders, Hypercholesterolemia and Hypertension; Negative Congestive Heart Failure RESPIRATORY: Positive Chronic Obstructive Pulmonary Disease (COPD), Bronchitis and Pneumonia; Negative Asthma GASTROINTESTINAL: Positive Gastrointestinal Disorders, Gall Bladder Disease, Diverticulosis and Gastroesophageal Reflux Disease; Negative Hepatitis, Colorectal Cancer or Obesity GENITOURINARY: Positive Genitourinary Disorders and Renal Disease REPRODUCTIVE: Positive Previous Pregnancies; Negative Breast Cancer, Pelvic Inflammatory Disease or Testicular Cancer MUSCULOSKELETAL: Negative Bone Cancer ENDOCRINE: Negative Endocrine Disorders, Diabetes Mellitus Type 1 or Diabetes Mellitus Type 2 HEMATOLOGIC: Negative Blood Disorders or Sickle Cell Disease PSYCHO/SOCIAL: Positive Depression and Anxiety OTHER HISTORY: Positive Hospitalization; Negative Down Syndrome, Developmental Delay, Falls, Blood Transfusions, Anesthesia Reactions, MRSA, VRSA, Vancomycin-Resistant Enterococci, Human Immunodeficiency Virus (HIV), Chicken Pox, Measles, Mumps, Rubella ([place] Measles), Pertussis, Clostridium Difficile, Cancer, Breast Cancer, Cervical Cancer, Colorectal Cancer, Lung Cancer, Ovarian Cancer or Testicular Cancer Family History FAMILY HISTORY: Positive Family Psychiatric Problems, Family Respiratory Disorders, Family Cardiac Disorders and Family Surgery; Negative Family Gastrointestinal Problems, Family Cancer or Family Anesthesia Reaction Surgical History SURGICAL: Positive Abdominal Surgery (ileostomy) and Gastrostomy Social History SMOKING STATUS: Smoking status: Never smoker ALCOHOL: Alcohol Intake: Never HOUSING: Housing: House LIVES WITH: Lives With: Family HPI HPI Narrative 74F with HTN, COPD, CKD, chronic diverticulitis s/p diverting colostomy at [facility] (Dr Armando) planned for reversal in December, hospitalized in October for findings of diverticular abscess and possible colovesicular fistula s/p percutaneous drainage 11/19 here for follow up. Pt was discharged with augmentin which she completed but for the last few days she has noted swelling and erythema at the site of percutaneous drainage. She denies pain, fever and malaise, and is unsure whether she has pneumaturia but at the moment she is not having dysuria ROS Review of Systems Systems Reviewed: All systems reviewed, normal except as documented Objective/Exam General General Appearance: alert, cooperative and well groomed Resp Respiratory exam: Absent respiratory distress Abdominal Abdominal exam: Present soft, incision (LLQ drainage site with erythema approx 2cm in transverse dimension, no fluctuance) and other (colostomy with brown stool in appliance); Absent distention or tenderness Assessment & Plan Diagnosis / Problem List (1) Cellulitis of left abdominal wall: Status: Acute Assessment & Plan: 74F with HTN, COPD, CKD, chronic diverticulitis s/p diverting colostomy at [facility] (Dr Armando) planned for reversal in December, hospitalized in October for findings of diverticular abscess and possible colovesicular fistula s/p percutaneous drainage 11/19, now with signs of cellulitis at the drainage site. Pt overall appears well, we discussed the possibility of going to ER for CT but as she is not having any pain she prefers not to go this route. I encouraged her to follow up with Dr Armando as soon as possible, because her sigmoidectomy is scheduled for December but she may need repeat imaging before this. All questions were answered and pt expressed understanding Advanced Care Planning Advance care planning discussed with:: patient Office Procedures GNS Level of Care Nursing/Assessment Patient Status: Established Patient Nursing Assessment/Reassesment: Medication Reconciliation, Update PMH in EMR and Vital Signs Coordination of Care: Complex Care and Chronic Disease 1-5, Consent,records obtained, informed consent, Education Simp Pt/Fam, Results/Orders obtained and Staff clarify orders Established Patient Charge Established Patient Point Assignment: 90 Established Patient Point Charge: EP Level 3 (80-115) Patient Portal Questionaires Social History Living Situation History Housing: House Tobacco History Smoking Status: Never smoker Alcohol History Alcohol Intake: Never Domestic Abuse History Do You Feel Safe at Home: Yes Review of Systems Report any current symptoms Only answer those that you have currently: Past Medical History Past Medical History Have you ever been diagnosed with any of the following: Cardiology Problems Hypercholesterolemia: Yes Congestive Heart Failure: No Hypertension: Yes Respiratory Problems Chronic Obstructive Pulmonary Disease (COPD): Yes Asthma: No Bronchitis: Yes Pneumonia: Yes Stomache/Intestinal Problems Hepatitis: No Gall Bladder Disease: Yes Diverticulosis: Yes Colorectal Cancer: No Gastroesophageal Reflux Disease: Yes Obesity: No Genital/Urinary Problems Renal Disease: Yes Reproductive Problems Breast Cancer: No Pelvic Inflammatory Disease: No Previous Pregnancies: Yes Musculoskeletal Problems Bone Cancer: No Endocrine Problems Diabetes Mellitus Type 1: No Diabetes Mellitus Type 2: No Blood Problems Sickle Cell Disease: No Psychologic Problems Depression: Yes Anxiety: Yes Other Problems Hospitalization: Yes Down Syndrome: No Developmental Delay: No Falls: No Blood Transfusions: No Anesthesia Reactions: No MRSA: No VRSA: No Vancomycin-Resistant Enterococci: No Human Immunodeficiency Virus (HIV): No Chicken Pox: No Measles: No Mumps: No Rubella ([place] Measles): No Pertussis: No Clostridium Difficile: No Cancer: No Cervical Cancer: No Lung Cancer: No Ovarian Cancer: No
[2024-12-02 10:23] VITALS: BP 140/78; PULSE 81; RESP 18; TEMP 36.9; O2SAT 94; BMI 27.3
== END 2024-12-02 10:40 | disposition home or self-care (01) ==
LOC: HODSRG 10:08
PROVIDERS: PCP Physician Assistant; Referring Provider Physician Assistant; Supervising Provider Surgery; Visit Provider Surgery
DX: L03.311 Cellulitis of abdominal wall (principal)
CPT/HCPCS: 99213; G0463

== ENCOUNTER 2025-04-01 13:45 | Inpatient (IN) | payer MEDICARE, SELFPAY ==
[2025-04-01] VITALS (8 sets, daily range): BP systolic 109–141; BP diastolic 59–76; PULSE 97–130; RESP 15–97; TEMP 36.6–37.2; O2SAT 92–100; BMI 27.9; BMI 29.2
--- NOTE | 2025-04-01 14:01 | PD.EDRME ---
Rapid Medical Screening Exam RME Arrival date/time: 04/01/25 13:45 74-year-old female with a history of hypertension, hyperlipidemia, diverticulitis, pelvic abscess, presents to the emergency room with a chief complaint of diffuse left lower abdominal pain x 2 days I have greeted and performed a focused initial assessment of this patient. A comprehensive ED assessment and evaluation of the patient, analysis of all test results, and completion of the medical decision making process will be conducted by additional ED providers. Chief Complaint: Abdominal Pain Time Seen by Provider: 04/01/25 13:56 Vital signs: Vital Signs Temperature 98.4 F 04/01/25 13:52 Pulse Rate 130 H 04/01/25 13:52 Respiratory Rate 20 04/01/25 13:52 Blood Pressure 109/76 04/01/25 13:52 Pulse Oximetry (%) 95 04/01/25 13:52 Oxygen Delivery Method Room Air 04/01/25 13:52 Vital signs reviewed by provider: Yes
--- NOTE | 2025-04-01 14:22 | PC.NURSE ---
Patient came to the ED for c/o left sided lower abdominal pain where she stated that there is an abscess there that causes alot of pain. reported there is burning sensation when she urinates, denies N/V/D. Colostomy bag in left abdomen from diverticulitis. Pt stated the abscess was drained before there wasnt enough fluid to remove. Dr. Barrientos at bedside and is going to order some pain medication.
[2025-04-01 14:25] LABS: Basophils # (Auto) 0.1 Thou/mm3 (0.0-0.2); Basophils % (Auto) 0 % (0-2.5); Eosinophils # (Auto) 0.0 Thou/mm3 (0.0-0.5); Eosinophils % (Auto) 0 % (0-10); Hematocrit 39.2 % (36.0-46.0); Hemoglobin 13.4 g/dL (12.0-16.0); Immature Granulocytes Auto 0.15 Thou/mm3 (0.00-0.00); Lymphocytes # (Auto) 3.3 Thou/mm3 (1.0-4.8); Lymphocytes % (Auto) 16 % (10-50); Mean Corpuscular HGB Conc 34.2 g/dl (31.0-37.0); Mean Corpuscular Hemoglobin 29.4 pg (25.0-35.0); Mean Corpuscular Volume 86 fL (80-100); Monocytes # (Auto) 2.3 Thou/mm3 (0.0-0.8); Monocytes % (Auto) 11 % (0-12); Neutrophils # (Auto) 14.7 Thou/mm3 (1.8-7.7); Neutrophils % (Auto) 72 % (37-80); Nucleated Red Blood Cell # 0.00 Thou/mm3 (0.00-0.00); Nucleated Red Blood Cell % 0 /100 WBC (0); Platelet Count 371 Thou/mm3 (140-440); RDW Standard Deviation 39.9 fL (36.4-46.3); Red Blood Count 4.56 Miln/mm3 (4.00-5.20); White Blood Count 20.5 Thou/mm3 (3.6-11.0)
--- NOTE | 2025-04-01 14:27 | PD.EDABDPN ---
ED Abdominal Pain RME/HPI General Chief Complaint: Abdominal Pain Stated complaint: LLQ ABD PAIN Time seen by provider: 04/01/25 13:56 Arrival date/time: 04/01/25 13:45 RME / HPI RME / HPI narrative: 04/01/25 13:45 74-year-old female with a history of hypertension, hyperlipidemia, diverticulitis, pelvic abscess, presents to the emergency room with a chief complaint of diffuse left lower abdominal pain x 2 days I have greeted and performed a focused initial assessment of this patient. A comprehensive ED assessment and evaluation of the patient, analysis of all test results, and completion of the medical decision making process will be conducted by additional ED providers. DR. BARRIENTOS MAIN ED EVALUATION 74 year old female with history of hypertension, COPD, CKD, diverticulitis s/p diverting colostomy performed 09/2023 at [facility] by Dr. Armando and hospitalized here 11/17-11/20/2024 for diverticular abscess s/p percutaneous drainage by surgeon Dr. Soto on 11/19/2024 presents to the ED for evaluation of left lower abdominal pain beginning 2 days ago. Described as aching in sensation, rating as moderate. Accompanied by subjective fevers, chills, and dysuria. Reportedly had experienced similar symptoms when diagnosed with the diverticular abscess back in October and concerned she may have an abscess. Denies diarrhea, constipation, hematuria. Related Data Home Medications ?Medication ?Instructions ?Recorded ?Confirmed losartan 50 mg tablet 50 mg PO QDAY 12/30/21 12/02/24 carvedilol 12.5 mg tablet 12.5 mg PO 2XD 11/17/24 12/02/24 nitrofurantoin 100 mg PO 1XD 11/17/24 12/02/24 monohydrate/macrocrystals 100 mg capsule simvastatin 40 mg tablet 40 mg PO 1XD 11/17/24 12/02/24 Previous Rx's ?Medication ?Instructions ?Recorded levofloxacin 500 mg tablet 500 mg PO QDAY #7 tabs 12/02/24 Allergies Allergy/AdvReac Type Severity Reaction Status Date / Time codeine Allergy Intermediate Rash Verified 04/01/25 13:48 Review of Systems Review of Systems Systems Reviewed: All systems reviewed, normal except as documented Past Medical History Past Medical History CARDIAC: Positive Hypercholesterolemia and Hypertension RESPIRATORY: Positive Chronic Obstructive Pulmonary Disease (COPD), Asthma (copd), Bronchitis and Pneumonia GASTROINTESTINAL: Positive Gastrointestinal Disorders, Gall Bladder Disease and Diverticulosis GENITOURINARY: Positive Genitourinary Disorders and Renal Disease (ckd) REPRODUCTIVE: Positive Previous Pregnancies PSYCHO/SOCIAL: Positive Depression and Anxiety OTHER HISTORY: Positive Hospitalization Family History FAMILY HISTORY: Positive Family Psychiatric Problems, Family Respiratory Disorders, Family Cardiac Disorders and Family Surgery Surgical History SURGICAL: Positive Abdominal Surgery and Gastrostomy Social History SMOKING STATUS: Never smoker SUBSTANCE USE: does not use ED Exam Narrative Physical exam: GENERAL APPEARANCE: alert and oriented x 4, well-developed, well-nourished HEENT: Normocephalic, atraumatic; pupils equal, round, reactive to light; EOMI; mucous membranes pink, moist; oropharynx clear NECK: Supple LUNGS: CTABL; no wheezes, no rales, no rhonchi HEART: Regular rate, regular rhythm; normal S1, S2; no murmurs ABDOMEN: non distended; normal BS; colostomy bag noted, soft, LLQ tenderness with guarding, no rebound; no masses, no organomegaly, no hernia BACK: no CVA tenderness EXTREMITIES: atraumatic; no edema NEUROLOGIC: awake; alert and oriented x4; cranial nerves II-XII grossly intact; no focal sensory or motor deficits PSYCHIATRIC: appropriate mood and affect SKIN: warm, dry, normal color; no rashes Course Course Course Narrative: 1750p: I spoke with hospitalist team C for admission. Quality Measures none Orders Category Date Time Status CT Screening NOW Care 04/01/25 14:[address] abdomen pelvis wo con Stat Exams 04/01/25 15:37 Completed CBC Stat Lab 04/01/25 14:19 Completed CMP [Comprehensive Metabolic Panel] Stat Lab 04/01/25 14:19 Completed Lactate (Lactic Acid) Stat Lab 04/01/25 14:44 Completed Lipase Stat Lab 04/01/25 14:19 Completed UA [Urinalysis] Stat Lab 04/01/25 14:00 Ordered Urine Culture Stat Lab 04/01/25 14:00 Ordered CIPROFLOXACIN/D5w 400 MG IVPB [Cipro Ivpb] Med 04/01/25 17:48 Active 400 mg in 200 ml IV X1 Ketorolac Inj [Toradol Inj] Med 04/01/25 14:00 Discontinued 30 mg IVP X1 ONE Morphine* Inj Med 04/01/25 14:26 Discontinued 4 mg IVP X1 ONE Ondansetron Inj [Zofran Inj] Med 04/01/25 14:26 Discontinued 4 mg IVP X1 ONE Ondansetron Odt [Zofran Odt] Med 04/01/25 14:00 Discontinued 4 mg PO X1 ONE Sodium Chloride 0.9% 1000 ml [Ns] 1,000 ml Med 04/01/25 15:50 Discontinued IV 999 mls/hr metroNIDAZOLE/NS 500 MG IVPB [Flagyl 500 mg IV] Med 04/01/25 17:48 Active 500 mg in 100 ml IV X1 Vital Signs Vital signs: Vital Signs Temperature 98.4 F 04/01/25 13:52 Pulse Rate 130 H 04/01/25 13:52 Respiratory Rate 20 04/01/25 13:52 Blood Pressure 109/76 04/01/25 13:52 Pulse Oximetry (%) 95 04/01/25 13:52 Oxygen Delivery Method Room Air 04/01/25 13:52 Pulse ox is 95% on room air which is adequate. Abdominal Pain MDM MDM Narrative MDM Narrative:: Savannah Murphy am scribing for and in the presence of Dr. Barrientos. Patient data External records reviewed:: [facility] previous records Clinical information provided by:: patient Social determinants that could affect healthcare access:: none Patient has the following chronic illnesses:: hypertension, COPD, CKD, diverticulitis s/p diverting colostomy performed 09/2023 at [facility] by Dr. Armando and hospitalized here 11/17-11/20/2024 for diverticular abscess s/p percutaneous drainage by surgeon Dr. Soto on 11/19/2024 How is presenting disease/condition affected by chronic disease/condition?: exacerbated by Evaluation data The following diagnostics were reviewed and interpreted by me:: lab results and radiology exam(s) Lab and/or radiology exams considered but not ordered:: None Interpretation Summary: Ordering Physician: Sammie Barrientos MD Date of Service: 04/01/25 Procedure(s): CT abdomen pelvis wo con Accession Number(s): [id number] cc: Katharina Arana PA-C; Manjinder Palacios MD; Sammie Barrientos MD~ Examination: CT abdomen and pelvis without contrast. Coronal 3-D reconstructions. Sagittal 2-D reconstructions. Date and time of exam: April 01, 2025, 1608 hours, comparison November 17, 2024 INDICATIONS: Onset lower abdominal pain today, history acute sigmoid diverticulitis and pelvic abscess on CT study November 17, 2024 CTDI: vol (mGy): 10 DLP: (mGycm): 559 Technique: Axial images of the abdomen have been obtained, 3 mm slice thickness Intravenous contrast material has not been administered. Low dose protocols were performed. One or more of the following dose reduction techniques were used; automated exposure control, adjustment of the mA and/or KV according to patient size, use of iterative reconstruction technique. Findings: Liver is mildly irregular in contour, no focal liver or splenic lesions Contracted gallbladder with gallstones No pancreatic or adrenal mass Soft calcifications in the left kidney, no hydronephrosis or ureteral calculi Left colostomy, no bowel obstruction Colonic diverticulosis Mild acute diverticulitis, axial image 158, significant diffuse wall thickening of the sigmoid colon diverticula and fluid adjacent to the diverticula Mass below the sigmoid:, Above the urinary bladder, axial image 179 which may represent a thick-walled abscess, 6.2 x 6.5 cm, which may communicate with the urinary bladder, marked urinary bladder wall thickening Moderate osteopenia IMPRESSION: Acute sigmoid diverticulitis Again noted thick walled probable abscess below the sigmoid colon, 6.2 x 6.5 cm which appears to communicate with the urinary bladder Repeating the CT examination of the abdomen pelvis with intravenous contrast would be helpful Dictated By: Manjinder Palacios MD Signed By: <Electronically signed by Manjinder Palacios MD in [place]> 04/01/25 1655 Medications / Prescriptions Medications or Prescriptions considered but not ordered:: None Medication administrations:: Medication Administration History Ciprofloxacin/Dextrose (Cipro Ivpb) 400 mg in 200 mls @ 200 mls/hr IV X1 ONE Stop: 04/01/25 18:47 Metronidazole (Flagyl 500 Mg Iv) 500 mg in 100 mls @ 200 mls/hr IV X1 ONE Stop: 04/01/25 18:17 Discontinued Medications Sodium Chloride (Ns) 1,000 mls @ 999 mls/hr IV .Q1H1M ONE Stop: 04/01/25 16:50 Last Admin: 04/01/25 16:17 Dose: 999 mls/hr Documented By: VL Ketorolac Tromethamine (Ketorolac Inj 30 Mg/Ml Vial) 30 mg IVP X1 ONE Stop: 04/01/25 14:01 Last Admin: 04/01/25 14:40 Dose: Not Given Documented By: PRISCILA Non-Admin Reason: Cancelled by Provider Morphine Sulfate (Morphine Sulf Inj 4 Mg/Ml Vial) 4 mg IVP X1 ONE Stop: 04/01/25 14:27 Last Admin: 04/01/25 14:41 Dose: 4 mg Documented By: WL Ondansetron HCl (Ondansetron Odt 4 Mg Tabrap) 4 mg PO X1 ONE; Protocol Stop: 04/01/25 14:01 Last Admin: 04/01/25 14:40 Dose: Not Given Documented By: PRISCILA Non-Admin Reason: Cancelled by Provider Ondansetron HCl (Ondansetron Inj 2 Mg/Ml Inj 2 Ml) 4 mg IVP X1 ONE Stop: 04/01/25 14:27 Last Admin: 04/01/25 14:40 Dose: 4 mg Documented By: PRISCILA See above Consultations Consultation(s) initiated? (list below): Yes Consultation #1 (Physician, Specialty, Details): see course Diagnosis Differential diagnosis abdominal pain: abdominal pain, calculus of kidney, diverticulitis and other (abscess ) Most likely diagnosis given after review of the tests above:: acute diverticulitis acute kidney injury Admission Indicated Admission indicated?: indicated Admission Request Was there a request for admission?: Yes Admission Attestation Admission request attestation: Discussed case with [] from Hospitalist service regarding admission. Discussed patients ED course, exam findings, labs, and radiology results. The Hospitalist [agrees,declines] to accept the patient for admission. Disposition Plan Disposition Plan: Admit Discharge Plan Plan Patient Disposition: Admit Acute Care w/in Hospital Prescriptions/Referrals Prescriptions/Med Rec: No Action levofloxacin 500 mg tablet 500 mg PO QDAY Qty: 7 0RF losartan 50 mg Tablet 50 mg PO QDAY simvastatin 40 mg tablet 40 mg PO 1XD Patient Comments: TAKE 1 TABLET BY MOUTH EVERY DAY IN THE EVENING nitrofurantoin monohyd/m-cryst 100 mg capsule 100 mg PO 1XD Patient Comments: TAKE 1 CAPSULE BY MOUTH EVERY 12 HOURS WITH FOOD carvedilol 12.5 mg tablet 12.5 mg PO 2XD Patient Comments: TAKE 1 TABLET BY MOUTH TWICE DAILY Referrals: Katharina Arana PA-C [Primary Care Provider] - In 1 week Problem List Clinical Impression: Acute diverticulitis, Acute kidney injury Patient/Caregiver Discharge Instructions Print Language: Namibian Stand Alone Forms: Josette Award Info., Patient Portal Info Letter
[2025-04-01] MEDS: ONDANSETRON INJ 2 MG/ML INJ 2 ML 4 MG IVP (14:40)
[2025-04-01] MEDS: MORPHINE SULF INJ 4 MG/ML VIAL IVP (14:41)
[2025-04-01 14:42] LABS: Alanine Aminotransferase 44 U/L (10-49); Albumin, Serum 4.3 gm/dL (3.4-4.8); Albumin/Globulin Ratio 1.2 (1.2-2.2); Alkaline Phosphatase 113 U/L (46-116); Anion Gap 13 (7-16); Aspartate Amino Transferase 30 U/L (0-34); BUN/Creatinine Ratio 16 Ratio (12-20); Bilirubin,Total 0.8 mg/dL (0.3-1.2); Blood Urea Nitrogen 33 mg/dL (9-23); Calcium 9.5 mg/dL (8.3-10.6); Calcium (Corrected) 9.5 mg/dL (8.5-10.1); Carbon Dioxide 19.2 mMol/L (20.0-31.0); Chloride 106 mMol/L (98-107); Creatinine (Component) 2.1 mg/dL (0.6-1.3); Estimated Creatinine Clearance 20.1 mL/min (>60); Globulin 3.5 gm/dL (2.3-3.5); Glucose 136 mg/dL (74-106); Lipase 33 U/L (12-53); Osmolality,Calculated 284 (275-295); Potassium 3.6 mMol/L (3.4-5.1); Sodium 138 mMol/L (136-145); Total Protein 7.8 gm/dL (5.7-8.2); eGFR 24 See Note
[2025-04-01 14:57] LABS: Lactate (Lactic Acid) 1.4 mMol/L (0.4-2.0)
--- NOTE | 2025-04-01 15:37 | XR_ITS ---
Examination: CT abdomen and pelvis without contrast. Coronal 3-D reconstructions. Sagittal 2-D reconstructions. Date and time of exam: April 01, 2025, 1608 hours, comparison November 17, 2024 INDICATIONS: Onset lower abdominal pain today, history acute sigmoid diverticulitis and pelvic abscess on CT study November 17, 2024 CTDI: vol (mGy): 10 DLP: (mGycm): 559 Technique: Axial images of the abdomen have been obtained, 3 mm slice thickness Intravenous contrast material has not been administered. Low dose protocols were performed. One or more of the following dose reduction techniques were used; automated exposure control, adjustment of the mA and/or KV according to patient size, use of iterative reconstruction technique. Findings: Liver is mildly irregular in contour, no focal liver or splenic lesions Contracted gallbladder with gallstones No pancreatic or adrenal mass Soft calcifications in the left kidney, no hydronephrosis or ureteral calculi Left colostomy, no bowel obstruction Colonic diverticulosis Mild acute diverticulitis, axial image 158, significant diffuse wall thickening of the sigmoid colon diverticula and fluid adjacent to the diverticula Mass below the sigmoid:, Above the urinary bladder, axial image 179 which may represent a thick-walled abscess, 6.2 x 6.5 cm, which may communicate with the urinary bladder, marked urinary bladder wall thickening Moderate osteopenia IMPRESSION: Acute sigmoid diverticulitis Again noted thick walled probable abscess below the sigmoid colon, 6.2 x 6.5 cm which appears to communicate with the urinary bladder Repeating the CT examination of the abdomen pelvis with intravenous contrast would be helpful
[2025-04-01] MEDS: SODIUM CHLORIDE 0.9% 1000 ML 1,000 ML 999 ML IV (16:17)
--- NOTE | 2025-04-01 18:42 | ESHP_ITS ---
<Statement entered by Kin Drummond MD - 04/01/25 20:16> 74 year old female with history of hypertension, COPD, CKD, diverticulitis s/p diverting colostomy was admitted to the hospital due to acute diverticulitis with asbcess and possible fistula. Patient has been seeing specialist in [place], but has been unable to get reversal of colostomy due to scheduling issues or complications. Patient was seen in our hospital on 10/2024 and she had an abscess drained. Spoke with general surgery who was agreable to admission at this time as if patient does have fistula can be treated after acute diverticulitis is managed. No fevers on presentation and only WBC elevation, otherwise stable vitals. Patient will be placed on Cipro and Flagyl for Intrabdominal infection and will also be placed NPO in the possibility of surgical procedure vs percutaneous drainage. IV fluids given KAILA on CKD. No other complaints at this time. In summary: #Acute Diverticulitis with possible abscess and fistula--> Flagyl/Cipro and IVF, General Surgery consulted, NPO after midnight #KAILA on CKD--> IVF, will monitor kidney function General: A/O x3, no acute distress, well-nourished, well-developed Eyes: PERRL, EOMI. Anicteric, vision grossly intact. Ears: No ear pain, no ear discharge, Hearing grossly intact. Nose: No nasal discharge. Mouth/Throat: Moist mucous membranes, no redness, no lesions. Neck: Neck supple, non-tender, no cervical lymphadenopathy. Lungs: Clear LEAH to auscultation and percussion, No accessory muscle use. Cardio: Normal S1/S2, regular rhythm, no murmurs, no JVD or carotid bruits. Abdomen: Soft, but tender in LLQ, colostomy bag w/o drainage or blood, no palpable masses, peristalsis present, no guarding or rebound. Extremities: Symmetrical, no significant deformities, no peripheral edema , non-tender, peripheral pulses presents. Skin: No rashes, no lesions, warm to touch. Neuro: No focal neurological deficits. motor and sensory intact Psych: Cooperative, appropriate mood and effect. I have reviewed the note and agree with the medical student's assessment & plan with exceptions as above. I have personally reviewed labs, imaging, home meds/prior records, examined the patient, formulated and discussed management plan with my attending Kin Drummond PGY2 Disclaimer: Even though this this note was dictated by speech recognition and even though it was carefully revised there may still be minor errors in vamp throater due to voice recognition software. Documentation for date of: 04/01/25 HPI History of Present Illness History of present illness: Ms Maggie Blood is a 74 year old female with history of hypertension, COPD, CKD, diverticulitis s/p diverting colostomy performed 09/2023 at [facility] by Dr. Armando and hospitalized here 11/17-11/20/2024 for diverticular abscess s/p percutaneous drainage by surgeon Dr. Soto on 11/19/2024 presents to the ED for evaluation of intractable LLQ abdominal pain x2 days. Pt describes it as aching, 8-9/10, non-radiating. Provoked by urination. She describes associated fevers, nausea/vomiting. Denies dysuria, SOB, chest pain, palpitations, diarrhea/constipation. She reports multiple previous episodes coinciding with diverticulitis/abscess flare most recently in October. Per her history she was supposed to have colostomy reversed and sigmoidectomy performed by Dr. Armando in December, however she had to reschedule. When she arrived later in December she was hypotensive and unable to complete the surgery. At this point she was informed Dr. Armando wanted to consult Dr. Higgins Urology (most likely d/t abscess communicating with bladder), but Dr. Higgins is not free for consult until June 2025. ED course: Received 1L saline bolus, Morphine 4mg IV, Zofran 4mg IV. CT Ab/Pelv showed acute sigmoid diverticulitis and thick-walled probable abscess below sigmoid colon 6.2x6.5cm which appears to communicate with bladder. Notably previous CT from previous visit for percutaneous drainage showed the same abscess ~3cm in diameter at that time. She was admitted to telemetry for management of acute diverticulitis w/ probable abscess, GI consulted, plan to pursue drainage tomorrow. She requests DNR, declares her MDM as her son Giovanny Blood [phone] . PMH: As above PSH: Diverting colostomy 10/2024, she also reports cholecystectomy and appendectomy FH: Mother of stroke age 87, father of pancreatic cancer age 55 SH: Never smoker, remote social drinking history, lives in a house w/ son Meds: Losartan, Carvedilol, Simvastatin Allergies: Codeine (causes rash) ROS negative except as noted above. Exam Vital Signs Temp Pulse Resp BP Pulse Ox O2 Del Method 98.1 F 100 17 141/60 H 95 Room Air 04/01/25 18:05 04/01/25 18:05 04/01/25 18:05 04/01/25 18:05 04/01/25 18:05 04/01/25 18:05 Narrative Exam General: AOx3, no acute distress, able to speak full sentences HEENT: NC/AT, mucous membranes moist, bilateral sclera anicteric Cardiovascular: regular rate and rhythm, S1/S2 present, no murmurs appreciated Pulmonary: clear to auscultation bilaterally, no rales/rhonchi/wheezes Abdominal: LLQ rigidity, tenderness to palpation, prominent scar from previous drainage. Colostomy bag in place, empty, secure/dry/nonerythematous. Non- distended, normal bowel sounds present. Musculoskeletal: normal ROM Skin: warm and dry, intact, no rashes Neuro: CN II-XII intact, no focal deficits Results: Labs 04/01/25 14:19 04/01/25 14:19 Labs: Short CBC 04/01/25 Range/Units 14:19 WBC 20.5 H (3.6-11.0) Thou/mm3 Hgb 13.4 (12.0-16.0) g/dL Hct 39.2 (36.0-46.0) % Plt Count 371 (140-440) Thou/mm3 BMP 04/01/25 14:19 Sodium 138 Potassium 3.6 Chloride 106 Carbon Dioxide 19.2 L BUN 33 H Creatinine 2.1 H Glucose 136 H Calcium 9.5 Liver Function 04/01/25 Range/Units 14:19 Total Bilirubin 0.8 (0.3-1.2) mg/dL AST 30 (0-34) U/L ALT 44 (10-49) U/L Alkaline Phosphatase 113 (46-116) U/L Albumin 4.3 (3.4-4.8) gm/dL Quality Measures Quality Measures none Advance care planning discussed with:: patient Medications Home Medications and Allergies Home Medications ?Medication ?Instructions ?Recorded ?Confirmed ?Type losartan 50 mg tablet 50 mg PO QDAY 12/30/2112/02 History carvedilol 12.5 mg tablet 12.5 mg PO 2XD 11/17/2403/20 History nitrofurantoin 100 mg PO 1XD 11/17/2412/02 History monohydrate/macrocrystals 100 mg capsule simvastatin 40 mg tablet 40 mg PO 1XD 11/17/24 History Allergies Allergy/AdvReac Type Severity Reaction Status Date / Time codeine Allergy Intermediate Rash Verified 04/01/25 13:48 Visit Medications Acetaminophen (Acetaminophen 325 Mg Tablet) 650 mg PO Q6H PRN PRN Reason: Fever >101.5 Stop: 05/01/25 18:26 Hydromorphone HCl (Hydromorphone Inj 2 Mg/Ml Vial) 0.5 mg IVP Q2H PRN PRN Reason: PAIN SCALE 4-10(Mod-Sev Stop: 04/06/25 18:26 Ciprofloxacin/Dextrose (Cipro Ivpb) 400 mg in 200 mls @ 200 mls/hr IV X1 ONE Stop: 04/01/25 18:47 Sodium Chloride (Ns) 1,000 mls @ 75 mls/hr IV .[id number] GRANT Stop: 04/02/25 07:49 Ciprofloxacin/Dextrose (Cipro Ivpb) 400 mg in 200 mls @ 200 mls/hr IV Q12HR GRANT Stop: 04/08/25 18:30 Metronidazole (Flagyl 500 Mg Iv) 500 mg in 100 mls @ 200 mls/hr IV Q8HR GRANT Stop: 04/08/25 18:31 Ondansetron HCl (Ondansetron Inj 2 Mg/Ml Inj 2 Ml) 4 mg IVP Q6H PRN; Protocol PRN Reason: NAUSEA OR VOMITING Stop: 05/01/25 18:26 Discontinued Medications Sodium Chloride (Ns) 1,000 mls @ 999 mls/hr IV .Q1H1M ONE Stop: 04/01/25 16:50 Last Admin: 04/01/25 16:17 Dose: 999 mls/hr Metronidazole (Flagyl 500 Mg Iv) 500 mg in 100 mls @ 200 mls/hr IV X1 ONE Stop: 04/01/25 18:17 Ketorolac Tromethamine (Ketorolac Inj 30 Mg/Ml Vial) 30 mg IVP X1 ONE Stop: 04/01/25 14:01 Last Admin: 04/01/25 14:40 Dose: Not Given Morphine Sulfate (Morphine Sulf Inj 4 Mg/Ml Vial) 4 mg IVP X1 ONE Stop: 04/01/25 14:27 Last Admin: 04/01/25 14:41 Dose: 4 mg Ondansetron HCl (Ondansetron Odt 4 Mg Tabrap) 4 mg PO X1 ONE; Protocol Stop: 04/01/25 14:01 Last Admin: 04/01/25 14:40 Dose: Not Given Ondansetron HCl (Ondansetron Inj 2 Mg/Ml Inj 2 Ml) 4 mg IVP X1 ONE Stop: 04/01/25 14:27 Last Admin: 04/01/25 14:40 Dose: 4 mg Assessment & Plan Plan 74 year old female with history of hypertension, COPD, CKD, diverticulitis s/p diverting colostomy performed 09/2023 at [facility] by Dr. Armando and hospitalized here 11/17-11/20/2024 for diverticular abscess s/p percutaneous drainage by surgeon Dr. Soto on 11/19/2024 presents to the ED for evaluation of intractable LLQ abdominal pain x2 days. Abscess + diverticulitis found on ED CT Ab/Pelv, admitted for planned drainage. #Acute Diverticulitis #Colonic Abscess #Leukocytosis Pt presents with long history of recurrent sigmoid diverticulitis, plan for surgical intervention following urology consultation in June. Most recently pt reports x2 days intractable LLQ Abdominal pain, fever, n/v, and poor oral intake that she characterizes as similar to previous diverticulitis flare-ups. CT Ab/Pelvis 04/01 showed acute sigmoid diverticulitis and thick-walled probable abscess below sigmoid colon 6.2x6.5cm which appears to communicate with bladder. Notably CT from previous visit for percutaneous drainage showed the same abscess ~3cm in diameter at that time. GI consulted with plan for intervention tomorrow. WBCs 20.5 in ED. - Admitted telemetry - s/p 1L NaCl, started 75ml/hr maintenance dose - Started IV Flagyl 500mg - Place NPO after midnight #KAILA Creatinine 2.1, BUN 31 in ED. Pt has CKD and notes previous BUNs in range of 20s-30s, unaware of baseline creatinine -Fluids as above -Monitor CMP in AM #COPD Not in exacerbation currently. Pt is saturating well on room air, not currently endorsing respiratory symptoms. Lungs CTA b/l. -Monitor Disposition: Patient admitted to telemetry. Diet: NPO GI prophylaxis: none DVT prophylaxis: SCDs Code: DNR Attending Provider Attestation/Addendum After examination of the patient and review of the clinical data I feel that this patient needs admission to the hospital for further treatment/evaluation. I have discussed and was present for the essential components of the history, physical examination, diagnosis, and treatment plan with the resident. I agree with the patient's care as documented by the resident and amended herein by me. Huy Armenta DO. Although this document has been carefully reviewed, there may still be some phonetic and other typographical errors. These errors are purely grammatical due to imperfections in the software program and should not be construed in any way to compromise the substance of the patient's medical care during this visit. Patient seen and evaluated in the ED. In short, 74-year-old female with significant past medical history of sigmoidectomy with diverting colostomy in September 2003, hypertension, COPD, CKD, chronic diverticulitis with episodes of abscess, and hypertension, presented to the ED for left lower quadrant abdominal pain beginning approximately 2 days prior to admission. In the ED, patient was afebrile, vital signs were stable, significant labs included WBC of 20, bicarb 19, BUN 33 and creatinine of 2.1, baseline appears to be approximately 1.4. Patient was given pain medication in the ED. As such patient will be admitted to [facility] for diverticulitis with corresponding peridiverticular abscess measuring approximately 6.2 x 6.5 cm with possible communication to the bladder., Patient will be started on ciprofloxacin and Flagyl, general surgery was consulted by the ED staff who recommended admission, we appreciate further recommendations, patient will likely need the abscess drained and this will either be with surgery or IR tomorrow, will keep the patient n.p.o. after midnight and begin IVF. Of note, the patient was to follow-up with urology likely for this communicating abscess that was also seen in the past, her appointment apparently is not until June. Blood and urine cultures pending, will continue to monitor closely while she is here. IV Dilaudid for pain control
[2025-04-01] MEDS: metroNIDAZOLE/NS 500 MG IVPB 500 MG/100 ML BAG 200 MG IV (18:57)
[2025-04-01] MEDS: SODIUM CHLORIDE 0.9% 1000 ML 1,000 ML 75 ML IV (18:57)
[2025-04-01 19:01] LABS: Collection Type, Urine Clean Catch
[2025-04-01 19:14] LABS: Bacteria,Urine 1+; Bilirubin,Urine Negative (Negative); Blood,Urine 2+ (Negative); Color,Urine Yellow (Lt Yel-Yel); Glucose, Urine Negative (Negative); Hyaline Casts,Urine 1 /hpf (0-1); Ketones,Urine Negative (Negative); Leukocyte Esterase,Urine Positive (Negative); Nitrite,Urine Negative (Negative); PH,Urine 6.0 (5.0-7.0); Protein,Urine 2+ (Neg - Trace); RBC,Urine 19 /hpf (0-3); Specific Gravity,Urine 1.017 (1.001-1.035); Squamous Epithelial Cell,Urine 2 /hpf (0-5); Urobilinogen,Urine 2.0 mg/dL (0.0-1.0); WBC,Urine 214 /hpf (0-5)
[2025-04-01 19:16] LABS: Clarity,Urine Turbid (Clear/Hazy)
[2025-04-01] MEDS: CIPROFLOXACIN/D5w 400 MG IVPB 400 MG/200 ML BAG 200 MG IV (20:48)
[2025-04-02] VITALS (15 sets, daily range): BP systolic 99–125; BP diastolic 45–73; PULSE 82–102; RESP 16–96; TEMP 36.3–37.5; O2SAT 92–100
[2025-04-02] MEDS: HYDROmorphone INJ 2 MG/ML VIAL 0.5 MG IVP ×3 (00:29→18:26)
[2025-04-02] MEDS: metroNIDAZOLE/NS 500 MG IVPB 500 MG/100 ML BAG 200 MG IV ×3 (05:48→21:11)
[2025-04-02] MEDS: ONDANSETRON INJ 2 MG/ML INJ 2 ML 4 MG IVP (05:51)
[2025-04-02 06:07] LABS: Basophils # (Auto) 0.1 Thou/mm3 (0.0-0.2); Basophils % (Auto) 0 % (0-2.5); Eosinophils # (Auto) 0.0 Thou/mm3 (0.0-0.5); Eosinophils % (Auto) 0 % (0-10); Hematocrit 36.6 % (36.0-46.0); Hemoglobin 12.3 g/dL (12.0-16.0); Immature Granulocytes Auto 0.18 Thou/mm3 (0.00-0.00); Lymphocytes # (Auto) 3.0 Thou/mm3 (1.0-4.8); Lymphocytes % (Auto) 15 % (10-50); Mean Corpuscular HGB Conc 33.6 g/dl (31.0-37.0); Mean Corpuscular Hemoglobin 29.9 pg (25.0-35.0); Mean Corpuscular Volume 89 fL (80-100); Monocytes # (Auto) 2.2 Thou/mm3 (0.0-0.8); Monocytes % (Auto) 11 % (0-12); Neutrophils # (Auto) 14.7 Thou/mm3 (1.8-7.7); Neutrophils % (Auto) 73 % (37-80); Nucleated Red Blood Cell # 0.00 Thou/mm3 (0.00-0.00); Nucleated Red Blood Cell % 0 /100 WBC (0); Platelet Count 302 Thou/mm3 (140-440); RDW Standard Deviation 41.9 fL (36.4-46.3); Red Blood Count 4.12 Miln/mm3 (4.00-5.20); White Blood Count 20.2 Thou/mm3 (3.6-11.0)
[2025-04-02 06:17] LABS: INR 1.0 (0.9-1.3); Partial Thromboplastin Time 27.3 Seconds (22.0-36.0); Prothrombin Time 11.1 Seconds (9.0-12.2)
[2025-04-02 06:35] LABS: Alanine Aminotransferase 85 U/L (10-49); Albumin, Serum 3.8 gm/dL (3.4-4.8); Albumin/Globulin Ratio 1.3 (1.2-2.2); Alkaline Phosphatase 147 U/L (46-116); Anion Gap 12 (7-16); Aspartate Amino Transferase 57 U/L (0-34); BUN/Creatinine Ratio 14 Ratio (12-20); Bilirubin,Total 0.8 mg/dL (0.3-1.2); Blood Urea Nitrogen 27 mg/dL (9-23); Calcium 8.9 mg/dL (8.3-10.6); Calcium (Corrected) 9.1 mg/dL (8.5-10.1); Carbon Dioxide 21.3 mMol/L (20.0-31.0); Chloride 109 mMol/L (98-107); Creatinine (Component) 1.9 mg/dL (0.6-1.3); Estimated Creatinine Clearance 22.7 mL/min (>60); Globulin 3.0 gm/dL (2.3-3.5); Glucose 98 mg/dL (74-106); Magnesium 2.0 mg/dL (1.6-2.6); Osmolality,Calculated 288 (275-295); Phosphorous 3.8 mg/dL (2.4-5.1); Potassium 4.0 mMol/L (3.4-5.1); Sodium 142 mMol/L (136-145); Total Protein 6.8 gm/dL (5.7-8.2); eGFR 28 See Note
--- NOTE | 2025-04-02 07:20 | PD.SURCONS ---
HPI Consult details Consult date: 04/02/25 Reason for consultation narrative: Diverticulitis with abscess History of present illness: 74-year-old female with history of hypertension, hyperlipidemia, CKD, COPD and diverticulitis had undergone what appeared to be diverting loop transverse colostomy about a year ago. She underwent colonoscopy earlier this year in preparation for reversal of colostomy. She states that she was supposed to have sigmoid colectomy with reversal of colostomy in December that did not happen. She was admitted to this hospital in October with peridiverticular abscess and colovesical fistula, the abscess was drained percutaneously and patient was discharged on oral antibiotics. She presented to the emergency department yesterday with abdominal pain, nausea and vomiting. She continues to have dysuria but denies fecal urea or pneumaturia. Review of Systems Constitutional Constitutional: Denies chills and Denies fever(s) Cardiovascular Cardiovascular: Denies chest pain Respiratory Respiratory: Denies cough Gastrointestinal Gastrointestinal: Reports abdominal pain, Reports nausea and Reports vomiting Genitourinary Genitourinary: Reports urinary urgency Hematologic/Lymphatic Hematologic/Lymphatic: Denies easy bleeding and Denies easy bruising Past Medical History Surgical History OTHER SURGICAL HX: Appendectomy, cholecystectomy, diverting loop colostomy Meds Home Medications and Allergies Home Medications ?Medication ?Instructions ?Recorded ?Confirmed ?Type losartan 50 mg tablet 50 mg PO QDAY 12/30/21 04/02/25 History carvedilol 12.5 mg tablet 12.5 mg PO 2XD 11/17/24 04/02/25 History simvastatin 40 mg tablet 40 mg PO 1XD 11/17/24 04/02/25 History Allergies Allergy/AdvReac Type Severity Reaction Status Date / Time codeine Allergy Intermediate Rash Verified 04/01/25 13:48 Exam Vital Signs Temp Pulse Resp BP Pulse Ox O2 Del Method 98.1 F 89 18 107/57 L 92 L Room Air 04/02/25 04:00 04/02/25 04:00 04/02/25 04:00 04/02/25 04:00 04/02/25 04:00 04/02/25 04:00 Constitutional Constitutional: no acute distress Routine Abdominal Exam Comments: Abdomen is soft and nondistended. Colostomy is present and functioning. She has lower abdominal tenderness to deep palpation with guarding, no rebound tenderness or peritonitis at this time Results Results: Laboratory Laboratory results: results reviewed Results: Imaging CT scan - abdomen: report reviewed and image reviewed CT scan - pelvis: report reviewed and image reviewed Assessment & Plan Additional Assessment Additional comments: Recurrent diverticulitis with abscess and colovesical fistula Plan Percutaneous drainage of the abscess and continue IV antibiotics. No indication for surgical intervention at this time. He should follow-up with her surgeon upon discharge for further management
--- NOTE | 2025-04-02 07:24 | XR_ITS ---
Examination: CT guided percutaneous drainage pelvic abscess, without contrast. 2-D sagittal reconstructions. 2-D coronal reconstructions. 3-D reconstructions. Date and time of exam: April 02, 2025, 1316 hours INDICATIONS: CT abdomen pelvis April 21, 2025 large pelvic abscess, acute sigmoid diverticulitis CTDI: vol (mGy): 159 DLP: (mGycm): 463 Technique: Multiple 1.25 mm axial sections of the pelvis have been obtained. 2-D sagittal and coronal reconstructions have been obtained. 3-D reconstructions have been obtained. Low dose protocols were performed. One or more of the following dose reduction techniques were used; automated exposure control, adjustment of the mA and/or KV according to patient size, use of iterative reconstruction technique. Findings: Informed consent provided. Timeout performed. Skin prepped over the anterior pelvis and sterile drape applied maximum barrier sterile technique and hygiene 1% lidocaine administered for local anesthesia Utilizing CT fluoroscopic guidance 5 [place] catheter placed in the large pelvic abscess 200 cc grossly purulent material removed 0.35 wire guide introduced to the catheter followed by a 7 [place] dilator and a 6 [place] pigtail abscess drainage catheter in proper position under CT fluoroscopic guidance Estimated blood loss 2 cc IMPRESSION: Successful CT-guided percutaneous placement abscess drainage catheter into pelvic abscess Initial drainage 200 cc pus from the abscess collection
[2025-04-02] MEDS: CIPROFLOXACIN/D5w 400 MG IVPB 400 MG/200 ML BAG 200 MG IV ×2 (09:04→20:05)
--- NOTE | 2025-04-02 11:01 | PC.NURSE ---
charge nurse consulted Dr. Blanchard regarding ct drain abacess procedure, Dr. Palacios is willing to drain abscess with no drainage catheter left in place, consulted Hospitalist Dr Martines to let him know what the radiologist mentioned, Dr. Martines said to call Dr. Nation. Dr. Nation consulted and stated to proceed with dainage of abscess.
[2025-04-02] MEDS: fentaNYL CIT INJ 50 mCg/ML AMP 2ML 100 MCG IVP (13:33)
[2025-04-02] MEDS: LIDOCAINE INJ PF 1% 30 ML VIAL 15 ML INFL (13:39)
--- NOTE | 2025-04-02 14:16 | ESPR_ITS ---
<Statement entered by Kin Drummond MD - 04/02/25 15:55> Patient was seen and evaluated at bedside this morning. No acute overnight events. Patient this morning was taken for IR drainage of her abscess after General Surgery saw the patient and recommended IR guided drainage. 200 cc of pus was drained from the abscess and has a drainage in place. Patient tolerated procedure well. Will continue with current IV antibiotics. Start clear liquid diet as patient does not have any pain. Otherwise no other complaints at this time. General: A/O x3, no acute distress Eyes: PERRL, EOMI. Anicteric, vision grossly intact. Ears: No ear pain, no ear discharge, Hearing grossly intact. Nose: No nasal discharge. Mouth/Throat: Dry mucous membranes, no redness, no lesions. Neck: Neck supple, non-tender, no cervical lymphadenopathy. Lungs: Clear LEAH to auscultation and percussion, No accessory muscle use. Cardio: Normal S1/S2, regular rhythm, no murmurs, no JVD or carotid bruits. Abdomen: Soft, less tender in LLQ with drainage in place and empty bag, colostomy bag with liquid stool w/o blood,, no palpable masses, peristalsis present, no guarding or rebound. Extremities: Symmetrical, no significant deformities, no peripheral edema , non-tender, peripheral pulses presents. Skin: No rashes, no lesions, warm to touch. Neuro: No focal neurological deficits. motor and sensory intact Psych: Cooperative, appropriate mood and effect. I have reviewed the note and agree with the medical student's assessment & plan with exceptions as below. I have personally reviewed labs, imaging, home meds/prior records, examined the patient, formulated and discussed management plan with my attending Kin Drummond PGY2 Disclaimer: Even though this this note was dictated by speech recognition and even though it was carefully revised there may still be minor errors in engineering patternmaker due to voice recognition software. Documentation for date of: 04/02/25 Subjective Subjective Interval history: Spoke at length with patient and nurse for updates. Overnight no acute events.Today the patient reports mild nausea, improving 6/10 LLQ abdominal pain. Otherwise denies SOB, vomiting, diarrhea, constipation, chest pain, fever/chills. Her colostomy bag this morning was filled with material and was emptied by the nurse for the first time this admission. ROS negative except as noted above. Exam Vital Signs Temp Pulse Resp BP Pulse Ox O2 Del Method 99.5 F 94 18 122/73 93 L Room Air 04/02/25 11:27 04/02/25 11:27 04/02/25 11:27 04/02/25 11:27 04/02/25 11:27 04/02/25 08:00 Narrative Exam General: A/O x3, no acute distress Eyes: PERRL, EOMI. Anicteric, vision grossly intact. Ears: No ear pain, no ear discharge, Hearing grossly intact. Nose: No nasal discharge. Mouth/Throat: Moist mucous membranes, no redness, no lesions. Neck: Neck supple, non-tender, no cervical lymphadenopathy. Lungs: Clear to auscultation bilaterally, no rales/rhonchi/wheezes, no accessory muscle use. Cardio: Normal S1/S2, regular rate and rhythm, no murmurs, no JVD Abdomen: Soft, TTP LLQ w/ scar from previous percutaneous drainage of abscess. Colostomy bag draining well, dry and intact. No palpable masses, peristalsis present, no guarding or rebound. Extremities: Symmetrical, no significant deformities, no peripheral edema , non-tender, peripheral pulses presents. Skin: No rashes, no lesions, warm to touch. Neuro: No focal neurological deficits. motor and sensory intact Psych: Cooperative, appropriate mood and effect. Objective Labs 04/03/25 09:48 04/03/25 04:48 Labs: Laboratory Results - last 24 hr 04/01/25 04/01/25 04/01/25 14:19 14:44 18:56 WBC 20.5 H RBC 4.56 Hgb 13.4 Hct 39.2 MCV 86 MCH 29.4 MCHC 34.2 RDW Std Deviation 39.9 Plt Count 371 Neut % (Auto) 72 Lymph % (Auto) 16 [place] % (Auto) 11 Eos % (Auto) 0 Baso % (Auto) 0 Neut # (Auto) 14.7 H Lymph # (Auto) 3.3 [place] # (Auto) 2.3 H Eos # (Auto) 0.0 Baso # (Auto) 0.1 Immature Gran # (Auto) 0.15 H Absolute Nucleated RBC 0.00 Immature Gran % 1 H Nucleated RBC % 0 PT INR APTT Sodium 138 Potassium 3.6 Chloride 106 Carbon Dioxide 19.2 L Anion Gap 13 BUN 33 H Creatinine 2.1 H Estim Creat Clear Calc 20.1 L eGFR 24 L BUN/Creatinine Ratio 16 Glucose 136 H Calculated Osmolality 284 Lactic Acid 1.4 Calcium 9.5 Corrected Calcium 9.5 Phosphorus Magnesium Total Bilirubin 0.8 AST 30 ALT 44 Alkaline Phosphatase 113 Total Protein 7.8 Albumin 4.3 Globulin 3.5 Albumin/Globulin Ratio 1.2 Lipase 33 Ur Collection Type Clean Catch Urine Color Yellow Urine Clarity Turbid A Urine pH 6.0 Ur Specific [place] 1.017 Urine Protein 2+ A Urine Glucose (UA) Negative Urine Ketones Negative Urine Blood 2+ A Urine Nitrite Negative Urine Bilirubin Negative Urine Urobilinogen (Auto) 2.0 Ur Leukocyte Esterase Positive Urine RBC 19 H Urine WBC 214 H Ur Squamous Epith Cells 2 Urine Bacteria 1+ A Hyaline Casts 1 04/02/25 05:09 WBC 20.2 H RBC 4.12 Hgb 12.3 Hct 36.6 MCV 89 MCH 29.9 MCHC 33.6 RDW Std Deviation 41.9 Plt Count 302 D Neut % (Auto) 73 Lymph % (Auto) 15 [place] % (Auto) 11 Eos % (Auto) 0 Baso % (Auto) 0 Neut # (Auto) 14.7 H Lymph # (Auto) 3.0 [place] # (Auto) 2.2 H Eos # (Auto) 0.0 Baso # (Auto) 0.1 Immature Gran # (Auto) 0.18 H Absolute Nucleated RBC 0.00 Immature Gran % 1 H Nucleated RBC % 0 PT 11.1 INR 1.0 APTT 27.3 Sodium 142 Potassium 4.0 Chloride 109 H Carbon Dioxide 21.3 Anion Gap 12 BUN 27 H Creatinine 1.9 H Estim Creat Clear Calc 22.7 L eGFR 28 L BUN/Creatinine Ratio 14 Glucose 98 Calculated Osmolality 288 Lactic Acid Calcium 8.9 Corrected Calcium 9.1 Phosphorus 3.8 Magnesium 2.0 Total Bilirubin 0.8 AST 57 H ALT 85 H Alkaline Phosphatase 147 H D Total Protein 6.8 Albumin 3.8 D Globulin 3.0 Albumin/Globulin Ratio 1.3 Lipase Ur Collection Type Urine Color Urine Clarity Urine pH Ur Specific [place] Urine Protein Urine Glucose (UA) Urine Ketones Urine Blood Urine Nitrite Urine Bilirubin Urine Urobilinogen (Auto) Ur Leukocyte Esterase Urine RBC Urine WBC Ur Squamous Epith Cells Urine Bacteria Hyaline Casts Quality Measures Quality Measures none Advance care planning discussed with:: patient Assessment & Plan Assessment Current Active Medications: Generic Name Dose Route Start Last Admin Trade Name Freq PRN Reason Stop Dose Admin Acetaminophen 650 mg 04/01/25 18:27 Acetaminophen 325 Mg Tablet PO 05/01/25 18:26 Q6H PRN Fever >101.5 Hydromorphone HCl 0.5 mg 04/01/25 18:27 04/02/25 05:46 Hydromorphone Inj 2 Mg/Ml Vial IVP 04/06/25 18:26 0.5 mg Q2H PRN Administration PAIN SCALE 4-10(Mod-Sev Ciprofloxacin/Dextrose 400 mg in 200 mls @ 200 mls/hr 04/02/25 09:00 04/02/25 09:04 Cipro Ivpb IV 04/08/25 18:30 200 mls/hr Q12HR GRANT Administration Metronidazole 500 mg in 100 mls @ 200 mls/hr 04/01/25 18:32 04/02/25 05:48 Flagyl 500 Mg Iv IV 04/08/25 18:31 200 mls/hr Q8HR GRANT Administration Ondansetron HCl 4 mg 04/01/25 18:27 04/02/25 05:51 Ondansetron Inj 2 Mg/Ml Inj 2 Ml IVP 05/01/25 18:26 4 mg Q6H PRN Administration NAUSEA OR VOMITING Protocol Plan 74 year old female with history of hypertension, COPD, CKD, diverticulitis s/p diverting colostomy performed 09/2023 at [facility] by Dr. Armando and hospitalized here 11/17-11/20/2024 for diverticular abscess s/p percutaneous drainage by surgeon Dr. Soto on 11/19/2024 presents to the ED for evaluation of intractable LLQ abdominal pain x2 days. Abscess + diverticulitis found on ED CT Ab/Pelv, admitted for planned drainage. #Acute Diverticulitis #Colonic Abscess #Leukocytosis #Transaminitis Pt presents with long history of recurrent sigmoid diverticulitis, plan for surgical intervention following urology consultation in June. Most recently pt reports x2 days intractable LLQ Abdominal pain, fever, n/v, and poor oral intake that she characterizes as similar to previous diverticulitis flare-ups. CT Ab/Pelvis 04/01 showed acute sigmoid diverticulitis and thick-walled probable abscess below sigmoid colon 6.2x6.5cm which appears to communicate with bladder. Notably CT from previous visit for percutaneous drainage showed the same abscess ~3cm in diameter at that time. WBCs 20.5 in ED, stable at 20.2 today. Additionally today pt's LFTs are elevated, AST 57, ALT 85, ALP 147. Most likely benign and 2/2 ciprofloxacin initiation, will monitor for now. - Appreciate consult general surgery Dr. Howell. Recommendations as below - Discontinued fluids - Cont IV Flagyl 500mg. Initiated Ciprofloxacin 400mg IV - NPO today with plan for percutaneous drainage, per general surgery no surgical intervention indicated at this time however pt is strongly urged to seek general surgery followup as outpt. Percutenaous drainage completed, 200cc drained and pigtail catheter placed. Will advance diet to clear liquids. - Monitor labs in AM #KAILA Creatinine 2.1, BUN 31 in ED. Pt has CKD and notes previous BUNs in range of 20s-30s, unaware of baseline creatinine. Improving today with creatinine 1.9, BUN 27 -Monitor CMP in AM #COPD Not in exacerbation currently. Pt is saturating well on room air, not currently endorsing respiratory symptoms. Lungs CTA b/l. -Monitor Hospital Management Disposition: Pt to undergo percutaneous drainage in PM today Diet: NPO GI prophylaxis: none DVT prophylaxis: SCDs Code: DNR ----- Plan discussed with attending physician Dr. Geovany Muñoz, Medical Student [employer] Attending Provider Attestation/Addendum I have discussed and was present for the essential components of the history, physical examination, diagnosis, and treatment plan with the resident. I agree with the patient's care as documented by the resident and amended herein by me. Huy Armenta DO. Although this document has been carefully reviewed, there may still be some phonetic and other typographical errors. These errors are purely grammatical due to imperfections in the software program and should not be construed in any way to compromise the substance of the patient's medical care during this visit.
--- NOTE | 2025-04-02 14:47 | PC.SS ---
Patient is alert/oriented. Patient was able to verify demographics. Patient states she resides with her family. Admitted for diverticulitis with abscess. Prior to hospitalization patient was independent with ADL's. Patient does not possess any DME. Patient follows with Dr Arana @ [facility]. Last appt. was one month ago. Patient also follows with Dr. Patel. Patient states she has an ostomy bag and receives her supplies through [facility]. Pharmacy: [facility]. Patient drives herself to appointments. Patient plans on returning home upon discharge. Alt medical decision maker: Giovanny Blood, son, transportation: family
[2025-04-03] VITALS (8 sets, daily range): BP systolic 92–135; BP diastolic 52–66; PULSE 81–90; RESP 18–94; TEMP 36.2–37.4; O2SAT 92–93
[2025-04-03] MEDS: HYDROmorphone INJ 2 MG/ML VIAL 0.5 MG IVP ×3 (01:34→19:57)
[2025-04-03] MEDS: metroNIDAZOLE/NS 500 MG IVPB 500 MG/100 ML BAG 200 MG IV (05:10)
[2025-04-03 06:00] LABS: Basophils # (Auto) 0.1 Thou/mm3 (0.0-0.2); Basophils % (Auto) 0 % (0-2.5); Eosinophils # (Auto) 0.0 Thou/mm3 (0.0-0.5); Eosinophils % (Auto) 0 % (0-10); Hematocrit 30.6 % (36.0-46.0); Hemoglobin 10.0 g/dL (12.0-16.0); Immature Granulocytes Auto 0.21 Thou/mm3 (0.00-0.00); Lymphocytes # (Auto) 2.4 Thou/mm3 (1.0-4.8); Lymphocytes % (Auto) 15 % (10-50); Mean Corpuscular HGB Conc 32.7 g/dl (31.0-37.0); Mean Corpuscular Hemoglobin 29.4 pg (25.0-35.0); Mean Corpuscular Volume 90 fL (80-100); Monocytes # (Auto) 1.9 Thou/mm3 (0.0-0.8); Monocytes % (Auto) 12 % (0-12); Neutrophils # (Auto) 11.5 Thou/mm3 (1.8-7.7); Neutrophils % (Auto) 72 % (37-80); Nucleated Red Blood Cell # 0.00 Thou/mm3 (0.00-0.00); Nucleated Red Blood Cell % 0 /100 WBC (0); Platelet Count 247 Thou/mm3 (140-440); RDW Standard Deviation 42.8 fL (36.4-46.3); Red Blood Count 3.40 Miln/mm3 (4.00-5.20); White Blood Count 16.1 Thou/mm3 (3.6-11.0)
[2025-04-03 06:24] LABS: Alanine Aminotransferase 49 U/L (10-49); Albumin, Serum 3.4 gm/dL (3.4-4.8); Albumin/Globulin Ratio 1.3 (1.2-2.2); Alkaline Phosphatase 117 U/L (46-116); Anion Gap 11 (7-16); Aspartate Amino Transferase 22 U/L (0-34); BUN/Creatinine Ratio 14 Ratio (12-20); Bilirubin,Total 0.5 mg/dL (0.3-1.2); Blood Urea Nitrogen 24 mg/dL (9-23); Calcium 9.1 mg/dL (8.3-10.6); Calcium (Corrected) 9.6 mg/dL (8.5-10.1); Carbon Dioxide 20.8 mMol/L (20.0-31.0); Chloride 110 mMol/L (98-107); Creatinine (Component) 1.7 mg/dL (0.6-1.3); Estimated Creatinine Clearance 25.4 mL/min (>60); Globulin 2.7 gm/dL (2.3-3.5); Glucose 96 mg/dL (74-106); Magnesium 1.7 mg/dL (1.6-2.6); Osmolality,Calculated 287 (275-295); Phosphorous 3.4 mg/dL (2.4-5.1); Potassium 3.8 mMol/L (3.4-5.1); Sodium 142 mMol/L (136-145); Total Protein 6.1 gm/dL (5.7-8.2); eGFR 31 See Note
[2025-04-03] MEDS: CIPROFLOXACIN/D5w 400 MG IVPB 400 MG/200 ML BAG 200 MG IV (08:32)
[2025-04-03] MEDS: cefTRIAXone/D5w 1gm IV premix 1 GM/50 ML BAG IV (09:00)
--- NOTE | 2025-04-03 09:05 | ESPR_ITS ---
<Statement entered by Kin Drummond MD - 04/03/25 19:10> Patient was seen and evaluated at bedside this morning. No acute overnight events. Patient tolerated well clear liquid diet yesterday therefore advance diet to full liquid this morning and plan to advance to regular diet by lunchtime if patient is able to tolerate. From her drainage bag she had a total of 250 cc drained this morning from overnight. She still reports some left lower quadrant pain, but no fevers or pain out of proportion. Patient is abscess cultures are still pending therefore we will wait for the results prior to discharge. Switched to Zosyn. Expect possible discharge in next 24 to 40 hours once cultures are back. General: A/O x3, no acute distress Eyes: PERRL, EOMI. Anicteric, vision grossly intact. Ears: No ear pain, no ear discharge, Hearing grossly intact. Nose: No nasal discharge. Mouth/Throat: Dry mucous membranes, no redness, no lesions. Neck: Neck supple, non-tender, no cervical lymphadenopathy. Lungs: Clear LEAH to auscultation and percussion, No accessory muscle use. Cardio: Normal S1/S2, regular rhythm, no murmurs, no JVD or carotid bruits. Abdomen: Soft, less tender in LLQ with drainage in place and some residual purulent drainage from previous emptying, colostomy bag with liquid stool w/o blood, catheter site clean with no erythema, no palpable masses, peristalsis present, no guarding or rebound. Extremities: Symmetrical, no significant deformities, no peripheral edema , non-tender, peripheral pulses presents. Skin: No rashes, no lesions, warm to touch. Neuro: No focal neurological deficits. motor and sensory intact Psych: Cooperative, appropriate mood and effect. I have reviewed the note and agree with the medical student's assessment & plan with exceptions as below. I have personally reviewed labs, imaging, home meds/prior records, examined the patient, formulated and discussed management plan with my attending Kin Drummond PGY2 Disclaimer: Even though this this note was dictated by speech recognition and even though it was carefully revised there may still be minor errors in manager child due to voice recognition software. Documentation for date of: 04/03/25 Subjective Subjective Interval history: Spoke at length with patient and nurse for updates. Overnight no events, no acute concerns today. Pt is s/p x1 day percutaneous CT- guided drainage of sub-sigmoid abscess w/ 200cc purulent fluid drained as well as drainage catheter placement. Colostomy bag had been drained again this morning and had some material. This morning catheter showed sanguinous and purulent drainage. Today she reports ongoing LLQ abdominal pain, otherwise denies SOB, fever/chills, chest pain, dysuria. Exam Vital Signs Temp Pulse Resp BP Pulse Ox O2 Del Method O2 Flow Rate 97.7 F 90 18 133/64 H 93 L Room Air 3 04/03/25 08:00 04/03/25 08:00 04/03/25 08:00 04/03/25 08:00 04/03/25 08:00 04/03/25 08:00 04/02/25 14:50 Narrative Exam General: A/O x3, no acute distress Eyes: PERRL, EOMI. Anicteric, vision grossly intact. Ears: No ear pain, no ear discharge, Hearing grossly intact. Nose: No nasal discharge. Mouth/Throat: Moist mucous membranes, no redness, no lesions. Neck: Neck supple, non-tender, no cervical lymphadenopathy. Lungs: Clear to auscultation bilaterally, no rales/rhonchi/wheezes, no accessory muscle use. Cardio: Normal S1/S2, regular rate and rhythm, no murmurs, no JVD Abdomen: TTP LLQ w/ scar from previous percutaneous drainage of abscess. Colostomy bag draining well, dry and intact. Drainage catheter properly placed, bandaging dry and intact, area surrounding warm and nonerythematous. No palpable masses, peristalsis present, no guarding or rebound, soft. Extremities: Symmetrical, no significant deformities, no peripheral edema , non-tender, peripheral pulses presents. Skin: No rashes, no lesions, warm to touch. Neuro: No focal neurological deficits. motor and sensory intact Psych: Cooperative, appropriate mood and effect. Objective Labs 04/03/25 09:48 04/03/25 04:48 Labs: Laboratory Results - last 24 hr 04/01/25 04/03/25 18:56 04:48 WBC 16.1 H RBC 3.40 L Hgb 10.0 L D Hct 30.6 L MCV 90 MCH 29.4 MCHC 32.7 RDW Std Deviation 42.8 Plt Count 247 D Neut % (Auto) 72 Lymph % (Auto) 15 [place] % (Auto) 12 Eos % (Auto) 0 Baso % (Auto) 0 Neut # (Auto) 11.5 H Lymph # (Auto) 2.4 [place] # (Auto) 1.9 H Eos # (Auto) 0.0 Baso # (Auto) 0.1 Immature Gran # (Auto) 0.21 H Absolute Nucleated RBC 0.00 Immature Gran % 1 H Nucleated RBC % 0 Sodium 142 Potassium 3.8 Chloride 110 H Carbon Dioxide 20.8 Anion Gap 11 BUN 24 H Creatinine 1.7 H Estim Creat Clear Calc 25.4 L eGFR 31 L BUN/Creatinine Ratio 14 Glucose 96 Calculated Osmolality 287 Calcium 9.1 Corrected Calcium 9.6 Phosphorus 3.4 Magnesium 1.7 Total Bilirubin 0.5 AST 22 ALT 49 Alkaline Phosphatase 117 H D Total Protein 6.1 Albumin 3.4 Globulin 2.7 Albumin/Globulin Ratio 1.3 Ur Collection Type Clean Catch Urine Color Yellow Urine Clarity Turbid A Urine pH 6.0 Ur Specific [place] 1.017 Urine Protein 2+ A Urine Glucose (UA) Negative Urine Ketones Negative Urine Blood 2+ A Urine Nitrite Negative Urine Bilirubin Negative Urine Urobilinogen (Auto) 2.0 Ur Leukocyte Esterase Positive Urine RBC 19 H Urine WBC 214 H Ur Squamous Epith Cells 2 Urine Bacteria 1+ A Hyaline Casts 1 Quality Measures Quality Measures none Advance care planning discussed with:: patient Assessment & Plan Assessment Current Active Medications: Generic Name Dose Route Start Last Admin Trade Name Freq PRN Reason Stop Dose Admin Acetaminophen 650 mg 04/01/25 18:27 Acetaminophen 325 Mg Tablet PO 05/01/25 18:26 Q6H PRN Fever >101.5 Hydromorphone HCl 0.5 mg 04/01/25 18:27 04/03/25 01:34 Hydromorphone Inj 2 Mg/Ml Vial IVP 04/06/25 18:26 0.5 mg Q2H PRN Administration PAIN SCALE 4-10(Mod-Sev Metronidazole 500 mg in 100 mls @ 200 mls/hr 04/01/25 18:32 04/03/25 05:10 Flagyl 500 Mg Iv IV 04/08/25 18:31 200 mls/hr Q8HR GRANT Administration Ceftriaxone Sodium/Dextrose 1 gm in 50 mls @ 100 mls/hr 04/03/25 09:00 Rocephin/D5w 1gm Iv Premix IV 04/10/25 08:59 QDAY GRANT Ondansetron HCl 4 mg 04/01/25 18:27 04/02/25 05:51 Ondansetron Inj 2 Mg/Ml Inj 2 Ml IVP 05/01/25 18:26 4 mg Q6H PRN Administration NAUSEA OR VOMITING Protocol Plan 74 year old female with history of hypertension, COPD, CKD, diverticulitis s/p diverting colostomy performed 09/2023 at [facility] by Dr. Armando and hospitalized here 11/17-11/20/2024 for diverticular abscess s/p percutaneous drainage by surgeon Dr. Soto on 11/19/2024 presents to the ED for evaluation of intractable LLQ abdominal pain x2 days. Abscess + diverticulitis found on ED CT Ab/Pelv, admitted for planned drainage. #Acute Diverticulitis #Colonic Abscess #Leukocytosis #UTI #Transaminitis Pt presents with long history of recurrent sigmoid diverticulitis, plan for surgical intervention following urology consultation in June. Most recently pt reports x2 days intractable LLQ Abdominal pain, fever, n/v, and poor oral intake that she characterizes as similar to previous diverticulitis flare-ups. CT Ab/Pelvis 04/01 showed acute sigmoid diverticulitis and thick-walled probable abscess below sigmoid colon 6.2x6.5cm which appears to communicate with bladder. Notably CT from previous visit for percutaneous drainage showed the same abscess ~3cm in diameter at that time. WBCs 20.5 in ED, stable at 16.1 today and downtrending steadily. 04/02/25 CT-guided drainage of abscess was successful, 200cc purulent fluid drained, catheter placed. Catheter today draining well however drainage is sanguinous and purulent. Additionally yesterdays pt's LFTs are elevated, however today have normalized. Only ALP is still mildly elevated at 117 from 147 yesterday. Most likely benign and 2/2 ciprofloxacin initiation, improving. UA 04/01 concerning for UTI, adjusted abx as below. - Appreciate consult general surgery Dr. Howell, per recs no surgical intervention necessary this admission. Will follow the patient as outpt - Cont IV Flagyl 500mg (04/01-). Discontinued IV Ciprofloxacin 400mg (04/02), started IV Rocephin 1g (04/03-) - Pending blood and abscess fluid cx - Monitor labs in AM #KAILA Creatinine 2.1, BUN 31 in ED. Pt has CKD and notes previous BUNs in range of 20s-30s, unaware of baseline creatinine. Improving today with creatinine 1.7, BUN 24 -Monitor CMP in AM #COPD Not in exacerbation currently. Pt is saturating well on room air, not currently endorsing respiratory symptoms. Lungs CTA b/l. -Monitor Hospital Management Disposition: Pending cultures Diet: clear liquid DVT prophylaxis: SCDs Code: DNR ----- Plan discussed with attending physician Dr. Geovany Muñoz, Medical Student [employer] Attending Provider Attestation/Addendum I have discussed and was present for the essential components of the history, physical examination, diagnosis, and treatment plan with the resident. I agree with the patient's care as documented by the resident and amended herein by me. Huy Armenta, DO. Although this document has been carefully reviewed, there may still be some phonetic and other typographical errors. These errors are purely grammatical due to imperfections in the software program and should not be construed in any way to compromise the substance of the patient's medical care during this visit. Patient seen and evaluated this AM. Vital signs stable, patient afebrile overnight significant labs include a downtrending WBC of 16, hemoglobin of 10, BUN 24 and a creatinine of 1.7 which is downtrending. Urine cultures demonstrating greater than 100,000 CFU of E. coli which has an indeterminant sensitivity to ciprofloxacin, and considering the patient's wound culture on 11/19/2024 demonstrated E. coli which was sensitive to ciprofloxacin but resistant to ceftriaxone at that time, we will start the patient on renally dosed Zosyn for now. Patient otherwise is doing well, she did demonstrate hemopurulent drainage today from the abscess catheter, general surgery consulted, appreciate recommendations. Likely DC in 1 to 2 days pending continued improvement, likely can take drain out in the outpatient setting pending surgery recommendations.
[2025-04-03 10:18] LABS: Hematocrit 29.5 % (36.0-46.0); Hemoglobin 10.0 g/dL (12.0-16.0)
--- NOTE | 2025-04-03 13:04 | PC.NURSE ---
Rechecked blood sugar again after administering inulin. Blood glucose read 402 at 1300. Patient just got done eating lunch.
--- NOTE | 2025-04-03 13:08 | PD.RESDS ---
Planned Discharge Date 04/03/25 DS: Providers Provider Date of admission: 04/01/25 18:27 Primary care physician: Katharina Arana PA-C Admitting Provider: Eusebio Armenta DO Attending Provider on Admission: Eusebio Armenta DO Consults: 04/01/25 18:30 Consult to General Surgery Routine Comment: Consulting Provider: Quincy Nation Attending Provider on DC: Marsha Mo Discharging Provider: Marsha Mo DS: Diagnosis Problem List Completed Was Problem List Reviewed/Reconciled?: Yes Hospital Course Hospital Course Hospital course: Ms Maggie Blood is a 74yo F w/ PMH of HTN, COPD, CKD, diverticulitis s/p diverting colostomy performed 09/2023 at [facility] by Dr. Armando and hospitalized here 11/17-11/20/2024 for diverticular abscess s/p percutaneous drainage by surgeon Dr. Soto on 11/19/2024 presents to the ED for evaluation of intractable LLQ abdominal pain x2 days. She reports multiple previous episodes coinciding with diverticulitis/abscess flare most recently in October. Per her history she was supposed to have colostomy reversed and sigmoidectomy performed by Dr. Armando in December, however she had to reschedule. When she arrived later in December she was hypotensive and unable to complete the surgery. At this point she was informed Dr. Armando wanted to consult Dr. Higgins Urology (most likely d/t abscess communicating with bladder), but Dr. Higgins is not free for consult until June 2025. She currently has an appointment with Dr. Higgins in June 2025. Imaging revealed acute sigmoid diverticulitis and 6.2x6.5cm sub-sigmoid abscess appearing to communicate with the urinary bladder. Previous CT in October 2024 showed the same abscess ~3cm diameter that had only 6cc drained that admission. Presumably Dr. Higgins is being consulted d/t genitourinary involvement complicating prospective sigmoidectomy. UA showed signs of UTI. ED labs showed leukocytosis. She was placed on IV antibiotics and admitted for acute diverticulitis and abscess drainage. GI Dr. Goldstein was consulted who concluded that CT-guided percutaneous drainage was indicated and that no surgical intervention was necessary at this time. The patient underwent CT-guided percutaneous drainage on 04/02/25 without complication, successfully draining 200ccs of purulent material. A catheter was placed for continued drainage which was draining consistently following the procedure. Drainage during this admission was purulent and occasionally serosanguinous. The patient's WBC count downtrended steadily during this hospital stay. Upon discharge the patient is hemodynamically stable, continues to report expected post-procedure LLQ pain. Time Spent with Patient Time attestation: Total time spent providing and/or coordinating discharge services: Time spent: Greater than 30 minutes Exam Vital Signs Temp Pulse Resp BP Pulse Ox O2 Del Method O2 Flow Rate 97.1 F 83 18 126/59 L 92 L Room Air 3 04/03/25 12:00 04/03/25 12:00 04/03/25 12:00 04/03/25 12:00 04/03/25 12:00 04/03/25 12:00 04/02/25 14:50 Discharge Plan Problem List Was Problem List Reviewed/Reconciled?: Yes Prescriptions/Referrals Prescriptions/Med Rec: No Action losartan 50 mg Tablet 50 mg PO QDAY simvastatin 40 mg tablet 40 mg PO 1XD Patient Comments: TAKE 1 TABLET BY MOUTH EVERY DAY IN THE EVENING carvedilol 12.5 mg tablet 12.5 mg PO 2XD Patient Comments: TAKE 1 TABLET BY MOUTH TWICE DAILY Referrals: Katharina Arana PA-C [Primary Care Provider] Patient/Caregiver Discharge Instructions Print Language: Chadian Quality Discharge Quality Measures VTE prophylaxis MD Attestestation MD Attestation Patient not discharged on this day, see progress note
--- NOTE | 2025-04-03 13:52 | PD.SURPROG ---
Documentation for date of: 04/03/25 Subjective Subjective Narrative: Patient is seen and examined. She is resting comfortably. She underwent percutaneous drainage of peridiverticular abscess with catheter placement, initially 200 cc of purulent fluid drained, additional 250 cc purulent drainage overnight Exam Vital Signs Temp Pulse Resp BP Pulse Ox O2 Del Method O2 Flow Rate 97.1 F 83 18 126/59 L 92 L Room Air 3 04/03/25 12:00 04/03/25 12:00 04/03/25 12:00 04/03/25 12:00 04/03/25 12:00 04/03/25 12:00 04/02/25 14:50 Constitutional Constitutional: no acute distress Routine Abdominal Exam Comments: Abdomen is soft and nondistended. She has some tenderness to deep palpation over left lower quadrant and suprapubic area. Percutaneous catheter in place and intact. Colostomy is functioning Assessment & Plan Assessment Additional comments: Status post percutaneous drainage of peridiverticular abscess Plan Continue IV antibiotics. Once the drainage is significantly reduced, will repeat CT scan
[2025-04-03] MEDS: PIPER/TAZO INJ 4.5 GM in SODIUM CHLORIDE 0.9% (POP) 100 ML IV ×2 (14:24→21:57)
[2025-04-04] VITALS (7 sets, daily range): BP systolic 106–135; BP diastolic 53–73; PULSE 66–88; RESP 18–94; TEMP 36.2–37; O2SAT 93–96; BMI 29.5
[2025-04-04] MEDS: HYDROmorphone INJ 2 MG/ML VIAL 0.5 MG IVP ×3 (01:54→20:58)
[2025-04-04 05:47] LABS: Basophils # (Auto) 0.1 Thou/mm3 (0.0-0.2); Basophils % (Auto) 0 % (0-2.5); Eosinophils # (Auto) 0.0 Thou/mm3 (0.0-0.5); Eosinophils % (Auto) 0 % (0-10); Hematocrit 30.6 % (36.0-46.0); Hemoglobin 10.2 g/dL (12.0-16.0); Immature Granulocytes Auto 0.14 Thou/mm3 (0.00-0.00); Lymphocytes # (Auto) 1.9 Thou/mm3 (1.0-4.8); Lymphocytes % (Auto) 16 % (10-50); Mean Corpuscular HGB Conc 33.3 g/dl (31.0-37.0); Mean Corpuscular Hemoglobin 29.7 pg (25.0-35.0); Mean Corpuscular Volume 89 fL (80-100); Monocytes # (Auto) 1.2 Thou/mm3 (0.0-0.8); Monocytes % (Auto) 10 % (0-12); Neutrophils # (Auto) 8.7 Thou/mm3 (1.8-7.7); Neutrophils % (Auto) 73 % (37-80); Nucleated Red Blood Cell # 0.00 Thou/mm3 (0.00-0.00); Nucleated Red Blood Cell % 0 /100 WBC (0); Platelet Count 230 Thou/mm3 (140-440); RDW Standard Deviation 42.5 fL (36.4-46.3); Red Blood Count 3.44 Miln/mm3 (4.00-5.20); White Blood Count 12.0 Thou/mm3 (3.6-11.0)
[2025-04-04] MEDS: PIPER/TAZO INJ 4.5 GM in SODIUM CHLORIDE 0.9% (POP) 100 ML IV ×3 (05:58→21:02)
[2025-04-04 06:12] LABS: Alanine Aminotransferase 33 U/L (10-49); Albumin, Serum 3.3 gm/dL (3.4-4.8); Albumin/Globulin Ratio 1.1 (1.2-2.2); Alkaline Phosphatase 108 U/L (46-116); Anion Gap 10 (7-16); Aspartate Amino Transferase 16 U/L (0-34); BUN/Creatinine Ratio 10 Ratio (12-20); Bilirubin,Total 0.4 mg/dL (0.3-1.2); Blood Urea Nitrogen 18 mg/dL (9-23); Calcium 9.0 mg/dL (8.3-10.6); Calcium (Corrected) 9.6 mg/dL (8.5-10.1); Carbon Dioxide 21.8 mMol/L (20.0-31.0); Chloride 111 mMol/L (98-107); Creatinine (Component) 1.8 mg/dL (0.6-1.3); Estimated Creatinine Clearance 24.0 mL/min (>60); Globulin 3.1 gm/dL (2.3-3.5); Glucose 109 mg/dL (74-106); Magnesium 1.8 mg/dL (1.6-2.6); Osmolality,Calculated 287 (275-295); Phosphorous 3.2 mg/dL (2.4-5.1); Potassium 4.0 mMol/L (3.4-5.1); Sodium 143 mMol/L (136-145); Total Protein 6.4 gm/dL (5.7-8.2); eGFR 29 See Note
--- NOTE | 2025-04-04 09:13 | ESPR_ITS ---
<Statement entered by Kin Drummond MD - 04/04/25 11:44> Patient was seen and evaluated at bedside this morning. No acute overnight events. Patient's cultures did grow GNR, pending final sensitivity. Today she did have a little bit more tenderness on the left lower quadrant, but states that has been eating well before any pain. Patient would likely need repeat CT to further assess the size of the abscess once drainage decreases in volume. Continue Zosyn for now. General: A/O x3, no acute distress Eyes: PERRL, EOMI. Anicteric, vision grossly intact. Ears: No ear pain, no ear discharge, Hearing grossly intact. Nose: No nasal discharge. Mouth/Throat: Dry mucous membranes, no redness, no lesions. Neck: Neck supple, non-tender, no cervical lymphadenopathy. Lungs: Clear LEAH to auscultation and percussion, No accessory muscle use. Cardio: Normal S1/S2, regular rhythm, no murmurs, no JVD or carotid bruits. Abdomen: Soft, less tender in LLQ with drainage in place and purulent drainage, colostomy bag with liquid stool w/o blood, catheter site clean with no erythema, no palpable masses, peristalsis present, no guarding or rebound. Extremities: Symmetrical, no significant deformities, no peripheral edema , non-tender, peripheral pulses presents. Skin: No rashes, no lesions, warm to touch. Neuro: No focal neurological deficits. motor and sensory intact Psych: Cooperative, appropriate mood and effect. I have reviewed the note and agree with the medical student's assessment & plan with exceptions as below. I have personally reviewed labs, imaging, home meds/prior records, examined the patient, formulated and discussed management plan with my attending Kin Drummond PGY2 Disclaimer: Even though this this note was dictated by speech recognition and even though it was carefully revised there may still be minor errors in research biostatistician due to voice recognition software. Documentation for date of: 04/04/25 Subjective Subjective Interval history: Spoke at length with patient and nurse for updates. Overnight no acute events. Colostomy bag is filled with material. Abscess drainage catheter is in place and draining some serosanguinous as well as purulent fluid. Abscess cultures have returned GNR, awaiting identification. This morning she reports tenderness around the site of the catheter, however denies any n/v, fever/chills, chest pain, shortness of breath, dysuria. Exam Vital Signs Temp Pulse Resp BP Pulse Ox O2 Del Method O2 Flow Rate 98.6 F 81 18 121/61 95 Room Air 3 04/04/25 04:00 04/04/25 06:50 04/04/25 06:50 04/04/25 04:00 04/04/25 04:00 04/04/25 04:00 04/02/25 14:50 Narrative Exam General: A/O x3, no acute distress Eyes: PERRL, EOMI. Anicteric, vision grossly intact. Ears: No ear pain, no ear discharge, Hearing grossly intact. Nose: No nasal discharge. Mouth/Throat: Moist mucous membranes, no redness, no lesions. Neck: Neck supple, non-tender, no cervical lymphadenopathy. Lungs: Clear to auscultation bilaterally, no rales/rhonchi/wheezes, no accessory muscle use. Cardio: Normal S1/S2, regular rate and rhythm, no murmurs, no JVD Abdomen: Soft, TTP LLQ w/ scar from previous percutaneous drainage of abscess. Colostomy bag draining well, dry and intact. Drainage catheter in place, nonerythematous, dressing dry and intact. No palpable masses, peristalsis present, no guarding or rebound. Extremities: Symmetrical, no significant deformities, no peripheral edema , non-tender, peripheral pulses presents. Skin: No rashes, no lesions, warm to touch. Neuro: No focal neurological deficits. motor and sensory intact Psych: Cooperative, appropriate mood and effect. Objective Labs 04/05/25 08:50 04/05/25 08:50 Labs: Laboratory Results - last 24 hr 04/03/25 04/04/25 09:48 05:02 WBC 12.0 H RBC 3.44 L Hgb 10.0 L 10.2 L Hct 29.5 L 30.6 L MCV 89 MCH 29.7 MCHC 33.3 RDW Std Deviation 42.5 Plt Count 230 Neut % (Auto) 73 Lymph % (Auto) 16 [place] % (Auto) 10 Eos % (Auto) 0 Baso % (Auto) 0 Neut # (Auto) 8.7 H Lymph # (Auto) 1.9 [place] # (Auto) 1.2 H Eos # (Auto) 0.0 Baso # (Auto) 0.1 Immature Gran # (Auto) 0.14 H Absolute Nucleated RBC 0.00 Immature Gran % 1 H Nucleated RBC % 0 Sodium 143 Potassium 4.0 Chloride 111 H Carbon Dioxide 21.8 Anion Gap 10 BUN 18 Creatinine 1.8 H Estim Creat Clear Calc 24.0 L eGFR 29 L BUN/Creatinine Ratio 10 L Glucose 109 H Calculated Osmolality 287 Calcium 9.0 Corrected Calcium 9.6 Phosphorus 3.2 Magnesium 1.8 Total Bilirubin 0.4 AST 16 ALT 33 Alkaline Phosphatase 108 Total Protein 6.4 Albumin 3.3 L Globulin 3.1 Albumin/Globulin Ratio 1.1 L Quality Measures Quality Measures VTE prophylaxis Advance care planning discussed with:: patient Assessment & Plan Assessment Current Active Medications: Generic Name Dose Route Start Last Admin Trade Name Freq PRN Reason Stop Dose Admin Acetaminophen 650 mg 04/01/25 18:27 Acetaminophen 325 Mg Tablet PO 05/01/25 18:26 Q6H PRN Fever >101.5 Hydromorphone HCl 0.5 mg 04/01/25 18:27 04/04/25 01:54 Hydromorphone Inj 2 Mg/Ml Vial IVP 04/06/25 18:26 0.5 mg Q2H PRN Administration PAIN SCALE 4-10(Mod-Sev Piperacillin Sod/Tazobactam 100 mls @ 25 mls/hr 04/03/25 14:00 04/04/25 05:58 Sod 4.5 gm/ Sodium Chloride IV 04/10/25 13:59 25 mls/hr Q8HR GRANT Administration Protocol Ondansetron HCl 4 mg 04/01/25 18:27 04/02/25 05:51 Ondansetron Inj 2 Mg/Ml Inj 2 Ml IVP 05/01/25 18:26 4 mg Q6H PRN Administration NAUSEA OR VOMITING Protocol Plan 74 year old female with history of hypertension, COPD, CKD, diverticulitis s/p diverting colostomy performed 09/2023 at [facility] by Dr. Armando and hospitalized here 11/17-11/20/2024 for diverticular abscess s/p percutaneous drainage by surgeon Dr. Soto on 11/19/2024 presents to the ED for evaluation of intractable LLQ abdominal pain x2 days. Abscess + diverticulitis found on ED CT Ab/Pelv, admitted for planned drainage. #Acute Diverticulitis #Colonic Abscess #Leukocytosis #UTI #Transaminitis Pt presents with long history of recurrent sigmoid diverticulitis, plan for surgical intervention following urology consultation in June. Most recently pt reports x2 days intractable LLQ Abdominal pain, fever, n/v, and poor oral intake that she characterizes as similar to previous diverticulitis flare-ups. CT Ab/Pelvis 04/01 showed acute sigmoid diverticulitis and thick-walled probable abscess below sigmoid colon 6.2x6.5cm which appears to communicate with bladder. Notably CT from previous visit for percutaneous drainage showed the same abscess ~3cm in diameter at that time. WBCs 20.5 in ED, 12.0 today and downtrending steadily. 04/02/25 CT-guided drainage of abscess was successful, 200cc purulent fluid drained, catheter placed. Catheter today draining well however drainage is sanguinous and purulent. Additionally yesterdays pt's LFTs are elevated, however today have normalized. Only ALP is still mildly elevated at 117 from 147 yesterday. Most likely benign and 2/2 ciprofloxacin initiation, improving. UA 04/01 concerning for UTI though she reports no dysuria today. - Appreciate consult general surgery Dr. Howell, per recs no surgical intervention necessary this admission. Will follow the patient as outpt - S/p IV Flagyl (04/01-04/03), IV Ciprofloxacin (04/02), IV Rocephin (04/03). Currently on IV Zosyn 4.5gm (04/03-) - Blood cx negative so far. Abscess cx show GNR, identity/susceptibilities pending - Monitor labs in AM. Plan for DC once susceptibilities are available and repeat CT show completed drainage #KAILA (improving) Creatinine 2.1, BUN 31 in ED. Pt has CKD and notes previous BUNs in range of 20s-30s, unaware of baseline creatinine. Cr today 1.8, BUN normal 18. -Monitor CMP in AM #COPD Not in exacerbation currently. Pt is saturating well on room air, not currently endorsing respiratory symptoms. Lungs CTA b/l. -Monitor Hospital Management Disposition: Pending culture identification Diet: regular DVT prophylaxis: SCDs Code: DNR ----- Plan discussed with attending physician Dr. Geovany Muñoz, Medical Student [facility] Attending Provider Attestation/Addendum I have discussed and was present for the essential components of the history, physical examination, diagnosis, and treatment plan with the resident. I agree with the patient's care as documented by the resident and amended herein by me. Huy Armenta DO. Although this document has been carefully reviewed, there may still be some phonetic and other typographical errors. These errors are purely grammatical due to imperfections in the software program and should not be construed in any way to compromise the substance of the patient's medical care during this visit.
--- NOTE | 2025-04-04 10:51 | PC.SS ---
rounding note: Drain in place. Repeat CT scan. Patient remains on antibiotics.
--- NOTE | 2025-04-04 13:45 | PD.SURPROG ---
Documentation for date of: 04/04/25 Subjective Subjective Narrative: Patient is seen and examined. Her pain is improving. She is tolerating diet and colostomy is functioning Exam Vital Signs Temp Pulse Resp BP Pulse Ox O2 Del Method O2 Flow Rate 97.4 F 78 18 116/63 95 Room Air 3 04/04/25 12:00 04/04/25 12:00 04/04/25 12:00 04/04/25 12:00 04/04/25 12:00 04/04/25 12:00 04/02/25 14:50 Constitutional Constitutional: no acute distress Routine Abdominal Exam Comments: Abdomen is soft and nondistended. Colostomy is functioning. She has minimal tenderness to deep palpation over left lower quadrant and suprapubic region Assessment & Plan Assessment Additional comments: Status post percutaneous drainage of peridiverticular abscess. Still has significant drainage, 125 cc overnight Plan Continue IV antibiotics, repeat CT scan when drainage is less than 20 cc over 24 hours
[2025-04-05] VITALS: BP 130/77; PULSE 94; RESP 18; TEMP 36.3; O2SAT 95
[2025-04-05 04:00] VITALS: BP 148/81; PULSE 74; RESP 17; TEMP 36.1; O2SAT 96
[2025-04-05] MEDS: PIPER/TAZO INJ 4.5 GM in SODIUM CHLORIDE 0.9% (POP) 100 ML IV ×3 (05:37→21:33)
[2025-04-05] MEDS: HYDROmorphone INJ 2 MG/ML VIAL 0.5 MG IVP ×3 (06:39→22:38)
[2025-04-05 08:00] VITALS: BP 137/66; PULSE 75; RESP 18; TEMP 36.2; O2SAT 94
[2025-04-05 09:17] LABS: Basophils # (Auto) 0.1 Thou/mm3 (0.0-0.2); Basophils % (Auto) 1 % (0-2.5); Eosinophils # (Auto) 0.1 Thou/mm3 (0.0-0.5); Eosinophils % (Auto) 1 % (0-10); Hematocrit 34.3 % (36.0-46.0); Hemoglobin 11.4 g/dL (12.0-16.0); Immature Granulocytes Auto 0.10 Thou/mm3 (0.00-0.00); Lymphocytes # (Auto) 1.6 Thou/mm3 (1.0-4.8); Lymphocytes % (Auto) 16 % (10-50); Mean Corpuscular HGB Conc 33.2 g/dl (31.0-37.0); Mean Corpuscular Hemoglobin 29.5 pg (25.0-35.0); Mean Corpuscular Volume 89 fL (80-100); Monocytes # (Auto) 0.7 Thou/mm3 (0.0-0.8); Monocytes % (Auto) 6 % (0-12); Neutrophils # (Auto) 7.7 Thou/mm3 (1.8-7.7); Neutrophils % (Auto) 76 % (37-80); Nucleated Red Blood Cell # 0.00 Thou/mm3 (0.00-0.00); Nucleated Red Blood Cell % 0 /100 WBC (0); Platelet Count 308 Thou/mm3 (140-440); RDW Standard Deviation 41.6 fL (36.4-46.3); Red Blood Count 3.87 Miln/mm3 (4.00-5.20); White Blood Count 10.3 Thou/mm3 (3.6-11.0)
[2025-04-05 10:15] LABS: Alanine Aminotransferase 23 U/L (10-49); Albumin, Serum 3.5 gm/dL (3.4-4.8); Albumin/Globulin Ratio 1.2 (1.2-2.2); Alkaline Phosphatase 128 U/L (46-116); Anion Gap 10 (7-16); Aspartate Amino Transferase 13 U/L (0-34); BUN/Creatinine Ratio 11 Ratio (12-20); Bilirubin,Total 0.4 mg/dL (0.3-1.2); Blood Urea Nitrogen 17 mg/dL (9-23); Calcium 8.8 mg/dL (8.3-10.6); Calcium (Corrected) 9.2 mg/dL (8.5-10.1); Carbon Dioxide 25.1 mMol/L (20.0-31.0); Chloride 111 mMol/L (98-107); Creatinine (Component) 1.6 mg/dL (0.6-1.3); Estimated Creatinine Clearance 26.3 mL/min (>60); Globulin 3.0 gm/dL (2.3-3.5); Glucose 187 mg/dL (74-106); Magnesium 1.9 mg/dL (1.6-2.6); Osmolality,Calculated 297 (275-295); Phosphorous 3.0 mg/dL (2.4-5.1); Potassium 3.8 mMol/L (3.4-5.1); Sodium 146 mMol/L (136-145); Total Protein 6.5 gm/dL (5.7-8.2); eGFR 34 See Note
[2025-04-05 12:00] VITALS: BP 141/77; PULSE 78; RESP 18; TEMP 36.3; O2SAT 96
--- NOTE | 2025-04-05 12:44 | ESPR_ITS ---
<Statement entered by Kin Drummond MD - 04/05/25 16:25> Patient was seen and evaluated at bedside this morning. No acute overnight events. Patient's culture came back for E. coli and the abscess is sensitive to ceftriaxone, but will keep Zosyn for now. Patient's abscess drainage max of had around 20 cc this morning, will do abdominal CT on Monday as per general surgery. Otherwise no new complaints at this time. General: A/O x3, no acute distress Eyes: PERRL, EOMI. Anicteric, vision grossly intact. Ears: No ear pain, no ear discharge, Hearing grossly intact. Nose: No nasal discharge. Mouth/Throat: Dry mucous membranes, no redness, no lesions. Neck: Neck supple, non-tender, no cervical lymphadenopathy. Lungs: Clear LEAH to auscultation and percussion, No accessory muscle use. Cardio: Normal S1/S2, regular rhythm, no murmurs, no JVD or carotid bruits. Abdomen: Soft, tender in LLQ with drainage in place and purulent/brownish drainage, colostomy bag with liquid stool w/o blood, catheter site clean with no erythema, no palpable masses, peristalsis present, no guarding or rebound. Extremities: Symmetrical, no significant deformities, no peripheral edema , non-tender, peripheral pulses presents. Skin: No rashes, no lesions, warm to touch. Neuro: No focal neurological deficits. motor and sensory intact Psych: Cooperative, appropriate mood and effect. I have reviewed the note and agree with the medical student's assessment & plan with exceptions as below. I have personally reviewed labs, imaging, home meds/prior records, examined the patient, formulated and discussed management plan with my attending Kin Drummond PGY2 Disclaimer: Even though this this note was dictated by speech recognition and even though it was carefully revised there may still be minor errors in medical nurse due to voice recognition software. Documentation for date of: 04/05/25 Subjective Subjective Interval history: Spoke at length with patient and nurse for updates this AM. Overnight no acute events. Overnight abscess catheter drained very little however this morning drained 50-75ccs of dark brown fluid with some purulence. Colostomy bag is intact, filled with material. This morning she reports ongoing abdominal pain, denies SOB, chest pain, headache, fever/chills, n/v/d. Exam Vital Signs Temp Pulse Resp BP Pulse Ox O2 Del Method O2 Flow Rate 97.2 F 75 18 137/66 H 94 L Room Air 3 04/05/25 08:00 04/05/25 08:00 04/05/25 08:00 04/05/25 08:00 04/05/25 08:00 04/05/25 08:00 04/02/25 14:50 Narrative Exam General: A/O x3, no acute distress Eyes: PERRL, EOMI. Anicteric, vision grossly intact. Ears: No ear pain, no ear discharge, Hearing grossly intact. Nose: No nasal discharge. Mouth/Throat: Moist mucous membranes, no redness, no lesions. Neck: Neck supple, non-tender, no cervical lymphadenopathy. Lungs: Clear to auscultation bilaterally, no rales/rhonchi/wheezes, no accessory muscle use. Cardio: Normal S1/S2, regular rate and rhythm, no murmurs, no JVD Abdomen: Soft, TTP LLQ w/ scar from previous percutaneous drainage of abscess. Colostomy bag draining well, dry and intact. Drainage catheter in place, nonerythematous, dressing dry and intact. No palpable masses, peristalsis present, no guarding or rebound. Extremities: Symmetrical, no significant deformities, no peripheral edema , non-tender, peripheral pulses presents. Skin: No rashes, no lesions, warm to touch. Neuro: No focal neurological deficits. motor and sensory intact Psych: Cooperative, appropriate mood and effect. Objective Labs 04/05/25 08:50 04/05/25 08:50 Labs: Laboratory Results - last 24 hr 04/05/25 08:50 WBC 10.3 RBC 3.87 L Hgb 11.4 L Hct 34.3 L MCV 89 MCH 29.5 MCHC 33.2 RDW Std Deviation 41.6 Plt Count 308 D Neut % (Auto) 76 Lymph % (Auto) 16 [place] % (Auto) 6 Eos % (Auto) 1 Baso % (Auto) 1 Neut # (Auto) 7.7 Lymph # (Auto) 1.6 [place] # (Auto) 0.7 Eos # (Auto) 0.1 Baso # (Auto) 0.1 Immature Gran # (Auto) 0.10 H Absolute Nucleated RBC 0.00 Immature Gran % 1 H Nucleated RBC % 0 Sodium 146 H Potassium 3.8 Chloride 111 H Carbon Dioxide 25.1 Anion Gap 10 BUN 17 Creatinine 1.6 H Estim Creat Clear Calc 26.3 L eGFR 34 L BUN/Creatinine Ratio 11 L Glucose 187 H D Calculated Osmolality 297 H Calcium 8.8 Corrected Calcium 9.2 Phosphorus 3.0 Magnesium 1.9 Total Bilirubin 0.4 AST 13 ALT 23 Alkaline Phosphatase 128 H D Total Protein 6.5 Albumin 3.5 Globulin 3.0 Albumin/Globulin Ratio 1.2 Quality Measures Quality Measures VTE prophylaxis Advance care planning discussed with:: patient Assessment & Plan Assessment Current Active Medications: Generic Name Dose Route Start Last Admin Trade Name Freq PRN Reason Stop Dose Admin Acetaminophen 650 mg 04/01/25 18:27 Acetaminophen 325 Mg Tablet PO 05/01/25 18:26 Q6H PRN Fever >101.5 Hydromorphone HCl 0.5 mg 04/01/25 18:27 04/05/25 06:39 Hydromorphone Inj 2 Mg/Ml Vial IVP 04/06/25 18:26 0.5 mg Q2H PRN Administration PAIN SCALE 4-10(Mod-Sev Piperacillin Sod/Tazobactam 100 mls @ 25 mls/hr 04/03/25 14:00 04/05/25 05:37 Sod 4.5 gm/ Sodium Chloride IV 04/10/25 13:59 25 mls/hr Q8HR GRANT Administration Protocol Ondansetron HCl 4 mg 04/01/25 18:27 04/02/25 05:51 Ondansetron Inj 2 Mg/Ml Inj 2 Ml IVP 05/01/25 18:26 4 mg Q6H PRN Administration NAUSEA OR VOMITING Protocol Plan 74 year old female with history of hypertension, COPD, CKD, diverticulitis s/p diverting colostomy performed 09/2023 at [facility] by Dr. Armando and hospitalized here 11/17-11/20/2024 for diverticular abscess s/p percutaneous drainage by surgeon Dr. Soto on 11/19/2024 presents to the ED for evaluation of intractable LLQ abdominal pain x2 days. Abscess + diverticulitis found on ED CT Ab/Pelv, admitted for planned drainage. #Acute Diverticulitis #Colonic Abscess #Leukocytosis #UTI #Transaminitis (resolved) Pt presents with long history of recurrent sigmoid diverticulitis, plan for surgical intervention following urology consultation in June. Most recently pt reports x2 days intractable LLQ Abdominal pain, fever, n/v, and poor oral intake that she characterizes as similar to previous diverticulitis flare-ups. CT Ab/Pelvis 04/01 showed acute sigmoid diverticulitis and thick-walled probable abscess below sigmoid colon 6.2x6.5cm which appears to communicate with bladder. Notably CT from previous visit for percutaneous drainage showed the same abscess ~3cm in diameter at that time. WBCs 20.5 in ED, WNL today. 04/02/25 CT-guided drainage of abscess was successful, 200cc purulent fluid drained, catheter placed. Catheter today draining well, drainage is dark brown and purulent. LFTs today WNL. UA 04/01 concerning for UTI though she reports no dysuria today. - Appreciate consult general surgery Dr. Howell, per recs no surgical intervention necessary this admission. Will follow the patient as outpt, recommends repeat CT once drainage is <20cc in 24 hour period - S/p IV Flagyl (04/01-04/03), IV Ciprofloxacin (04/02), IV Rocephin (04/03). Currently on IV Zosyn 4.5gm (04/03-) - Blood cx negative so far. Abscess cx show EColi - Monitor labs in AM #KAILA (improving) Creatinine 2.1, BUN 31 in ED. Pt has CKD and notes previous BUNs in range of 20s-30s, unaware of baseline creatinine. Cr today 1.6, BUN normal 17. -Monitor CMP in AM #COPD Not in exacerbation currently. Pt is saturating well on room air, not currently endorsing respiratory symptoms. Lungs CTA b/l. -Monitor Hospital Management Disposition: Pending drainage <20cc in 24 hour period Diet: regular DVT prophylaxis: SCDs Code: DNR ----- Plan discussed with attending physician Dr. Geovany Muñoz, Medical Student [employer] Attending Provider Attestation/Addendum I have discussed and was present for the essential components of the history, physical examination, diagnosis, and treatment plan with the resident. I agree with the patient's care as documented by the resident and amended herein by me. Huy Armenta DO. Although this document has been carefully reviewed, there may still be some phonetic and other typographical errors. These errors are purely grammatical due to imperfections in the software program and should not be construed in any way to compromise the substance of the patient's medical care during this visit. Patient seen and evaluated this AM. Vital signs stable, patient afebrile overnight, drain still outputting copious fluids, dark brown material, possibly fecal material and pus. Labs labs significant for stable hemoglobin of 11.4, sodium 146, chloride 111, downtrending creatinine to 1.6 today. Abscess cultures demonstrating E. coli resistant to ciprofloxacin however sensitive to Zosyn, urine cultures demonstrating E. coli greater than 100,000 CFU which is indeterminate for ciprofloxacin however also sensitive to Zosyn which we are continuing. Per general surgery recommendations, will get repeat CT scan likely on Monday with IV contrast. Will continue to monitor closely, the plan was explained to the patient. General surgery consulted, appreciate recommendations.
--- NOTE | 2025-04-05 14:24 | PD.SURPROG ---
Documentation for date of: 04/05/25 Subjective Subjective Narrative: Patient is seen and examined. She is resting comfortably, her pain is improving. She is tolerating diet well Exam Vital Signs Temp Pulse Resp BP Pulse Ox O2 Del Method O2 Flow Rate 97.3 F 78 18 141/77 H 96 Room Air 3 04/05/25 12:00 04/05/25 12:00 04/05/25 12:00 04/05/25 12:00 04/05/25 12:00 04/05/25 12:00 04/02/25 14:50 Constitutional Constitutional: no acute distress Routine Abdominal Exam Comments: Abdomen is soft and nondistended. Colostomy is present and productive. Percutaneous drainage is in place, approximately 75 cc purulent output Assessment & Plan Assessment Additional comments: Status post percutaneous drainage of peridiverticular abscess Plan Continue IV antibiotics. Repeat CT scan with IV contrast on Monday
[2025-04-05 16:00] VITALS: BP 150/72; PULSE 77; RESP 18; TEMP 36.2; O2SAT 96
--- NOTE | 2025-04-05 16:01 | PC.SS ---
Rounding note: Continue IV antibiotics. Repeat CT scan with IV contrast on Monday. Output goal is to be less than 10-20. Discharging home when medically clear.
[2025-04-05 20:00] VITALS: BP 142/82; PULSE 95; RESP 18; TEMP 36.3; O2SAT 96
[2025-04-06] VITALS: BP 143/70; PULSE 87; RESP 17; TEMP 36.4; O2SAT 95
[2025-04-06 04:00] VITALS: BP 142/86; PULSE 95; RESP 18; TEMP 36.3; O2SAT 96
[2025-04-06] MEDS: HYDROmorphone INJ 2 MG/ML VIAL 0.5 MG IVP ×3 (04:04→20:06)
[2025-04-06] MEDS: PIPER/TAZO INJ 4.5 GM in SODIUM CHLORIDE 0.9% (POP) 100 ML IV ×3 (05:17→21:05)
[2025-04-06 05:57] LABS: Basophils # (Auto) 0.1 Thou/mm3 (0.0-0.2); Basophils % (Auto) 1 % (0-2.5); Eosinophils # (Auto) 0.1 Thou/mm3 (0.0-0.5); Eosinophils % (Auto) 1 % (0-10); Hematocrit 32.5 % (36.0-46.0); Hemoglobin 10.7 g/dL (12.0-16.0); Immature Granulocytes Auto 0.13 Thou/mm3 (0.00-0.00); Lymphocytes # (Auto) 2.2 Thou/mm3 (1.0-4.8); Lymphocytes % (Auto) 25 % (10-50); Mean Corpuscular HGB Conc 32.9 g/dl (31.0-37.0); Mean Corpuscular Hemoglobin 29.1 pg (25.0-35.0); Mean Corpuscular Volume 88 fL (80-100); Monocytes # (Auto) 1.0 Thou/mm3 (0.0-0.8); Monocytes % (Auto) 11 % (0-12); Neutrophils # (Auto) 5.6 Thou/mm3 (1.8-7.7); Neutrophils % (Auto) 62 % (37-80); Nucleated Red Blood Cell # 0.00 Thou/mm3 (0.00-0.00); Nucleated Red Blood Cell % 0 /100 WBC (0); Platelet Count 304 Thou/mm3 (140-440); RDW Standard Deviation 41.0 fL (36.4-46.3); Red Blood Count 3.68 Miln/mm3 (4.00-5.20); White Blood Count 9.1 Thou/mm3 (3.6-11.0)
[2025-04-06 06:32] LABS: Alanine Aminotransferase 17 U/L (10-49); Albumin, Serum 3.3 gm/dL (3.4-4.8); Albumin/Globulin Ratio 1.1 (1.2-2.2); Alkaline Phosphatase 120 U/L (46-116); Anion Gap 13 (7-16); Aspartate Amino Transferase 12 U/L (0-34); BUN/Creatinine Ratio 11 Ratio (12-20); Bilirubin,Total 0.4 mg/dL (0.3-1.2); Blood Urea Nitrogen 16 mg/dL (9-23); Calcium 8.6 mg/dL (8.3-10.6); Calcium (Corrected) 9.2 mg/dL (8.5-10.1); Carbon Dioxide 23.2 mMol/L (20.0-31.0); Chloride 111 mMol/L (98-107); Creatinine (Component) 1.5 mg/dL (0.6-1.3); Estimated Creatinine Clearance 28.0 mL/min (>60); Globulin 2.9 gm/dL (2.3-3.5); Glucose 96 mg/dL (74-106); Osmolality,Calculated 293 (275-295); Potassium 3.6 mMol/L (3.4-5.1); Sodium 147 mMol/L (136-145); Total Protein 6.2 gm/dL (5.7-8.2); eGFR 37 See Note
[2025-04-06 08:00] VITALS: BP 164/88; PULSE 89; RESP 17; TEMP 36.3; O2SAT 94
[2025-04-06 12:00] VITALS: BP 155/98; PULSE 86; RESP 17; TEMP 36.1; O2SAT 95
[2025-04-06] MEDS: RINGERS LACTATED 1000 ML 1,000 ML 100 ML IV (12:27)
--- NOTE | 2025-04-06 15:01 | PC.SS ---
Rounding note: Has drain in place, repeat CT pending. Discharging home when medically clear.
--- NOTE | 2025-04-06 15:03 | ESPR_ITS ---
Documentation for date of: 04/06/25 Subjective Subjective Interval history: Patient evaluated at bedside, overnight events and labs reviewed, and noted 50 mL purulent brownish discharge in the drainage bag. Patient complaining of pain which is worse with movement or repositioning. Is receiving IV Dilaudid for pain. Patient reported being comfortable after receiving pain medications and in between doses as long as she does not move. Will transition to p.o. pain medications [place], will keep IV Dilaudid for breakthrough pain. Pending repeat CT abdomen pelvis and general surgeon Dr Nation's recommendations. Exam Vital Signs Temp Pulse Resp BP Pulse Ox O2 Del Method O2 Flow Rate 97.0 F 86 17 155/98 H 95 Room Air 3 04/06/25 12:00 04/06/25 12:00 04/06/25 12:00 04/06/25 12:00 04/06/25 12:00 04/06/25 12:00 04/02/25 14:50 Narrative Exam General: A/O x3, in mild distress due to pain Eyes: PERRL, EOMI. Anicteric, vision grossly intact. Ears: No ear pain, no ear discharge, Hearing grossly intact. Nose: No nasal discharge. Mouth/Throat: Moist mucous membranes, no redness, no lesions. Neck: Neck supple, non-tender, no cervical lymphadenopathy. Lungs: Clear to auscultation bilaterally, no rales/rhonchi/wheezes, no accessory muscle use. Cardio: Normal S1/S2, regular rate and rhythm, no murmurs, no JVD Abdomen: Soft, TTP LLQ w/ scar from previous percutaneous drainage of abscess. Colostomy bag draining well, dry and intact. Drainage catheter in place, nonerythematous, dressing dry and intact. No palpable masses, peristalsis present, no guarding or rebound. Extremities: Symmetrical, no significant deformities, no peripheral edema , non-tender, peripheral pulses presents. Skin: No rashes, no lesions, warm to touch. Neuro: No focal neurological deficits. motor and sensory intact Psych: Cooperative, appropriate mood and effect. Objective Labs 04/07/25 05:17 04/07/25 05:17 Labs: Laboratory Results - last 24 hr 04/06/25 05:03 WBC 9.1 RBC 3.68 L Hgb 10.7 L Hct 32.5 L MCV 88 MCH 29.1 MCHC 32.9 RDW Std Deviation 41.0 Plt Count 304 Neut % (Auto) 62 Lymph % (Auto) 25 [place] % (Auto) 11 Eos % (Auto) 1 Baso % (Auto) 1 Neut # (Auto) 5.6 Lymph # (Auto) 2.2 [place] # (Auto) 1.0 H Eos # (Auto) 0.1 Baso # (Auto) 0.1 Immature Gran # (Auto) 0.13 H Absolute Nucleated RBC 0.00 Immature Gran % 1 H Nucleated RBC % 0 Sodium 147 H Potassium 3.6 Chloride 111 H Carbon Dioxide 23.2 Anion Gap 13 BUN 16 Creatinine 1.5 H Estim Creat Clear Calc 28.0 L eGFR 37 L BUN/Creatinine Ratio 11 L Glucose 96 D Calculated Osmolality 293 Calcium 8.6 Corrected Calcium 9.2 Total Bilirubin 0.4 AST 12 ALT 17 Alkaline Phosphatase 120 H Total Protein 6.2 Albumin 3.3 L Globulin 2.9 Albumin/Globulin Ratio 1.1 L Quality Measures Quality Measures VTE prophylaxis Advance care planning discussed with:: patient Assessment & Plan Assessment Current Active Medications: Generic Name Dose Route Start Last Admin Trade Name Freq PRN Reason Stop Dose Admin Acetaminophen 650 mg 04/01/25 18:27 Acetaminophen 325 Mg Tablet PO 05/01/25 18:26 Q6H PRN Fever >101.5 Hydrocodone Bitart/Acetaminophen 1 tab 04/06/25 12:15 04/06/25 12:43 Hydrocodone/Apap 10/325 Tab PO 04/11/25 12:14 1 tab Q6HR PRN Administration PAIN SCALE 6-10(Mod-Sev Hydromorphone HCl 0.5 mg 04/06/25 12:16 Hydromorphone Inj 2 Mg/Ml Vial IVP 04/11/25 12:10 Q4HR PRN BREAKTHROUGH PAIN (SEVERE) Protocol Piperacillin Sod/Tazobactam 100 mls @ 25 mls/hr 04/03/25 14:00 04/06/25 13:57 Sod 4.5 gm/ Sodium Chloride IV 04/10/25 13:59 25 mls/hr Q8HR GRANT Administration Protocol Lactated Ringer's 1,000 mls @ 100 mls/hr 04/06/25 12:30 04/06/25 12:27 Lactated Ringers IV 04/06/25 22:29 100 mls/hr .Q10H GRANT Administration Ondansetron HCl 4 mg 04/01/25 18:27 04/02/25 05:51 Ondansetron Inj 2 Mg/Ml Inj 2 Ml IVP 05/01/25 18:26 4 mg Q6H PRN Administration NAUSEA OR VOMITING Protocol Plan 74 year old female with history of hypertension, COPD, CKD, diverticulitis s/p diverting colostomy performed 09/2023 at [facility] by Dr. Armando and hospitalized here 11/17-11/20/2024 for diverticular abscess s/p percutaneous drainage by surgeon Dr. Soto on 11/19/2024 presents to the ED for evaluation of intractable LLQ abdominal pain x2 days. Abscess + diverticulitis found on ED CT Ab/Pelv, admitted for planned drainage. #Acute Diverticulitis with Abscess #Colonic Abscess s/p percutenoeus drainage #Transaminitis (resolved) Pt presents with long history of recurrent sigmoid diverticulitis, plan for surgical intervention following urology consultation in June. Most recently pt reports x2 days intractable LLQ Abdominal pain, fever, n/v, and poor oral intake that she characterizes as similar to previous diverticulitis flare-ups. CT Ab/Pelvis 04/01 showed acute sigmoid diverticulitis and thick-walled probable abscess below sigmoid colon 6.2x6.5cm which appears to communicate with bladder. Notably CT from previous visit for percutaneous drainage showed the same abscess ~3cm in diameter at that time, 04/02/25 CT-guided drainage of abscess was successful, 200cc purulent fluid drained, catheter placed. Catheter today draining well, drainage is dark brown and purulent. LFTs today WNL. - Appreciate consult general surgery Dr. Howell, per recs no surgical intervention necessary this admission. Will follow the patient as outpt, recommends repeat CT once drainage is <20cc in 24 hour period - S/p IV Flagyl (04/01-04/03), IV Ciprofloxacin (04/02), IV Rocephin (04/03). Currently on IV Zosyn 4.5gm (04/03-) - Blood cx negative so far. Abscess cx show EColi sensitive to zosyn #UTI UA 04/01 concerning for UTI though she reports no dysuria today. Urine culture grew E. coli, sensitive to Zosyn. ? Continue IV Zosyn #KAILA (improving) Creatinine 2.1, BUN 31 in ED. Pt has CKD and notes previous BUNs in range of 20s-30s, unaware of baseline creatinine. Cr today 1.6, BUN normal 17. -Monitor CMP in AM #COPD Not in exacerbation currently. Pt is saturating well on room air, not currently endorsing respiratory symptoms. Lungs CTA b/l. -Monitor Hospital Management Disposition: Repeat CT scan with IV contrast scheduled for tomorrow, anticipate discharge tomorrow following general surgery recommendations Diet: regular DVT prophylaxis: SCDs Code: DNR ----- Plan discussed with attending physician Dr. Geovany Michelle PGY3 Attending Provider Attestation/Addendum I have discussed and was present for the essential components of the history, physical examination, diagnosis, and treatment plan with the resident. I agree with the patient's care as documented by the resident and amended herein by me. Huy Armenta, DO. Although this document has been carefully reviewed, there may still be some phonetic and other typographical errors. These errors are purely grammatical due to imperfections in the software program and should not be construed in any way to compromise the substance of the patient's medical care during this visit.
--- NOTE | 2025-04-06 15:14 | PC.SS ---
Rounding note: Patient has drain in place, Repeat CT pending. Discharging home when medically clear.
[2025-04-06 16:00] VITALS: BP 138/85; PULSE 79; RESP 17; TEMP 36.2; O2SAT 96
[2025-04-06 20:00] VITALS: BP 150/84; PULSE 79; RESP 19; TEMP 36.5; O2SAT 97
[2025-04-07] VITALS (8 sets, daily range): BP systolic 137–167; BP diastolic 75–94; PULSE 67–86; RESP 16–19; TEMP 36–36.2; O2SAT 96
[2025-04-07] MEDS: PIPER/TAZO INJ 4.5 GM in SODIUM CHLORIDE 0.9% (POP) 100 ML IV ×3 (05:17→21:38)
[2025-04-07 05:43] LABS: Basophils # (Auto) 0.1 Thou/mm3 (0.0-0.2); Basophils % (Auto) 1 % (0-2.5); Eosinophils # (Auto) 0.1 Thou/mm3 (0.0-0.5); Eosinophils % (Auto) 1 % (0-10); Hematocrit 32.8 % (36.0-46.0); Hemoglobin 10.8 g/dL (12.0-16.0); Immature Granulocytes Auto 0.14 Thou/mm3 (0.00-0.00); Lymphocytes # (Auto) 2.6 Thou/mm3 (1.0-4.8); Lymphocytes % (Auto) 29 % (10-50); Mean Corpuscular HGB Conc 32.9 g/dl (31.0-37.0); Mean Corpuscular Hemoglobin 28.9 pg (25.0-35.0); Mean Corpuscular Volume 88 fL (80-100); Monocytes # (Auto) 0.9 Thou/mm3 (0.0-0.8); Monocytes % (Auto) 10 % (0-12); Neutrophils # (Auto) 5.2 Thou/mm3 (1.8-7.7); Neutrophils % (Auto) 58 % (37-80); Nucleated Red Blood Cell # 0.00 Thou/mm3 (0.00-0.00); Nucleated Red Blood Cell % 0 /100 WBC (0); Platelet Count 304 Thou/mm3 (140-440); RDW Standard Deviation 40.3 fL (36.4-46.3); Red Blood Count 3.74 Miln/mm3 (4.00-5.20); White Blood Count 9.0 Thou/mm3 (3.6-11.0)
--- NOTE | 2025-04-07 06:00 | XR_ITS ---
Examination: CT abdomen with intravenous contrast CT pelvis with intravenous contrast 2-D coronal reconstructions 2-D sagittal reconstructions Date and time of exam: April 07, 2025, 0802 hours COMPARISON: April 01, 2025 INDICATIONS: Diagnosis acute sigmoid colon diverticulitis, abscess below the sigmoid colon 6.2 x 6.5 cm which appears to communicate with the urinary bladder on CT examination January 30, 2025. CTDI: vol (mGy) 20.9 DLP: (mGycm) 755 Technique: Multiple axial sections of the abdomen and pelvis have been obtained. 64 slice high-resolution scanner used. 3 mm axial sections have been obtained, post intravenous injection 30 cc [id number] 2-D sagittal, coronal reconstructions obtained. Low dose protocols were performed. One or more of the following dose reduction techniques were used; automated exposure control, adjustment of the mA and/or KV according to patient size, use of iterative reconstruction technique. Findings: No focal liver or splenic lesion Absent gallbladder No common bile duct stones. No pancreatic mass. No renal or ureteral calculi, no hydronephrosis Aorta normal size Absent appendix Catheter in the pelvic abscess which has significantly decreased in size compared to the prior study Interval apparent surgical defect anterior pelvis through the pelvic wall which appears to extend into the colon Thick-walled urinary bladder IMPRESSION: Catheter in the pelvic abscess which has significantly decreased in size Significant thickening of the urinary bladder wall Apparent postsurgical changes in the anterior left pelvis
[2025-04-07 06:05] LABS: Alanine Aminotransferase 25 U/L (10-49); Albumin, Serum 3.5 gm/dL (3.4-4.8); Albumin/Globulin Ratio 1.1 (1.2-2.2); Alkaline Phosphatase 117 U/L (46-116); Anion Gap 11 (7-16); Aspartate Amino Transferase 29 U/L (0-34); BUN/Creatinine Ratio 5 Ratio (12-20); Bilirubin,Total 0.6 mg/dL (0.3-1.2); Blood Urea Nitrogen 7 mg/dL (9-23); Calcium 9.2 mg/dL (8.3-10.6); Calcium (Corrected) 9.6 mg/dL (8.5-10.1); Carbon Dioxide 25.2 mMol/L (20.0-31.0); Chloride 110 mMol/L (98-107); Creatinine (Component) 1.4 mg/dL (0.6-1.3); Estimated Creatinine Clearance 30.0 mL/min (>60); Globulin 3.1 gm/dL (2.3-3.5); Glucose 92 mg/dL (74-106); Osmolality,Calculated 288 (275-295); Potassium 3.8 mMol/L (3.4-5.1); Sodium 146 mMol/L (136-145); Total Protein 6.6 gm/dL (5.7-8.2); eGFR 40 See Note
[2025-04-07] MEDS: HYDROmorphone INJ 2 MG/ML VIAL 0.5 MG IVP ×3 (06:17→17:24)
--- NOTE | 2025-04-07 07:50 | PC.NURSE ---
PT TO CT VIA WHEELCHAIR, PT ALERT AND ORIENTED X4.
--- NOTE | 2025-04-07 08:16 | PC.NURSE ---
PATIENT BACK IN ROOM ALERT AND ORIENTED X4.
--- NOTE | 2025-04-07 08:19 | PC.NURSE ---
DR. Aleman MADE AWARE OF PTS BP 161/83. RECOMMENDED TO START PATEINTS HOME MEDICATIONS. CT WAS TAKEN THIS MORNING, TO REVIEW.
[2025-04-07 10:27] LABS: Magnesium 1.7 mg/dL (1.6-2.6); Phosphorous 3.6 mg/dL (2.4-5.1)
[2025-04-07] MEDS: LIDOCAINE HCL 1% 20 ML VIAL 10 ML INFL (11:57)
--- NOTE | 2025-04-07 13:20 | PC.NURSE ---
ALMA NIX NOTIFIED THAT PER RADIOLOGIST DR GOLD, WILL REMOVE DRAIN ONCE DRAINAGE IS LESS THAN 10MLS/24HRS.
--- NOTE | 2025-04-07 13:34 | PC.NURSE ---
NOTIFIED DR ASENCIO AND DR DOWD THAT RADIOLOGIST DR GOLD WILL REMOVE ABSCESS DRAIN ONCE DRAINAGE IS LESS THAN 10CC/24HR.
--- NOTE | 2025-04-07 13:42 | ESPR_ITS ---
<Statement entered by Kin Drummond MD - 04/07/25 14:55> Patient was seen and examined at bedside this morning. No acute overnight events. This morning patient was a lot more and discomfort in the lower left lower quadrant and she had a bulging mass laterally to where the drainage catheter was placed. General surgeon saw this and stated that it was the abscess going through her skin and was going to do an I&D. Patient is still draining around 40 cc in the back today of the drainage. No fevers or spikes in WBC at this time. Creatinine is downtrending to 1 seems to be the patient's baseline. No other complaints at this time. BP has been slightly elevated therefore start carvedilol 12.5mg twice daily. Expect possible discharge when drainage output is less than 10 cc/h since taken out. I have reviewed the note and agree with the resident's assessment & plan with exceptions as above. I have personally reviewed labs, imaging, home meds/prior records, examined the patient, formulated and discussed management plan with my attending Kin Drummond PGY2 Disclaimer: Even though this this note was dictated by speech recognition and even though it was carefully revised there may still be minor errors in car ferrier due to voice recognition software. Documentation for date of: 04/07/25 Subjective Subjective Interval history: Patient seen and examined at bedside today. Drain shows 40ml brown fluid. Has tender LLQ mass lateral to drain; Rios consulted. Abscess coming to surface, they will do I&D. Exam Vital Signs Temp Pulse Resp BP Pulse Ox O2 Del Method O2 Flow Rate 97.2 F 74 17 161/83 H 96 Room Air 3 04/07/25 08:00 04/07/25 08:57 04/07/25 08:00 04/07/25 08:57 04/07/25 08:00 04/07/25 08:00 04/02/25 14:50 Narrative Exam General: A/O x3, in mild distress due to pain Eyes: PERRL, EOMI. Anicteric, vision grossly intact. Ears: No ear pain, no ear discharge, Hearing grossly intact. Nose: No nasal discharge. Mouth/Throat: Moist mucous membranes, no redness, no lesions. Neck: Neck supple, non-tender, no cervical lymphadenopathy. Lungs: Clear to auscultation bilaterally, no rales/rhonchi/wheezes, no accessory muscle use. Cardio: Normal S1/S2, regular rate and rhythm, no murmurs, no JVD Abdomen: Soft, tender to palpation in LLQ w/ scar from previous percutaneous drainage of abscess. Colostomy bag draining well, dry and intact. Drainage catheter in place, nonerythematous, dressing dry and intact. 04/07/25-tender palpable LLQ mass lateral to drainage cathether, peristalsis present, no guarding or rebound. Extremities: Symmetrical, no significant deformities, no peripheral edema , non-tender, peripheral pulses presents. Skin: No rashes, no lesions, warm to touch. Neuro: No focal neurological deficits. motor and sensory intact Psych: Cooperative, appropriate mood and effect. Objective Labs 04/10/25 04:39 04/10/25 04:39 Labs: Laboratory Results - last 24 hr 04/07/25 05:17 WBC 9.0 RBC 3.74 L Hgb 10.8 L Hct 32.8 L MCV 88 MCH 28.9 MCHC 32.9 RDW Std Deviation 40.3 Plt Count 304 Neut % (Auto) 58 Lymph % (Auto) 29 [place] % (Auto) 10 Eos % (Auto) 1 Baso % (Auto) 1 Neut # (Auto) 5.2 Lymph # (Auto) 2.6 [place] # (Auto) 0.9 H Eos # (Auto) 0.1 Baso # (Auto) 0.1 Immature Gran # (Auto) 0.14 H Absolute Nucleated RBC 0.00 Immature Gran % 2 H Nucleated RBC % 0 Sodium 146 H Potassium 3.8 Chloride 110 H Carbon Dioxide 25.2 Anion Gap 11 BUN 7 L Creatinine 1.4 H Estim Creat Clear Calc 30.0 L eGFR 40 L BUN/Creatinine Ratio 5 L Glucose 92 Calculated Osmolality 288 Calcium 9.2 Corrected Calcium 9.6 Phosphorus 3.6 Magnesium 1.7 Total Bilirubin 0.6 AST 29 ALT 25 Alkaline Phosphatase 117 H Total Protein 6.6 Albumin 3.5 Globulin 3.1 Albumin/Globulin Ratio 1.1 L Quality Measures Quality Measures VTE prophylaxis Advance care planning discussed with:: other Assessment & Plan Assessment Current Active Medications: Generic Name Dose Route Start Last Admin Trade Name Freq PRN Reason Stop Dose Admin Acetaminophen 650 mg 04/01/25 18:27 Acetaminophen 325 Mg Tablet PO 05/01/25 18:26 Q6H PRN Fever >101.5 Hydrocodone Bitart/Acetaminophen 1 tab 04/06/25 12:15 04/06/25 21:13 Hydrocodone/Apap 10/325 Tab PO 04/11/25 12:14 1 tab Q6HR PRN Administration PAIN SCALE 6-10(Mod-Sev Carvedilol 12.5 mg 04/07/25 09:00 04/07/25 08:57 Carvedilol 12.5 Mg Tablet PO 05/07/25 08:59 12.5 mg BID GRANT Administration Hydromorphone HCl 0.5 mg 04/06/25 12:16 04/07/25 11:51 Hydromorphone Inj 2 Mg/Ml Vial IVP 04/11/25 12:10 0.5 mg Q4HR PRN Administration BREAKTHROUGH PAIN (SEVERE) Protocol Piperacillin Sod/Tazobactam 100 mls @ 25 mls/hr 04/03/25 14:00 04/07/25 05:17 Sod 4.5 gm/ Sodium Chloride IV 04/10/25 13:59 25 mls/hr Q8HR GRANT Administration Protocol Ondansetron HCl 4 mg 04/01/25 18:27 04/02/25 05:51 Ondansetron Inj 2 Mg/Ml Inj 2 Ml IVP 05/01/25 18:26 4 mg Q6H PRN Administration NAUSEA OR VOMITING Protocol Plan 74 year old female with history of hypertension, COPD, CKD, diverticulitis s/p diverting colostomy performed 09/2023 at [facility] by Dr. Armando and hospitalized here 11/17-11/20/2024 for diverticular abscess s/p percutaneous drainage by surgeon Dr. Soto on 11/19/2024 presents to the ED for evaluation of intractable LLQ abdominal pain x2 days. Abscess + diverticulitis found on ED CT Ab/Pelv, admitted for planned drainage. #Acute Diverticulitis with Abscess #Colonic Abscess s/p percutenoeus drainage #Transaminitis (resolved) Pt presents with long history of recurrent sigmoid diverticulitis, plan for surgical intervention following urology consultation in June. Most recently pt reports x2 days intractable LLQ Abdominal pain, fever, n/v, and poor oral intake that she characterizes as similar to previous diverticulitis flare-ups. CT Ab/Pelvis 04/01 showed acute sigmoid diverticulitis and thick-walled probable abscess below sigmoid colon 6.2x6.5cm which appears to communicate with bladder. Notably CT from previous visit for percutaneous drainage showed the same abscess ~3cm in diameter at that time, 04/07/25 Catheter today draining well, 40cc of dark brown nonpurulent drainage. LFTs WNL. 04/07/25- tender palpable LLQ mass lateral to drainage cathether Plan: - Appreciate consult general surgery Dr. Howell- palapable mass is abscess breaking through surface, will perform I&D today (04/07/25) - S/p IV Flagyl (04/01-04/03), IV Ciprofloxacin (04/02), IV Rocephin (04/03). Currently on IV Zosyn 4.5gm (04/03-) - Blood cx negative after 5 days. Abscess cx show EColi sensitive to zosyn - CT taken today (04/07/25) #UTI UA 04/01 concerning for UTI though she reports no dysuria today. Urine culture grew E. coli, sensitive to Zosyn. Plan: ? Continue IV Zosyn as above #Hypertension BP 04/07/25- 161/83 Plan: -Carvedilol 12.5mg started 04/07/25 #KAILA (resolved) Creatinine 2.1, BUN 31 in ED. Pt has CKD and notes previous BUNs in range of 20s-30s, unaware of baseline creatinine. Cr 04/07/25 1.4, BUN 7. Plan: -Trend creatinine and BUN #COPD Not in exacerbation currently. Patient saturating well on room air, not currently endorsing respiratory symptoms. Lungs CTA bilaterally. Plan: -Monitor vitals Disposition: Med-Surg DVT prophylaxis: SCDs GI prophylaxis: Diet: regular Lines: PIV CODE STATUS: DNR This case was discussed with my attending physician, Dr. Armenta, and senior resident, Dr. Martines. Isreal Rodriguez MD-PhD, PGY1 Attending Provider Attestation/Addendum I have discussed and was present for the essential components of the history, physical examination, diagnosis, and treatment plan with the resident. I agree with the patient's care as documented by the resident and amended herein by me. Huy Armenta DO. Although this document has been carefully reviewed, there may still be some phonetic and other typographical errors. These errors are purely grammatical due to imperfections in the software program and should not be construed in any way to compromise the substance of the patient's medical care during this visit.
--- NOTE | 2025-04-07 15:56 | PD.SURPROG ---
Documentation for date of: 04/07/25 Subjective Subjective Narrative: Pt is seen and examined. Exam Vital Signs Temp Pulse Resp BP Pulse Ox O2 Del Method O2 Flow Rate 97.2 F 74 17 161/83 H 96 Room Air 3 04/07/25 08:00 04/07/25 08:57 04/07/25 08:00 04/07/25 08:57 04/07/25 08:00 04/07/25 08:00 04/02/25 14:50 Constitutional Constitutional: no acute distress Routine Abdominal Exam Comments: Abdomen is soft and nondistended. Percutaneous drain is in place and intact. She has an area of fluctuance and significant cellulitis on the left lower quadrant consistent with abscess Results Results: Laboratory Laboratory results: results reviewed Results: Imaging CT scan - abdomen: report reviewed and image reviewed CT scan - pelvis: report reviewed and image reviewed Assessment & Plan Assessment Additional comments: LLQ abscess Plan Informed consent was obtained from the patient. I&D LLQ abdominal wall abscess at bedside. Wound was packed with wet-to-dry dressings.
[2025-04-07] MEDS: ZINC SULFATE 220 MG CAPSULE PO (17:19)
[2025-04-07] MEDS: ONDANSETRON INJ 2 MG/ML INJ 2 ML 4 MG IVP (17:49)
[2025-04-07] MEDS: ASCORBIC ACID 250 MG TABLET 500 MG PO (21:38)
[2025-04-08] VITALS (8 sets, daily range): BP systolic 104–169; BP diastolic 59–91; PULSE 65–79; RESP 17–19; TEMP 36.1–36.5; O2SAT 93–96
[2025-04-08] MEDS: PIPER/TAZO INJ 4.5 GM in SODIUM CHLORIDE 0.9% (POP) 100 ML IV ×3 (05:15→21:06)
[2025-04-08 05:24] LABS: Basophils # (Auto) 0.1 Thou/mm3 (0.0-0.2); Basophils % (Auto) 1 % (0-2.5); Eosinophils # (Auto) 0.1 Thou/mm3 (0.0-0.5); Eosinophils % (Auto) 2 % (0-10); Hematocrit 33.6 % (36.0-46.0); Hemoglobin 11.2 g/dL (12.0-16.0); Immature Granulocytes Auto 0.11 Thou/mm3 (0.00-0.00); Lymphocytes # (Auto) 2.3 Thou/mm3 (1.0-4.8); Lymphocytes % (Auto) 30 % (10-50); Mean Corpuscular HGB Conc 33.3 g/dl (31.0-37.0); Mean Corpuscular Hemoglobin 29.2 pg (25.0-35.0); Mean Corpuscular Volume 88 fL (80-100); Monocytes # (Auto) 0.7 Thou/mm3 (0.0-0.8); Monocytes % (Auto) 10 % (0-12); Neutrophils # (Auto) 4.4 Thou/mm3 (1.8-7.7); Neutrophils % (Auto) 57 % (37-80); Nucleated Red Blood Cell # 0.00 Thou/mm3 (0.00-0.00); Nucleated Red Blood Cell % 0 /100 WBC (0); Platelet Count 279 Thou/mm3 (140-440); RDW Standard Deviation 40.0 fL (36.4-46.3); Red Blood Count 3.83 Miln/mm3 (4.00-5.20); White Blood Count 7.8 Thou/mm3 (3.6-11.0)
[2025-04-08 05:42] LABS: Alanine Aminotransferase 39 U/L (10-49); Albumin, Serum 3.3 gm/dL (3.4-4.8); Albumin/Globulin Ratio 1.1 (1.2-2.2); Alkaline Phosphatase 118 U/L (46-116); Anion Gap 11 (7-16); Aspartate Amino Transferase 41 U/L (0-34); BUN/Creatinine Ratio 7 Ratio (12-20); Bilirubin,Total 0.5 mg/dL (0.3-1.2); Blood Urea Nitrogen 10 mg/dL (9-23); Calcium 8.9 mg/dL (8.3-10.6); Calcium (Corrected) 9.5 mg/dL (8.5-10.1); Carbon Dioxide 23.0 mMol/L (20.0-31.0); Chloride 109 mMol/L (98-107); Creatinine (Component) 1.4 mg/dL (0.6-1.3); Estimated Creatinine Clearance 30.0 mL/min (>60); Globulin 3.1 gm/dL (2.3-3.5); Glucose 83 mg/dL (74-106); Osmolality,Calculated 282 (275-295); Potassium 4.0 mMol/L (3.4-5.1); Sodium 143 mMol/L (136-145); Total Protein 6.4 gm/dL (5.7-8.2); eGFR 40 See Note
[2025-04-08] MEDS: ONDANSETRON INJ 2 MG/ML INJ 2 ML 4 MG IVP ×2 (07:55→13:46)
--- NOTE | 2025-04-08 09:12 | PC.NURSE ---
DR. NILE HEWITT, MADE AWARE OF X1 EMESIS AFTER DILAUDID GIVEN, TODAY PT C/O NAUSEA AND POOR APPETITE. NO NEW ORDERS.
[2025-04-08] MEDS: ASCORBIC ACID 250 MG TABLET 500 MG PO ×2 (09:17→21:06)
[2025-04-08] MEDS: ZINC SULFATE 220 MG CAPSULE PO (09:17)
--- NOTE | 2025-04-08 10:22 | ESPR_ITS ---
<Statement entered by Kin Drummond MD - 04/08/25 17:34> Patient was seen and evaluated at bedside this morning. No acute overnight events. Patient still having more than 70 cc of output through the drainage bag therefore we will continue to monitor until less than 20 cc output in 24 hours. Patient otherwise did not have any complaints today. Still some tenderness around the I&D site. No spikes in WBC or fevers. General: A/O x3, no acute distress, well-nourished, well-developed Eyes: PERRL, EOMI. Anicteric, vision grossly intact. Ears: No ear pain, no ear discharge, Hearing grossly intact. Nose: No nasal discharge. Mouth/Throat: Moist mucous membranes, no redness, no lesions. Neck: Neck supple, non-tender, no cervical lymphadenopathy. Lungs: Clear LEAH to auscultation and percussion, No accessory muscle use. Cardio: Normal S1/S2, regular rhythm, no murmurs, no JVD or carotid bruits. Abdomen: Soft, LLQ mildly tender, no palpable masses, peristalsis present, no guarding or rebound. Colostomy bag in place w/o blood. Extremities: Symmetrical, no significant deformities, no peripheral edema , non-tender, peripheral pulses presents. Skin: No rashes, no lesions, warm to touch. drainage in place LLQ with brownish output and I/D site with dressing over. Neuro: No focal neurological deficits. motor and sensory intact Psych: Cooperative, appropriate mood and effect. I have reviewed the note and agree with the medical student's assessment & plan with exceptions as above. I have personally reviewed labs, imaging, home meds/prior records, examined the patient, formulated and discussed management plan with my attending Kin Drummond PGY2 Disclaimer: Even though this this note was dictated by speech recognition and even though it was carefully revised there may still be minor errors in military cook due to voice recognition software. Documentation for date of: 04/08/25 Subjective Subjective Interval history: Spoke at length with patient and nurse this AM for updates. Overnight no acute events. This morning the pt reports tenderness around I&D site. She denies any n/v, fever/chills, chest pain, headache, dysuria. Colostomy bag is full of material. Overnight abscess drainage 70ccs of brown fluid. Exam Vital Signs Temp Pulse Resp BP Pulse Ox O2 Del Method O2 Flow Rate 97.1 F 79 18 169/91 H 93 L Room Air 3 04/08/25 08:00 04/08/25 09:17 04/08/25 08:00 04/08/25 09:17 04/08/25 08:00 04/08/25 08:00 04/08/25 04:00 Narrative Exam General: A/O x3, no acute distress Eyes: PERRL, EOMI. Anicteric, vision grossly intact. Ears: No ear pain, no ear discharge, Hearing grossly intact. Nose: No nasal discharge. Mouth/Throat: Moist mucous membranes, no redness, no lesions. Neck: Neck supple, non-tender, no cervical lymphadenopathy. Lungs: Clear to auscultation bilaterally, no rales/rhonchi/wheezes, no accessory muscle use. Cardio: Normal S1/S2, regular rate and rhythm, no murmurs, no JVD Abdomen: Soft, TTP LLQ w/ scar from previous percutaneous drainage of abscess. Colostomy bag draining well, dry and intact. Drainage catheter in place, nonerythematous, dressing dry and intact. No palpable masses, peristalsis present, no guarding or rebound. Extremities: Symmetrical, no significant deformities, no peripheral edema , non-tender, peripheral pulses presents. Skin: No rashes, no lesions, warm to touch. Neuro: No focal neurological deficits. motor and sensory intact Psych: Cooperative, appropriate mood and effect. Objective Labs 04/09/25 05:01 04/09/25 05:01 Labs: Laboratory Results - last 24 hr 04/07/25 04/08/25 05:17 04:36 WBC 7.8 RBC 3.83 L Hgb 11.2 L Hct 33.6 L MCV 88 MCH 29.2 MCHC 33.3 RDW Std Deviation 40.0 Plt Count 279 Neut % (Auto) 57 Lymph % (Auto) 30 [place] % (Auto) 10 Eos % (Auto) 2 Baso % (Auto) 1 Neut # (Auto) 4.4 Lymph # (Auto) 2.3 [place] # (Auto) 0.7 Eos # (Auto) 0.1 Baso # (Auto) 0.1 Immature Gran # (Auto) 0.11 H Absolute Nucleated RBC 0.00 Immature Gran % 1 H Nucleated RBC % 0 Sodium 143 Potassium 4.0 Chloride 109 H Carbon Dioxide 23.0 Anion Gap 11 BUN 10 Creatinine 1.4 H Estim Creat Clear Calc 30.0 L eGFR 40 L BUN/Creatinine Ratio 7 L Glucose 83 Calculated Osmolality 282 Calcium 8.9 Corrected Calcium 9.5 Phosphorus 3.6 Magnesium 1.7 Total Bilirubin 0.5 AST 41 H ALT 39 Alkaline Phosphatase 118 H Total Protein 6.4 Albumin 3.3 L Globulin 3.1 Albumin/Globulin Ratio 1.1 L Quality Measures Quality Measures VTE prophylaxis Advance care planning discussed with:: patient Assessment & Plan Assessment Current Active Medications: Generic Name Dose Route Start Last Admin Trade Name Freq PRN Reason Stop Dose Admin Acetaminophen 650 mg 04/01/25 18:27 Acetaminophen 325 Mg Tablet PO 05/01/25 18:26 Q6H PRN Fever >101.5 Hydrocodone Bitart/Acetaminophen 1 tab 04/06/25 12:15 04/07/25 21:39 Hydrocodone/Apap 10/325 Tab PO 04/11/25 12:14 1 tab Q6HR PRN Administration PAIN SCALE 6-10(Mod-Sev Ascorbic Acid 500 mg 04/07/25 21:00 04/08/25 09:17 Ascorbic Acid 250 Mg Tablet PO 05/07/25 20:59 500 mg BID GRANT Administration Carvedilol 12.5 mg 04/07/25 09:00 04/08/25 09:17 Carvedilol 12.5 Mg Tablet PO 05/07/25 08:59 12.5 mg BID GRANT Administration Hydromorphone HCl 0.5 mg 04/06/25 12:16 04/07/25 17:24 Hydromorphone Inj 2 Mg/Ml Vial IVP 04/11/25 12:10 0.5 mg Q4HR PRN Administration BREAKTHROUGH PAIN (SEVERE) Protocol Piperacillin Sod/Tazobactam 100 mls @ 25 mls/hr 04/03/25 14:00 04/08/25 05:15 Sod 4.5 gm/ Sodium Chloride IV 04/10/25 13:59 25 mls/hr Q8HR GRANT Administration Protocol Ondansetron HCl 4 mg 04/01/25 18:27 04/08/25 07:55 Ondansetron Inj 2 Mg/Ml Inj 2 Ml IVP 05/01/25 18:26 4 mg Q6H PRN Administration NAUSEA OR VOMITING Protocol Zinc Sulfate 220 mg 04/07/25 16:00 04/08/25 09:17 Zinc Sulfate 220 Mg Capsule PO 05/07/25 15:59 220 mg QDAY GRANT Administration Plan 74 year old female with history of hypertension, COPD, CKD, diverticulitis s/p diverting colostomy performed 09/2023 at [facility] by Dr. Armando and hospitalized here 11/17-11/20/2024 for diverticular abscess s/p percutaneous drainage by surgeon Dr. Soto on 11/19/2024 presents to the ED for evaluation of intractable LLQ abdominal pain x2 days. Abscess + diverticulitis found on ED CT Ab/Pelv, admitted for planned drainage. #Acute Diverticulitis with Abscess #Colonic Abscess s/p percutenoeus drainage #Transaminitis (resolved) Pt presents with long history of recurrent sigmoid diverticulitis, plan for surgical intervention following urology consultation in June. Most recently pt reports x2 days intractable LLQ Abdominal pain, fever, n/v, and poor oral intake that she characterizes as similar to previous diverticulitis flare-ups. CT Ab/Pelvis 04/01 showed acute sigmoid diverticulitis and thick-walled probable abscess below sigmoid colon 6.2x6.5cm which appears to communicate with bladder. Notably CT from previous visit for percutaneous drainage showed the same abscess ~3cm in diameter at that time. 04/07/25 Catheter today draining well, 40cc of dark brown nonpurulent drainage, overall pelvic abscess greatly reduced. However physical exam revealed LLQ tender mass 04/07 which required same day I&D. LFTs today show mild AST (41) and ALP (118) elevation. - Appreciate consult general surgery Dr. Howell, per recs will consider discharge once drainage is <10ccs. - S/p IV Flagyl (04/01-04/03), IV Ciprofloxacin (04/02), IV Rocephin (04/03). Currently on IV Zosyn 4.5gm (04/03-) - Blood cx negative after 5 days. Abscess cx show EColi sensitive to zosyn - Given concern for outpatient antibiotic management, will consult Dr. Mosqueda ID regarding discharge antibiotic regimen #UTI UA 04/01 concerning for UTI though she reports no dysuria today. Urine culture grew E. coli, sensitive to Zosyn. ? Continue IV Zosyn as above #Hypertension BP became elevated to 160s SBP 04/07/25, however pt was also in pain/distressed from palpable LLQ requiring I&D. BP today WNL -Cont carvedilol 12.5mg (04/07-) #KAILA (resolved) Creatinine 2.1, BUN 31 in ED. Pt has CKD and notes previous BUNs in range of 20s-30s, unaware of baseline creatinine. Cr 04/08/25 1.4, BUN 10. -Trend creatinine and BUN #COPD Not in exacerbation currently. Patient saturating well on room air, not currently endorsing respiratory symptoms. Lungs CTA bilaterally. -Monitor vitals Disposition: Med-Surg DVT prophylaxis: SCDs Diet: regular Lines: PIV CODE STATUS: DNR This case was discussed with my attending physician, Dr. Van, and senior resident, Dr. Martines. TETO Mo Attending Provider Attestation/Addendum I reviewed labs, imaging, EKG, home medications and prior available records. Face to face evaluation was performed by me. I have personally examined the patient and discussed assessment and plan with the IM team. I reviewed the resident note and agree with the plan with exceptions as below. Diverticulitis with abscess Status post percutaneous drainage Drain amount is more than 50 cc. Goal is less than 10 cc in 24 hours Consulted ID for IV antibiotics upon discharge Management of pain/nausea as needed
--- NOTE | 2025-04-08 12:09 | PD.SURPROG ---
Documentation for date of: 04/08/25 Subjective Subjective Narrative: Patient is seen and examined. Her pain is improving. Exam Vital Signs Temp Pulse Resp BP Pulse Ox O2 Del Method O2 Flow Rate 97.1 F 79 18 169/91 H 93 L Room Air 3 04/08/25 08:00 04/08/25 09:17 04/08/25 08:00 04/08/25 09:17 04/08/25 08:00 04/08/25 08:00 04/08/25 04:00 Constitutional Constitutional: no acute distress Routine Abdominal Exam Comments: Abdomen is soft and nondistended. Colostomy is functioning. Drain is in place and intact. Left lower quadrant incision and drain site with dressings in place, minimal purulent output Assessment & Plan Assessment Additional comments: Status post percutaneous drainage of peridiverticular abscess. She underwent I&D of left lower quadrant abdominal wall abscess Plan Continue IV antibiotics. Wound care as directed. She still has significant drainage from percutaneous drainage
[2025-04-08] MEDS: HYDROmorphone INJ 2 MG/ML VIAL 0.5 MG IVP ×2 (13:47→20:26)
--- NOTE | 2025-04-08 19:54 | PC.NURSE ---
Patient is refusing wound care at this time. Patient is ok to restart wound care during the day.
[2025-04-09] VITALS (8 sets, daily range): BP systolic 118–155; BP diastolic 63–83; PULSE 58–75; RESP 15–18; TEMP 36.1–36.6; O2SAT 92–95; BMI 29.5
[2025-04-09] MEDS: PIPER/TAZO INJ 4.5 GM in SODIUM CHLORIDE 0.9% (POP) 100 ML IV ×2 (05:17→13:29)
[2025-04-09 05:53] LABS: Basophils # (Auto) 0.1 Thou/mm3 (0.0-0.2); Basophils % (Auto) 1 % (0-2.5); Eosinophils # (Auto) 0.2 Thou/mm3 (0.0-0.5); Eosinophils % (Auto) 2 % (0-10); Hematocrit 33.3 % (36.0-46.0); Hemoglobin 11.1 g/dL (12.0-16.0); Immature Granulocytes Auto 0.09 Thou/mm3 (0.00-0.00); Lymphocytes # (Auto) 2.5 Thou/mm3 (1.0-4.8); Lymphocytes % (Auto) 23 % (10-50); Mean Corpuscular HGB Conc 33.3 g/dl (31.0-37.0); Mean Corpuscular Hemoglobin 29.5 pg (25.0-35.0); Mean Corpuscular Volume 89 fL (80-100); Monocytes # (Auto) 1.1 Thou/mm3 (0.0-0.8); Monocytes % (Auto) 10 % (0-12); Neutrophils # (Auto) 6.9 Thou/mm3 (1.8-7.7); Neutrophils % (Auto) 64 % (37-80); Nucleated Red Blood Cell # 0.00 Thou/mm3 (0.00-0.00); Nucleated Red Blood Cell % 0 /100 WBC (0); Platelet Count 298 Thou/mm3 (140-440); RDW Standard Deviation 40.4 fL (36.4-46.3); Red Blood Count 3.76 Miln/mm3 (4.00-5.20); White Blood Count 10.8 Thou/mm3 (3.6-11.0)
[2025-04-09 06:27] LABS: Alanine Aminotransferase 33 U/L (10-49); Albumin, Serum 3.2 gm/dL (3.4-4.8); Albumin/Globulin Ratio 1.1 (1.2-2.2); Alkaline Phosphatase 99 U/L (46-116); Anion Gap 11 (7-16); Aspartate Amino Transferase 23 U/L (0-34); BUN/Creatinine Ratio 8 Ratio (12-20); Bilirubin,Total 0.4 mg/dL (0.3-1.2); Blood Urea Nitrogen 11 mg/dL (9-23); Calcium 8.4 mg/dL (8.3-10.6); Calcium (Corrected) 9.0 mg/dL (8.5-10.1); Carbon Dioxide 24.9 mMol/L (20.0-31.0); Chloride 109 mMol/L (98-107); Creatinine (Component) 1.4 mg/dL (0.6-1.3); Estimated Creatinine Clearance 30.0 mL/min (>60); Globulin 2.9 gm/dL (2.3-3.5); Glucose 104 mg/dL (74-106); Osmolality,Calculated 288 (275-295); Potassium 3.6 mMol/L (3.4-5.1); Sodium 145 mMol/L (136-145); Total Protein 6.1 gm/dL (5.7-8.2); eGFR 40 See Note
[2025-04-09] MEDS: ASCORBIC ACID 250 MG TABLET 500 MG PO ×2 (08:26→21:29)
[2025-04-09] MEDS: ZINC SULFATE 220 MG CAPSULE PO (08:26)
[2025-04-09] MEDS: ONDANSETRON INJ 2 MG/ML INJ 2 ML 4 MG IVP (08:31)
--- NOTE | 2025-04-09 09:33 | ESPR_ITS ---
<Statement entered by Kin Drummond MD - 04/09/25 11:10> Patient was seen and evaluated at bedside this morning. No acute overnight events. Patient had around 130 cc output of her drainage bag yesterday and overnight had only 5 cc. Patient still has some left lower quadrant pain and is still having some discharge from the I&D site. Still pending drainage output to decrease prior to consideration of discontinuing drainage catheter. Continue IV antibiotics for now. General: A/O x3, no acute distress, well-nourished, well-developed Eyes: PERRL, EOMI. Anicteric, vision grossly intact. Ears: No ear pain, no ear discharge, Hearing grossly intact. Nose: No nasal discharge. Mouth/Throat: Moist mucous membranes, no redness, no lesions. Neck: Neck supple, non-tender, no cervical lymphadenopathy. Lungs: Clear LEAH to auscultation and percussion, No accessory muscle use. Cardio: Normal S1/S2, regular rhythm, no murmurs, no JVD or carotid bruits. Abdomen: Soft, LLQ mildly tender, no palpable masses, peristalsis present, no guarding or rebound. Colostomy bag in place w/o blood. Extremities: Symmetrical, no significant deformities, no peripheral edema , non-tender, peripheral pulses presents. Skin: No rashes, no lesions, warm to touch. drainage in place LLQ with brownish output and I/D site with dressing over. Neuro: No focal neurological deficits. motor and sensory intact Psych: Cooperative, appropriate mood and effect. I have reviewed the note and agree with the medical student's assessment & plan with exceptions as above. I have personally reviewed labs, imaging, home meds/prior records, examined the patient, formulated and discussed management plan with my attending Kin Drummond PGY2 Disclaimer: Even though this this note was dictated by speech recognition and even though it was carefully revised there may still be minor errors in cable armorer operator due to voice recognition software. Documentation for date of: 04/09/25 Subjective Subjective Interval history: Spoke at length with patient and nurse this AM. Overnight no acute events. Abscess catheter is draining well, dark brown nonpurulent fluid. Colostomy bag is full of material. This morning she reports ongoing tenderness surrounding the catheter/I&D site. She denies dysuria, SOB, fever/chills, chest pain, n/v/d. Exam Vital Signs Temp Pulse Resp BP Pulse Ox O2 Del Method O2 Flow Rate 97.1 F 75 17 151/78 H 92 L Room Air 3 04/09/25 08:00 04/09/25 08:26 04/09/25 08:00 04/09/25 08:26 04/09/25 08:00 04/09/25 08:00 04/08/25 04:00 Narrative Exam General: A/O x3, no acute distress Eyes: PERRL, EOMI. Anicteric, vision grossly intact. Ears: No ear pain, no ear discharge, Hearing grossly intact. Nose: No nasal discharge. Mouth/Throat: Moist mucous membranes, no redness, no lesions. Neck: Neck supple, non-tender, no cervical lymphadenopathy. Lungs: Clear to auscultation bilaterally, no rales/rhonchi/wheezes, no accessory muscle use. Cardio: Normal S1/S2, regular rate and rhythm, no murmurs, no JVD Abdomen: Soft, TTP LLQ w/ scar from previous percutaneous drainage of abscess. Colostomy bag draining well, dry and intact. Drainage catheter in place, nonerythematous, dressing dry and intact. No palpable masses, peristalsis present, no guarding or rebound. Extremities: Symmetrical, no significant deformities, no peripheral edema , non-tender, peripheral pulses presents. Skin: No rashes, no lesions, warm to touch. Neuro: No focal neurological deficits. motor and sensory intact Psych: Cooperative, appropriate mood and effect. Objective Labs 04/10/25 04:39 04/10/25 04:39 Labs: Laboratory Results - last 24 hr 04/09/25 05:01 WBC 10.8 RBC 3.76 L Hgb 11.1 L Hct 33.3 L MCV 89 MCH 29.5 MCHC 33.3 RDW Std Deviation 40.4 Plt Count 298 Neut % (Auto) 64 Lymph % (Auto) 23 [place] % (Auto) 10 Eos % (Auto) 2 Baso % (Auto) 1 Neut # (Auto) 6.9 Lymph # (Auto) 2.5 [place] # (Auto) 1.1 H Eos # (Auto) 0.2 Baso # (Auto) 0.1 Immature Gran # (Auto) 0.09 H Absolute Nucleated RBC 0.00 Immature Gran % 1 H Nucleated RBC % 0 Sodium 145 Potassium 3.6 Chloride 109 H Carbon Dioxide 24.9 Anion Gap 11 BUN 11 Creatinine 1.4 H Estim Creat Clear Calc 30.0 L eGFR 40 L BUN/Creatinine Ratio 8 L Glucose 104 Calculated Osmolality 288 Calcium 8.4 Corrected Calcium 9.0 Total Bilirubin 0.4 AST 23 ALT 33 Alkaline Phosphatase 99 Total Protein 6.1 Albumin 3.2 L Globulin 2.9 Albumin/Globulin Ratio 1.1 L Quality Measures Quality Measures VTE prophylaxis Advance care planning discussed with:: patient Assessment & Plan Assessment Current Active Medications: Generic Name Dose Route Start Last Admin Trade Name Freq PRN Reason Stop Dose Admin Acetaminophen 650 mg 04/01/25 18:27 Acetaminophen 325 Mg Tablet PO 05/01/25 18:26 Q6H PRN Fever >101.5 Hydrocodone Bitart/Acetaminophen 1 tab 04/06/25 12:15 04/07/25 21:39 Hydrocodone/Apap 10/325 Tab PO 04/11/25 12:14 1 tab Q6HR PRN Administration PAIN SCALE 6-10(Mod-Sev Ascorbic Acid 500 mg 04/07/25 21:00 04/09/25 08:26 Ascorbic Acid 250 Mg Tablet PO 05/07/25 20:59 500 mg BID GRANT Administration Carvedilol 12.5 mg 04/07/25 09:00 04/09/25 08:26 Carvedilol 12.5 Mg Tablet PO 05/07/25 08:59 12.5 mg BID GRANT Administration Hydromorphone HCl 0.5 mg 04/06/25 12:16 04/08/25 20:26 Hydromorphone Inj 2 Mg/Ml Vial IVP 04/11/25 12:10 0.5 mg Q4HR PRN Administration BREAKTHROUGH PAIN (SEVERE) Protocol Piperacillin Sod/Tazobactam 100 mls @ 25 mls/hr 04/03/25 14:00 04/09/25 05:17 Sod 4.5 gm/ Sodium Chloride IV 04/10/25 13:59 25 mls/hr Q8HR GRANT Administration Protocol Ondansetron HCl 4 mg 04/01/25 18:27 04/09/25 08:31 Ondansetron Inj 2 Mg/Ml Inj 2 Ml IVP 05/01/25 18:26 4 mg Q6H PRN Administration NAUSEA OR VOMITING Protocol Zinc Sulfate 220 mg 04/07/25 16:00 04/09/25 08:26 Zinc Sulfate 220 Mg Capsule PO 05/07/25 15:59 220 mg QDAY GRANT Administration Plan 74 year old female with history of hypertension, COPD, CKD, diverticulitis s/p diverting colostomy performed 09/2023 at [facility] by Dr. Armando and hospitalized here 11/17-11/20/2024 for diverticular abscess s/p percutaneous drainage by surgeon Dr. Soto on 11/19/2024 presents to the ED for evaluation of intractable LLQ abdominal pain x2 days. Abscess + diverticulitis found on ED CT Ab/Pelv, admitted for planned drainage. #Acute Diverticulitis with Abscess #Colonic Abscess s/p percutenoeus drainage #Transaminitis (resolved) Pt presents with long history of recurrent sigmoid diverticulitis, plan for surgical intervention following urology consultation in June. Most recently pt reports x2 days intractable LLQ Abdominal pain, fever, n/v, and poor oral intake that she characterizes as similar to previous diverticulitis flare-ups. CT Ab/Pelvis 04/01 showed acute sigmoid diverticulitis and thick-walled probable abscess below sigmoid colon 6.2x6.5cm which appears to communicate with bladder. Notably CT from previous visit for percutaneous drainage showed the same abscess ~3cm in diameter at that time. 04/07/25 Catheter today draining well, 40cc of dark brown nonpurulent drainage, overall pelvic abscess greatly reduced. However physical exam revealed LLQ tender mass 04/07 which required same day I&D. LFTs today show mild AST (41) and ALP (118) elevation. - Appreciate consult general surgery Dr. Howell, per recs will consider discharge once drainage is <10ccs. - S/p IV Flagyl (04/01-04/03), IV Ciprofloxacin (04/02), IV Rocephin (04/03). Currently on IV Zosyn 4.5gm (04/03-) - Blood cx negative after 5 days. Abscess cx show EColi sensitive to zosyn #UTI UA 04/01 concerning for UTI though she reports no dysuria today. Urine culture grew E. coli, sensitive to Zosyn. ? Continue IV Zosyn as above #Hypertension BP became elevated to 160s SBP 04/07/25, however pt was also in pain/distressed from palpable LLQ requiring I&D. BP today WNL -Cont carvedilol 12.5mg (04/07-) #KAILA (resolved) Creatinine 2.1, BUN 31 in ED. Pt has CKD and notes previous BUNs in range of 20s-30s, unaware of baseline creatinine. Cr 04/08/25 1.4, BUN 10. -Trend creatinine and BUN #COPD Not in exacerbation currently. Patient saturating well on room air, not currently endorsing respiratory symptoms. Lungs CTA bilaterally. -Monitor vitals Disposition: Med-Surg DVT prophylaxis: SCDs Diet: regular Lines: PIV CODE STATUS: DNR This case was discussed with my attending physician, Dr. Armenta, and senior resident, Dr. Martines. TETO Mo Attending Provider Attestation/Addendum I have discussed and was present for the essential components of the history, physical examination, diagnosis, and treatment plan with the resident. I agree with the patient's care as documented by the resident and amended herein by me. Huy Armenta DO. Although this document has been carefully reviewed, there may still be some phonetic and other typographical errors. These errors are purely grammatical due to imperfections in the software program and should not be construed in any way to compromise the substance of the patient's medical care during this visit.
--- NOTE | 2025-04-09 15:08 | ESPR_ITS ---
Subjective Subjective Interval history: diverticular disease Exam Vital Signs Temp Pulse Resp BP Pulse Ox O2 Del Method O2 Flow Rate 97.8 F 73 18 155/76 H 95 Room Air 3 04/09/25 12:00 04/09/25 12:00 04/09/25 12:00 04/09/25 12:00 04/09/25 12:00 04/09/25 08:00 04/08/25 04:00 Narrative Exam benign abd. ostomy near midline. LLQ drain present. output limited on flow sheets Objective - Internal Medicine Labs 04/09/25 05:01 04/09/25 05:01 Labs: Laboratory Results - last 24 hr 04/09/25 05:01 WBC 10.8 RBC 3.76 L Hgb 11.1 L Hct 33.3 L MCV 89 MCH 29.5 MCHC 33.3 RDW Std Deviation 40.4 Plt Count 298 Neut % (Auto) 64 Lymph % (Auto) 23 [place] % (Auto) 10 Eos % (Auto) 2 Baso % (Auto) 1 Neut # (Auto) 6.9 Lymph # (Auto) 2.5 [place] # (Auto) 1.1 H Eos # (Auto) 0.2 Baso # (Auto) 0.1 Immature Gran # (Auto) 0.09 H Absolute Nucleated RBC 0.00 Immature Gran % 1 H Nucleated RBC % 0 Sodium 145 Potassium 3.6 Chloride 109 H Carbon Dioxide 24.9 Anion Gap 11 BUN 11 Creatinine 1.4 H Estim Creat Clear Calc 30.0 L eGFR 40 L BUN/Creatinine Ratio 8 L Glucose 104 Calculated Osmolality 288 Calcium 8.4 Corrected Calcium 9.0 Total Bilirubin 0.4 AST 23 ALT 33 Alkaline Phosphatase 99 Total Protein 6.1 Albumin 3.2 L Globulin 2.9 Albumin/Globulin Ratio 1.1 L Assessment & Plan A&P Narrative diverticular abscess ostomy [place] htn. based on meds hld. based on meds po rx ok with cefurox and flagyl and time . may continue abx a few days after drain removal so stop date is somewhat arbitrary Time Spent With Patient Time: Total time spent is greater than 50% in coordination of care (as documented) at patient's floor/unit and/or counseling patient:
--- NOTE | 2025-04-09 15:31 | PC.SS ---
rounding note: Patient is on i.v. antibiotics. Still has drain in place. Discharge plan remains to return home with family.
--- NOTE | 2025-04-09 16:16 | ESCONSULT_ITS ---
RE: CHRISTINA OLIVARES : 1950 DATE OF CONSULTATION: 04/09/2025 REFERRING PHYSICIAN: Eusebio Armenta DO. REASON FOR CONSULTATION: Diverticular abscess. HISTORY OF PRESENT ILLNESS: This patient is a 74-year-old with history of hypertension and hyperlipidemia based on her medications. She has history of diverticular surgery in the past by Dr. Armando, who apparently arranged for colonoscopy after he had opened her and then re-closed her with an ostomy about over a year ago. She promised that he would reconnect her one at some point, but he has yet to do that. ALLERGIES: CODEINE. IMMUNIZATIONS: Last tetanus is unknown. She does not take flu shot every year. She has had 3 COVID vaccines and is uncertain about pneumococcal. FAMILY HISTORY: Positive for brother, who had colon cancer and diverticular disease. SOCIAL HISTORY: She lives at home with her son, her 20+-year-old grandson, who has special needs, a friend, and her son's father. There are no smokers in the home. There is no alcohol use in the home. PHYSICAL EXAMINATION: The exam is benign. The patient has benign abdomen. She is alert, cooperative, and well appearing. She does not appear to be struggling to breathe in any way. There is a rlq ostomy and a drain present in the rlq ASSESSMENT: Diverticular abscess without evidence of tumor at this time. RECOMMENDATIONS: Defer tumor evaluation to Dr. Armando and the oncology team. From an infectious disease standpoint, she could finish her antibiotics on Monday with cefuroxime and Flagyl provided the drain is removed. This offers very similar coverage based on the sensitivities to the IV Zosyn she has been receiving for the past 6 days. I went ahead and made the change to PO in the hopes that she goes home in the near future. If she stays, it is up to you. I will check on her again on Monday if she is still here. If she goes home, I have no objections. DT: 15:14:43 TT: 16:15:00 Ref: [id number] - TID: [id number] MTDD
[2025-04-10] VITALS (8 sets, daily range): BP systolic 133–184; BP diastolic 63–90; PULSE 62–83; RESP 16–18; TEMP 36–36.8; O2SAT 93–96
[2025-04-10 05:39] LABS: Basophils # (Auto) 0.1 Thou/mm3 (0.0-0.2); Basophils % (Auto) 1 % (0-2.5); Eosinophils # (Auto) 0.2 Thou/mm3 (0.0-0.5); Eosinophils % (Auto) 2 % (0-10); Hematocrit 31.7 % (36.0-46.0); Hemoglobin 10.6 g/dL (12.0-16.0); Immature Granulocytes Auto 0.12 Thou/mm3 (0.00-0.00); Lymphocytes # (Auto) 3.2 Thou/mm3 (1.0-4.8); Lymphocytes % (Auto) 36 % (10-50); Mean Corpuscular HGB Conc 33.4 g/dl (31.0-37.0); Mean Corpuscular Hemoglobin 29.9 pg (25.0-35.0); Mean Corpuscular Volume 89 fL (80-100); Monocytes # (Auto) 1.0 Thou/mm3 (0.0-0.8); Monocytes % (Auto) 11 % (0-12); Neutrophils # (Auto) 4.4 Thou/mm3 (1.8-7.7); Neutrophils % (Auto) 49 % (37-80); Nucleated Red Blood Cell # 0.00 Thou/mm3 (0.00-0.00); Nucleated Red Blood Cell % 0 /100 WBC (0); Platelet Count 291 Thou/mm3 (140-440); RDW Standard Deviation 41.5 fL (36.4-46.3); Red Blood Count 3.55 Miln/mm3 (4.00-5.20); White Blood Count 9.0 Thou/mm3 (3.6-11.0)
[2025-04-10 06:00] LABS: Alanine Aminotransferase 26 U/L (10-49); Albumin, Serum 3.2 gm/dL (3.4-4.8); Albumin/Globulin Ratio 1.1 (1.2-2.2); Alkaline Phosphatase 88 U/L (46-116); Anion Gap 9 (7-16); Aspartate Amino Transferase 18 U/L (0-34); BUN/Creatinine Ratio 12 Ratio (12-20); Bilirubin,Total 0.2 mg/dL (0.3-1.2); Blood Urea Nitrogen 15 mg/dL (9-23); Calcium 8.6 mg/dL (8.3-10.6); Calcium (Corrected) 9.2 mg/dL (8.5-10.1); Carbon Dioxide 26.6 mMol/L (20.0-31.0); Chloride 109 mMol/L (98-107); Creatinine (Component) 1.3 mg/dL (0.6-1.3); Estimated Creatinine Clearance 32.3 mL/min (>60); Globulin 2.9 gm/dL (2.3-3.5); Glucose 101 mg/dL (74-106); Osmolality,Calculated 289 (275-295); Potassium 3.8 mMol/L (3.4-5.1); Sodium 145 mMol/L (136-145); Total Protein 6.1 gm/dL (5.7-8.2); eGFR 43 See Note
[2025-04-10 06:33] LABS: Hepatitis C Antibody Non Reactive (Non React)
[2025-04-10] MEDS: ASCORBIC ACID 250 MG TABLET 500 MG PO ×2 (09:00→21:47)
[2025-04-10] MEDS: ZINC SULFATE 220 MG CAPSULE PO (09:00)
--- NOTE | 2025-04-10 10:12 | PD.SURPROG ---
Documentation for date of: 04/10/25 Subjective Subjective Narrative: Patient is seen and examined. Her pain is improving. She is tolerating diet without nausea or vomiting and her colostomy is functioning Exam Vital Signs Temp Pulse Resp BP Pulse Ox O2 Del Method O2 Flow Rate 97.2 F 83 18 157/75 H 95 Room Air 3 04/10/25 08:47 04/10/25 09:00 04/10/25 08:47 04/10/25 09:00 04/10/25 08:47 04/10/25 08:47 04/08/25 04:00 Constitutional Constitutional: no acute distress Routine Abdominal Exam Comments: Abdomen is soft and nondistended. She has some tenderness in the left lower quadrant from the open wound. She has minimal drainage, no bleeding from the wound. Colostomy is functioning Assessment & Plan Assessment Additional comments: Recurrent peridiverticular abscess status post percutaneous drainage. There has not been any output in the last 24 hours Plan Continue IV antibiotics. Consult IR for removal of percutaneous drainage. Continue wound care to left lower quadrant
--- NOTE | 2025-04-10 11:17 | ESPR_ITS ---
Documentation for date of: 04/10/25 Subjective Subjective Interval history: Patient was seen examined bedside's morning. No acute overnight events. ID saw the patient yesterday and switch patient's IV antibiotics to oral Flagyl and cefuroxime. Patient's drainage seem to have not have any output in the last 24 hours and per surgery would like IR to discontinue the drainage at this time. No other complaints at this time and no spikes in fevers or WBC. Will continue to monitor and possible discharge in the next 24 to 48 hours. Exam Vital Signs Temp Pulse Resp BP Pulse Ox O2 Del Method O2 Flow Rate 97.2 F 83 18 157/75 H 95 Room Air 3 04/10/25 08:47 04/10/25 09:00 04/10/25 08:47 04/10/25 09:00 04/10/25 08:47 04/10/25 08:47 04/08/25 04:00 Narrative Exam General: A/O x3, no acute distress, well-nourished, well-developed Eyes: PERRL, EOMI. Anicteric, vision grossly intact. Ears: No ear pain, no ear discharge, Hearing grossly intact. Nose: No nasal discharge. Mouth/Throat: Moist mucous membranes, no redness, no lesions. Neck: Neck supple, non-tender, no cervical lymphadenopathy. Lungs: Clear LEAH to auscultation and percussion, No accessory muscle use. Cardio: Normal S1/S2, regular rhythm, no murmurs, no JVD or carotid bruits. Abdomen: Soft, LLQ mildly tender, no palpable masses, peristalsis present, no guarding or rebound. Colostomy bag in place w/o blood. Extremities: Symmetrical, no significant deformities, no peripheral edema , non-tender, peripheral pulses presents. Skin: No rashes, no lesions, warm to touch. drainage in place LLQ with minimal to no output and I/D site with dressing over. Neuro: No focal neurological deficits. motor and sensory intact Psych: Cooperative, appropriate mood and effect. Objective Labs 04/10/25 04:39 04/10/25 04:39 Labs: Laboratory Results - last 24 hr 04/10/25 04:39 WBC 9.0 RBC 3.55 L Hgb 10.6 L Hct 31.7 L MCV 89 MCH 29.9 MCHC 33.4 RDW Std Deviation 41.5 Plt Count 291 Neut % (Auto) 49 Lymph % (Auto) 36 [place] % (Auto) 11 Eos % (Auto) 2 Baso % (Auto) 1 Neut # (Auto) 4.4 Lymph # (Auto) 3.2 [place] # (Auto) 1.0 H Eos # (Auto) 0.2 Baso # (Auto) 0.1 Immature Gran # (Auto) 0.12 H Absolute Nucleated RBC 0.00 Immature Gran % 1 H Nucleated RBC % 0 Sodium 145 Potassium 3.8 Chloride 109 H Carbon Dioxide 26.6 Anion Gap 9 BUN 15 Creatinine 1.3 Estim Creat Clear Calc 32.3 L eGFR 43 L BUN/Creatinine Ratio 12 Glucose 101 Calculated Osmolality 289 Calcium 8.6 Corrected Calcium 9.2 Total Bilirubin 0.2 L AST 18 ALT 26 Alkaline Phosphatase 88 Total Protein 6.1 Albumin 3.2 L Globulin 2.9 Albumin/Globulin Ratio 1.1 L Hepatitis C Antibody Non Reactive Quality Measures Quality Measures VTE prophylaxis Advance care planning discussed with:: patient Assessment & Plan Assessment Current Active Medications: Generic Name Dose Route Start Last Admin Trade Name Freq PRN Reason Stop Dose Admin Acetaminophen 650 mg 04/01/25 18:27 Acetaminophen 325 Mg Tablet PO 05/01/25 18:26 Q6H PRN Fever >101.5 Hydrocodone Bitart/Acetaminophen 1 tab 04/06/25 12:15 04/09/25 21:30 Hydrocodone/Apap 10/325 Tab PO 04/11/25 12:14 1 tab Q6HR PRN Administration PAIN SCALE 6-10(Mod-Sev Ascorbic Acid 500 mg 04/07/25 21:00 04/10/25 09:00 Ascorbic Acid 250 Mg Tablet PO 05/07/25 20:59 500 mg BID GRANT Administration Carvedilol 12.5 mg 04/07/25 09:00 04/10/25 09:00 Carvedilol 12.5 Mg Tablet PO 05/07/25 08:59 12.5 mg BID GRANT Administration Cefuroxime Axetil 250 mg 04/09/25 21:00 04/10/25 09:00 Cefuroxime Axetil 250 Mg Tablet PO 04/12/25 15:00 250 mg BID GRANT Administration Hydromorphone HCl 0.5 mg 04/06/25 12:16 04/08/25 20:26 Hydromorphone Inj 2 Mg/Ml Vial IVP 04/11/25 12:10 0.5 mg Q4HR PRN Administration BREAKTHROUGH PAIN (SEVERE) Protocol Metronidazole 500 mg 04/09/25 22:00 04/10/25 05:13 Metronidazole 250 Mg Tablet PO 04/12/25 21:59 500 mg TID GRANT Administration Ondansetron HCl 4 mg 04/01/25 18:27 04/09/25 08:31 Ondansetron Inj 2 Mg/Ml Inj 2 Ml IVP 05/01/25 18:26 4 mg Q6H PRN Administration NAUSEA OR VOMITING Protocol Zinc Sulfate 220 mg 04/07/25 16:00 04/10/25 09:00 Zinc Sulfate 220 Mg Capsule PO 05/07/25 15:59 220 mg QDAY GRANT Administration Plan 74 year old female with history of hypertension, COPD, CKD, diverticulitis s/p diverting colostomy performed 09/20[facility] at [facility] by Dr. Armando and hospitalized here 11/17-11/20/2024 for diverticular abscess s/p percutaneous drainage by surgeon Dr. Soto on 11/19/2024 presents to the ED for evaluation of intractable LLQ abdominal pain x2 days. Abscess + diverticulitis found on ED CT Ab/Pelv, admitted for planned drainage. #Acute Diverticulitis with Abscess #Colonic Abscess s/p percutenoeus drainage #Transaminitis (resolved) Pt presents with long history of recurrent sigmoid diverticulitis, plan for surgical intervention following urology consultation in June. Most recently pt reports x2 days intractable LLQ Abdominal pain, fever, n/v, and poor oral intake that she characterizes as similar to previous diverticulitis flare-ups. CT Ab/Pelvis 04/01 showed acute sigmoid diverticulitis and thick-walled probable abscess below sigmoid colon 6.2x6.5cm which appears to communicate with bladder. Notably CT from previous visit for percutaneous drainage showed the same abscess ~3cm in diameter at that time. 04/07/25 Catheter today draining well, 40cc of dark brown nonpurulent drainage, overall pelvic abscess greatly reduced. However physical exam revealed LLQ tender mass 04/07 which required same day I&D. LFTs today show mild AST (41) and ALP (118) elevation. - Appreciate consult general surgery Dr. Howell, per recs will consider discharge once drainage is <10ccs. - S/p IV Flagyl (10/7-04/03), IV Ciprofloxacin (04/02), IV Rocephin (04/03). Currently on IV Zosyn 4.5gm (04/03-04/09) - Blood cx negative after 5 days. Abscess cx show EColi sensitive to zosyn -DC drainage by IR ordered - On flagyl 500mg TID and cefuroxime 250 mg BID until 04/12/2025 #UTI UA 04/01 concerning for UTI though she reports no dysuria today. Urine culture grew E. coli, sensitive to Zosyn. ? Continue cefuroxime until #Hypertension BP became elevated to 160s SBP 04/07/25, however pt was also in pain/distressed from palpable LLQ requiring I&D. BP today WNL -Cont carvedilol 12.5mg (04/07-) #KAILA (resolved) Creatinine 2.1, BUN 31 in ED. Pt has CKD and notes previous BUNs in range of 20s-30s, unaware of baseline creatinine. Cr 04/10/25 1.3, BUN 15. -Trend creatinine and BUN #COPD Not in exacerbation currently. Patient saturating well on room air, not currently endorsing respiratory symptoms. Lungs CTA bilaterally. -Monitor vitals Disposition: Pending catheter removal Diet: regular GI prophylaxis: none DVT prophylaxis: SCDs Code: DNR Case disclosed with Attending Dr. eGovany Drummond PGY2 Disclaimer: Even though this this note was dictated by speech recognition and even though it was carefully revised there may still be minor errors in boiler tube reamer due to voice recognition software. Attending Provider Attestation/Addendum I have discussed and was present for the essential components of the history, physical examination, diagnosis, and treatment plan with the resident. I agree with the patient's care as documented by the resident and amended herein by me. Huy Armenta DO. Although this document has been carefully reviewed, there may still be some phonetic and other typographical errors. These errors are purely grammatical due to imperfections in the software program and should not be construed in any way to compromise the substance of the patient's medical care during this visit. Patient seen and evaluated this AM. No acute events overnight, vital signs stable, patient afebrile. BP slightly elevated this morning at 180/90. 2 bowel movements reported overnight, drain output minimal this morning. Labs largely unremarkable. Per infectious disease recommendations will continue cefuroxime and Flagyl p.o., general surgery did want her drain out that was placed for her pelvic abscess, IR did request a CT abdomen and pelvis prior to removal which demonstrated the drain slipping out of the abscess location. Likely have the drain removed tomorrow, patient can remain on p.o. antibiotics per ID recommendations, likely discharge tomorrow pending surgery recommendations. Home health for wound care has been ordered patient doing well otherwise.
--- NOTE | 2025-04-10 13:57 | XR_ITS ---
Examination: CT abdomen and pelvis without contrast. Coronal 3-D reconstructions. Sagittal 2-D reconstructions. Date and time of exam: April 10, 2025, comparison April 07, 2025 INDICATIONS: History acute sigmoid diverticulitis, with abscess peridiverticular, post removal abscess drainage catheter CTDI: vol (mGy): 8.94 DLP: (mGycm): 501 Technique: Axial images of the abdomen have been obtained, 3 mm slice thickness Intravenous contrast material has not been administered. Low dose protocols were performed. One or more of the following dose reduction techniques were used; automated exposure control, adjustment of the mA and/or KV according to patient size, use of iterative reconstruction technique. Findings: No focal liver or splenic lesions Absent gallbladder No pancreatic or adrenal mass No hydronephrosis Aorta normal size No bowel obstruction Absent appendix Drainage catheter is retracted from the abscess cavity, axial image 179 compared to the April 07, 2025 exam Inflammatory change in the anterior pelvic wall again noted IMPRESSION: The drainage catheter has retracted from the abscess cavity, axial image 179
[2025-04-11] VITALS (7 sets, daily range): BP systolic 142–162; BP diastolic 66–80; PULSE 59–68; RESP 16–19; TEMP 36.3–36.8; O2SAT 93–97
[2025-04-11] MEDS: ONDANSETRON INJ 2 MG/ML INJ 2 ML 4 MG IVP (05:23)
[2025-04-11 05:51] LABS: Basophils # (Auto) 0.1 Thou/mm3 (0.0-0.2); Basophils % (Auto) 1 % (0-2.5); Eosinophils # (Auto) 0.2 Thou/mm3 (0.0-0.5); Eosinophils % (Auto) 2 % (0-10); Hematocrit 33.1 % (36.0-46.0); Hemoglobin 11.1 g/dL (12.0-16.0); Immature Granulocytes Auto 0.13 Thou/mm3 (0.00-0.00); Lymphocytes # (Auto) 3.0 Thou/mm3 (1.0-4.8); Lymphocytes % (Auto) 33 % (10-50); Mean Corpuscular HGB Conc 33.5 g/dl (31.0-37.0); Mean Corpuscular Hemoglobin 29.8 pg (25.0-35.0); Mean Corpuscular Volume 89 fL (80-100); Monocytes # (Auto) 0.9 Thou/mm3 (0.0-0.8); Monocytes % (Auto) 10 % (0-12); Neutrophils # (Auto) 4.9 Thou/mm3 (1.8-7.7); Neutrophils % (Auto) 53 % (37-80); Nucleated Red Blood Cell # 0.00 Thou/mm3 (0.00-0.00); Nucleated Red Blood Cell % 0 /100 WBC (0); Platelet Count 276 Thou/mm3 (140-440); RDW Standard Deviation 41.1 fL (36.4-46.3); Red Blood Count 3.73 Miln/mm3 (4.00-5.20); White Blood Count 9.1 Thou/mm3 (3.6-11.0)
[2025-04-11 06:10] LABS: Alanine Aminotransferase 24 U/L (10-49); Albumin, Serum 3.3 gm/dL (3.4-4.8); Albumin/Globulin Ratio 1.1 (1.2-2.2); Alkaline Phosphatase 90 U/L (46-116); Anion Gap 9 (7-16); Aspartate Amino Transferase 19 U/L (0-34); BUN/Creatinine Ratio 14 Ratio (12-20); Bilirubin,Total 0.2 mg/dL (0.3-1.2); Blood Urea Nitrogen 18 mg/dL (9-23); Calcium 8.9 mg/dL (8.3-10.6); Calcium (Corrected) 9.5 mg/dL (8.5-10.1); Carbon Dioxide 27.9 mMol/L (20.0-31.0); Chloride 108 mMol/L (98-107); Creatinine (Component) 1.3 mg/dL (0.6-1.3); Estimated Creatinine Clearance 32.3 mL/min (>60); Globulin 3.0 gm/dL (2.3-3.5); Glucose 95 mg/dL (74-106); Osmolality,Calculated 290 (275-295); Potassium 3.8 mMol/L (3.4-5.1); Sodium 145 mMol/L (136-145); Total Protein 6.3 gm/dL (5.7-8.2); eGFR 43 See Note
--- NOTE | 2025-04-11 08:51 | XR_ITS ---
EXAM: Removal of abdominal drainage catheter. INDICATION: Abscess resolved, catheter no longer needed. DATE: 04/11/2025, 8:51 a.m. PROCEDURE: After a discussion of risks and benefits informed consent was obtained. Patient was brought to the IR holding area. The area around the existing, drainage catheter was cleaned and draped in normal sterile surgical fashion. The catheter was cut and was removed easily with gentle traction. The access site was covered with a sterile dressing. Hemostasis was achieved. There were no immediate complications. IMPRESSION: Successful bedside removal of abdominal drainage catheter as above.
[2025-04-11] MEDS: ZINC SULFATE 220 MG CAPSULE PO (09:25)
[2025-04-11] MEDS: ASCORBIC ACID 250 MG TABLET 500 MG PO (09:25)
--- NOTE | 2025-04-11 10:51 | PD.IDPROG ---
Subjective Subjective Interval history: on po rx. will see again prn Exam Vital Signs Temp Pulse Resp BP Pulse Ox O2 Del Method O2 Flow Rate 97.8 F 67 17 156/80 H 93 L Room Air 3 04/11/25 08:00 04/11/25 09:25 04/11/25 08:56 04/11/25 09:25 04/11/25 08:56 04/11/25 08:56 04/11/25 08:00 Narrative Exam limited eval Objective - Internal Medicine Labs 04/11/25 05:15 04/11/25 05:15 Labs: Laboratory Results - last 24 hr 04/11/25 05:15 WBC 9.1 RBC 3.73 L Hgb 11.1 L Hct 33.1 L MCV 89 MCH 29.8 MCHC 33.5 RDW Std Deviation 41.1 Plt Count 276 Neut % (Auto) 53 Lymph % (Auto) 33 [place] % (Auto) 10 Eos % (Auto) 2 Baso % (Auto) 1 Neut # (Auto) 4.9 Lymph # (Auto) 3.0 [place] # (Auto) 0.9 H Eos # (Auto) 0.2 Baso # (Auto) 0.1 Immature Gran # (Auto) 0.13 H Absolute Nucleated RBC 0.00 Immature Gran % 1 H Nucleated RBC % 0 Sodium 145 Potassium 3.8 Chloride 108 H Carbon Dioxide 27.9 Anion Gap 9 BUN 18 Creatinine 1.3 Estim Creat Clear Calc 32.3 L eGFR 43 L BUN/Creatinine Ratio 14 Glucose 95 Calculated Osmolality 290 Calcium 8.9 Corrected Calcium 9.5 Total Bilirubin 0.2 L AST 19 ALT 24 Alkaline Phosphatase 90 Total Protein 6.3 Albumin 3.3 L Globulin 3.0 Albumin/Globulin Ratio 1.1 L Assessment & Plan A&P Narrative diverticular abscess ostomy [place] htn. based on meds hld. based on meds po rx ok with cefurox and flagyl and time . may continue abx a few days after drain removal so stop date is somewhat arbitrary will see again prn. afebrile. drain removal per others. out of my scope. Time Spent With Patient Time: Total time spent is greater than 50% in coordination of care (as documented) at patient's floor/unit and/or counseling patient:
--- NOTE | 2025-04-11 19:14 | PC.CM ---
Patient accepted by [facility] pending start of care date. We need to send the discharge summary once available.
--- NOTE | 2025-04-11 21:11 | ESDS_ITS ---
Planned Discharge Date 04/11/25 DS: Providers Provider Date of admission: 04/01/25 18:27 Primary care physician: Katharina Arana PA-C Admitting Provider: Eusebio Armenta DO Attending Provider on Admission: Julian Nash MD Consults: 04/01/25 18:30 Consult to General Surgery Routine Comment: Consulting Provider: Quincy Nation 04/08/25 10:14 Consult to Infectious Diseases Routine Comment: Consulting Provider: Nahum Walker 04/08/25 14:51 Referral Wound Care Routine Comment: 04/10/25 14:00 Referral OP Wound Healing Dept Routine Comment: Instructions: LLQ abscess s/p surgical debridement with Dr. Nation Attending Provider on DC: Julian Nash MD Discharging Provider: Julian Nash MD Diagnosis Problem List Completed Was Problem List Reviewed/Reconciled?: Yes Hospital Course - Hospitalist Hospital Course Hospital course: Patient is a 74yo F w/ PMH of HTN, COPD, CKD, diverticulitis s/p diverting colostomy performed 09/2023 at [facility] by Dr. Armando and hospitalized here 11/17-11/20/2024 for diverticular abscess s/p percutaneous drainage by surgeon Dr. Soto on 11/19/2024 presents to the ED for evaluation of intractable LLQ abdominal pain x2 days. She reports multiple previous episodes coinciding with diverticulitis/abscess flare most recently in October. Per her history she was supposed to have colostomy reversed and sigmoidectomy performed by Dr. Armando in December, however she had to reschedule. When she arrived later in December she was hypotensive and unable to complete the surgery. At this point she was informed Dr. Armando wanted to consult Dr. Higgins Urology (most likely d/t abscess communicating with bladder), but Dr. Higgins is not free for consult until June 2025. Imaging revealed acute sigmoid diverticulitis and 6.2x6.5cm sub-sigmoid abscess appearing to communicate with the urinary bladder. Previous CT in October 2024 showed the same abscess ~3cm diameter that had only 6cc drained that admission. UA showed signs of UTI. ED labs showed leukocytosis. She was then admitted for acute diverticulitis with possible colonic abscess and KAILA. Patient was started on IV antibiotics and fluids. Patient then received percutaneous drainage catheter following which her pelvic aspirate sites greatly improved. At bedside today, patient appears comfortable and denies any new complaints. Her vitals are stable, lab results are stable as well. Patient underwent catheter removal today. Discussed with general surgery, agreed on patient being stable for discharge. We will discharge patient on cefuroxime and metronidazole oral for 4 more days. Infectious disease following closely as well, appreciate recommendations. We will also continue patient's home losartan carvedilol and simvastatin. Patient is recommended to follow-up with her PCP and general surgery in 1 week of discharge. She will also continue with wound care with home health. #Acute Diverticulitis with Abscess #Colonic Abscess s/p percutenoeus drainage #Transaminitis (resolved) #UTI #Hypertension #KAILA (resolved) #COPD Julian Nash MD Time Spent with Patient Time attestation: Total time spent providing and/or coordinating discharge services: 40 min Time spent: Greater than 30 minutes Home Health Home Health Referral Orders: 04/10/25 18:31 Home Health Referral Routine Reason For Exam: debility Home-Bound The patient must either because of illness or injury, need the aid of supportive devices such as crutches, canes, wheelchairs, and walkers; the use of special transportation; or the assistance of another person in order to leave their place of residence; OR have a condition such that leaving his or her home is medically contraindicated. In addition, the patient also meets the following criteria: patient is normally unable to leave the home and leaving home requires considerable taxing effort. Addendum to Home Health Certification Practitioner's Certification: I certify that the patient has been under my care in the hospital and the care of attending physician (see below). We had a [id number] encounter on (see date below). My clinical findings indicate that the patient is home bound per the above criteria and the Home Health Services noted in these orders are medically necessary. The primary reason for the [id number] encounter is related to the fact that the patient requires home health services. Date Certifying [id number] Physician Encounter: 04/01/25 Physician's Name who will Assume Oversight for Services: Katharina B Arzaga Physician's Phone No.who will Assume Oversight [facility] Service: BOBBIN DUMPER - Community Resources: No PT to Evaluate: No PT to evaluate and provide a treatmnet plan to increase patient's mobility and strength. Wound Care: Yes Home Health RN - Wound Care Order: dressing changes at site of I/D Abd LLQ IV Therapy: No Discontinue PICC Line Once Treatment Complete: No RN Safety Evaluation: Yes RN to evaluate and create a plan of care that will produce positive outcomes. Palliative Treatment: No Palliative treatment and evaluate the need for hospice. Home Health Aide - Personal Care: No Home Health Aide to assist with any ADL's. Discharge Results Labs Diagrams: 04/11/25 05:15 04/11/25 05:15 Labs: Short CBC 04/11/25 Range/Units 05:15 WBC 9.1 (3.6-11.0) Thou/mm3 Hgb 11.1 L (12.0-16.0) g/dL Hct 33.1 L (36.0-46.0) % Plt Count 276 (140-440) Thou/mm3 BMP 04/11/25 05:15 Sodium 145 Potassium 3.8 Chloride 108 H Carbon Dioxide 27.9 BUN 18 Creatinine 1.3 Glucose 95 Calcium 8.9 Liver Function 04/11/25 Range/Units 05:15 Total Bilirubin 0.2 L (0.3-1.2) mg/dL AST 19 (0-34) U/L ALT 24 (10-49) U/L Alkaline Phosphatase 90 (46-116) U/L Albumin 3.3 L (3.4-4.8) gm/dL Exam Vital Signs Temp Pulse Resp BP Pulse Ox O2 Del Method O2 Flow Rate 98.2 F 60 18 146/66 H 95 Room Air 3 04/11/25 12:00 04/11/25 12:00 04/11/25 12:00 04/11/25 12:00 04/11/25 12:00 04/11/25 12:00 04/11/25 08:00 Narrative General: A/O x3, no acute distress, well-nourished, well-developed Eyes: PERRL, EOMI. Anicteric, vision grossly intact. ENT: Moist mucous membranes Neck: Neck supple, non-tender, no cervical lymphadenopathy. Lungs: Clear LEAH to auscultation and percussion, No accessory muscle use. Cardio: Normal S1/S2, regular rhythm, no murmurs, no JVD or carotid bruits. Abdomen: Soft, LLQ non tender, no palpable masses, peristalsis present, no guarding or rebound. Colostomy bag in place Extremities: Symmetrical, no significant deformities, no peripheral edema , non-tender, peripheral pulses presents. Skin: No rashes, no lesions, warm to touch. drainage in place LLQ with minimal to no output and I/D site with dressing over. Neuro: No focal neurological deficits. motor and sensory intact Psych: Cooperative, appropriate mood and effect. Discharge Plan Plan Patient Disposition: Home w/HOME HEALTH Patient condition on transfer: Stable Care Plan Goals: 1) Follow up with your General Surgeon as soon as possible. Continue routine weekly colostomy bag changes. 2) Follow up at [facility] for abscess to left abdomen. [address] [place] [address]. Call [phone] for appointment. 3) Wound care to left lower abdomen: May shower than change dressing. Wash hands with soap and water, remove old dressing including wound packing. Irrigate wound with normal saline and pat dry with gauze. Repeat washing hands with soap and water. Lightly moisten packing strip gauze with normal saline and wring out excess. Pack wound to deepest portion of wound until resistance is felt and continue until entire cavity is filled. Cover with dry gauze and tape. Change twice a day and as needed for falling off or saturating. Follow up with [facility], call [phone] for appointment. If active bleeding occurs, apply tight dressing and return to MD or ER. ? Notify primary doctor or return to Emergency Room if any of the following: ? Fever above 100.6? F. ? Increased pain ? Increase swelling ? Red streaks around your wound ? Drainage becomes foul smelling or changes color ? The wound is larger or deeper ? The wound looks dried out or dark ? Bleeding that does not stop with holding pressure You have been started on oral antibiotics, cefuroxime and metronidazole to be continued for 4 more days Continue wound care with home health Follow up with your PCP and General surgery in 1 week of discharge Please visit ED in event of fever, increasing abdominal pain, nausea and vomiting Prescriptions/Referrals Prescriptions/Med Rec: New ascorbic acid (vitamin C) [Vitamin C] 250 mg Tablet 500 mg PO BID 7 Days Qty: 28 0RF cefuroxime axetil 250 mg Tablet 250 mg PO BID 4 Days Qty: 8 0RF metronidazole 250 mg Tablet 500 mg PO TID 4 Days Qty: 24 0RF zinc sulfate 50 mg zinc (220 mg) Capsule 220 mg PO QDAY 7 Days Qty: 31 0RF Continued losartan 50 mg Tablet 50 mg PO QDAY simvastatin 40 mg tablet 40 mg PO 1XD Patient Comments: TAKE 1 TABLET BY MOUTH EVERY DAY IN THE EVENING carvedilol 12.5 mg tablet 12.5 mg PO 2XD Patient Comments: TAKE 1 TABLET BY MOUTH TWICE DAILY Referrals: Katharina Arana PA-C [Primary Care Provider] Patient/Caregiver Discharge Instructions Education Materials: Nutrition for Wound Healing, Incision Care Dc, Changing Dressing Dc, Discharge Instructions Wound ..., Preventing Surgical Site Infections Print Language: Romansh Stand Alone Forms: Josette Award Info., Patient Portal Info Letter Discharge Order Discharge Orders: Discharge (Routine); Ordered 04/11/25 Ordered By: Julian Nash Quality Discharge Quality Measures VTE prophylaxis
--- NOTE | 2025-04-12 08:22 | PC.CC ---
dc summary sent to nain Costello still pending
== END 2025-04-11 14:05 | disposition home health service (06) | DRG 392 ==
LOC: SERX 17:56 → SERHOLD 20:50 → S3SX 04-02 06:20 → SERHOLD 04-02 06:28
PROVIDERS: Internal Medicine Infectious Disease; Nurse Practitioner Family; Admitting Provider Student in an Organized Health Care Education/Training Program; Emergency Provider Emergency Medicine; PCP Physician Assistant; Visit Provider Student in an Organized Health Care Education/Training Program
DX: K57.20 Diverticulitis of large intestine with perforation and abscess without bleeding (principal); N17.9 Acute kidney failure, unspecified; N39.0 Urinary tract infection, site not specified; Z16.23 Resistance to quinolones and fluoroquinolones; N32.1 Vesicointestinal fistula; B96.20 Unspecified Escherichia coli [E. coli] as the cause of diseases classified elsewhere; E78.5 Hyperlipidemia, unspecified; N18.9 Chronic kidney disease, unspecified; I12.9 Hypertensive chronic kidney disease with stage 1 through stage 4 chronic kidney disease, or unspecified chronic kidney disease; J44.9 Chronic obstructive pulmonary disease, unspecified; Z93.3 Colostomy status; Z66 Do not resuscitate; Z90.49 Acquired absence of other specified parts of digestive tract; N73.9 Female pelvic inflammatory disease, unspecified
CPT/HCPCS: 36415; 74176; 74177; 75989; 77001; 80053; 81001; 83605; 83690; 83735; 84100; 85014; 85018; 85025; 85610; 85730; 86803; 87040; 87070; 87075; 87077; 87086; 87186; 87205; 96361; 96365; 96366; 96375; 96376; 99285; A4649; C1729; C1769; J0696; J0744; J1171; J2270; J2405; J2543; J3010; J3490; J7030; J7120; Q9967; A9270; J1836

== ENCOUNTER → 2025-04-24 | Outpatient (CLI) | payer MEDICARE, SELFPAY | END | disposition home or self-care (01) | LOC: SWHD 08:53 | PROVIDERS: PCP Internal Medicine; Referring Provider Internal Medicine; Visit Provider Student in an Organized Health Care Education/Training Program | DX: T81.89XA Other complications of procedures, not elsewhere classified, initial encounter (principal); S31.104A Unspecified open wound of abdominal wall, left lower quadrant without penetration into peritoneal cavity, initial encounter; X58.XXXA Exposure to other specified factors, initial encounter; A49.8 Other bacterial infections of unspecified site; J44.9 Chronic obstructive pulmonary disease, unspecified; L02.211 Cutaneous abscess of abdominal wall; K57.92 Diverticulitis of intestine, part unspecified, without perforation or abscess without bleeding; N18.9 Chronic kidney disease, unspecified; L98.8 Other specified disorders of the skin and subcutaneous tissue; I12.9 Hypertensive chronic kidney disease with stage 1 through stage 4 chronic kidney disease, or unspecified chronic kidney disease | CPT/HCPCS: 99213; G0463 ==